=== PATIENT | female | born 1975 | race Caucasian/White ===

== ENCOUNTER → 2017-09-23 09:50 | Outpatient (CLI) | payer BC, SELFPAY ==
--- NOTE | 2017-09-23 15:02 | NEURO ---
NCS and/or EMG Patient Report Ordering Doctor: Vincenzo Garcia DATE OF SERVICE: 09/23/17 Sada Carlson is a 42 year old female with chief complaint of numbness and tingling in both hands. Electrodiagnostic findings: Prolonged median motor latency bilaterally with normal amplitude and reduced conduction velocity. Normal ulnar motor response bilaterally. Absent right median sensory latency measured at the wrist. Prolonged left median sensory latency is noted. Normal ulnar and radial sensory responses. On needle EMG, all muscles tested in the upper limbs show no evidence of denervation with normal unit action potentials Electrodiagnostic impression: This is an abnormal study in the upper limbs. 1. Findings demonstrate bilateral median mononeuropathy. This is consistent with a moderate to advanced bilateral carpal tunnel syndrome. If there are any further questions, please do not hesitate to contact me
== END ==
PROVIDERS: Family Provider Family Medicine; PCP Family Medicine; Visit Provider Family Medicine
DX: G56.03 Carpal tunnel syndrome, bilateral upper limbs (principal)
CPT/HCPCS: 95886; 95912

== ENCOUNTER 2019-04-22 09:00 | Outpatient (RCR) | payer BC, SELFPAY ==
--- NOTE | 2019-04-11 09:35 | HP.PTEVAL ---
Patient's Visit Information SHANIQUA DORAN is a 43 year old F referred to Physical Therapy by Vincenzo Garcia MD with a diagnosis of Vertigo.. Date of Evaluation: 04/11/19 Physical Therapist: Alden Soto, MATTHEWT, OCS, CSCS - Visit Plan Frequency: 1-2x /Week Duration: 2-4 Weeks Plan: 1-2x/week x 2-4 as needed for positional treatments and balance as needed. - Subjective Findings: Doc says I have vertigo. Tilting head , turning in bed, tilting, and the world spins and typically is under a minute. Has to stop and brace self. Feels normal in between these episodes. Balance is OK in between. This started a while ago patient says for years. Worse lately starting 1.5 weeks ago. Got dizzy flipping on couch to answer phone. Sleep is OK. Employed at [employer] and has not missed work. Activities at home are pretty normal but delayed if dizzyness occurs. - Objective Walks normal today with good balance except when asked to look up. Trasnfers normal. Steps reciprocal and normal. - R hallpike karolyn. + L halpike for slight up torsional nystagmus, some dizzyness and lots of blinking. treated with L [place] and then - Hallpike karolyn - Balance Scores Functional Gait Assessment Score: 29 % Disability: 3.3400 CATSIB Score (Max score 120 seconds): 120 - Goals Goal 1:: abolish vertigo 100% Goal Time Frame: 2-4 Weeks Goal 2:: Pt score perfect on DHI to minimze lifestyle impact. Goal Time Frame: 2-4 Weeks - Rehabilitation Potential Physical Therapy Diagnosis: BPPV L post canal Rehabilitation Potential: Fair - Anticipated Interventions Patient/Client Instruction: Educate patient on: Condition, Plan of Care For the Purpose of:: To increase tolerance to activity/condition/position, To improve balance Therapeutic Exercise to Include: Balance training Comment: positional For the Purpose of:: To increase tolerance to activity/condition/position, To improve balance Thank you for the opportunity to evaluate your patient. For Medicare and Medicare HMO plans, please review the plan of care and approve it. It will need to be FAXED BACK to us at [phone] for Medicare purposes. For Medicare only, by signing this I certify the plan of care. Please let me know if there are questions or concerns regarding this plan of care. Physician Signature: Date:
--- NOTE | 2019-04-22 09:16 | HP.PTDCSUM ---
It has been my pleasure to treat SHANIQUA DORAN referred by Vincenzo Garcia MD, with the diagnosis of Vertigo. for a total of 3 visit(s). Discharge Date: 04/22/19 Please see the following information for a summary of their discharge status. Subjective: Doing really well. Has some moments here adn there. One quick moment yesterday when she was tired. Mostly getting up too quick gives slight sensation for a moment. activities are normal. % Improvement: 90 Objective/Function: - B HD, - roll test. Walking normal and feeling much better. Goal 1:: abolish vertigo 100% Goal Progress: Progressing Goal 2:: Pt score perfect on DHI to minimze lifestyle impact. Goal Progress: Progressing Plan: d/c Discharge Comments: Pt to contact doctor if dizzyness worsens again. If there are questions or concerns regarding this patient's physical therapy, please feel free to call me at [phone]. Thank you for the referral of this patient. Sincerely, Alden Soto, DPT, OCS, CSCS
== END 2019-04-22 19:00 | disposition home or self-care (01) ==
LOC: PT 09:00
PROVIDERS: PCP Family Medicine; Referring Provider Family Medicine; Visit Provider Family Medicine
DX: R42 Dizziness and giddiness (principal)
CPT/HCPCS: 97161; 97530

== ENCOUNTER 2020-06-27 02:55 | Emergency (ER) | payer BC, SELFPAY ==
--- NOTE | 2020-06-27 03:25 | CT_ITS ---
STUDY: CT BRAIN WITHOUT CONTRAST REASON FOR EXAM: Female, 44 years old. Headache. RADIATION DOSAGE (If Supplied By Facility): CTDIvol = ( 44.99 ) mGy, DLP = ( 796.11 ) mGycm TECHNIQUE: Transaxial CT imaging of the brain was performed without administration of intravenous contrast material. Individualized dose optimization techniques were used for this CT. COMPARISON: No relevant priors. FINDINGS: Normal soft tissue structures. Normal calvarium. Normal size ventricles and extra-axial spaces for the patient''s age. Normal white matter tracts of the cerebral hemispheres. Normal basal ganglia and thalami. Normal brainstem. Normal cerebellum. Prominent empty sella. There is no intracranial hemorrhage. There are no findings of an acute ischemic infarction. 0.8 cm mucous retention cyst right sphenoid sinus. Mastoid air cells are well aerated. CT/Brain/Head without Contrast IMPRESSION: No acute intracranial abnormality as above. Electronically Signed: Gabriel Bolanos MD at 4:13 EDT , Service support ,
[2020-06-27 03:58] LABS: Absolute Lymphocyte Count 1.95 X10^3/uL (0.83-4.51); Absolute Neutrophil Count 2.4 X10^3/uL (2.0-7.7); Basophil# 0.05 X10^3/uL; Eosinophil# 0.16 X10^3/uL; Eosinophils% 3.2 % (0-5); Hematocrit 39.8 % (37-47); Hemoglobin 13.1 g/dL (12.0-15.0); Lymphocyte # 1.95 X10^3/ul (0.83-4.51); Lymphocyte % 39.2 % (19-41); Mean Corp Hgb Conc 32.9 g/dL (32-36); Mean Corpuscular Hgb 28.5 pg (27.0-32.0); Mean Corpuscular Volume 86.7 fL (81-99); Mean Platelet Vol. 10.3 fl (6.2-12.0); Monocyte# 0.38 X10^3/uL; Monocyte% 7.6 % (0-10); NRBC Flagged by Analyzer 0 % (0-5); Neutrophil % 48.4 % (47-70); Platelet Count 251 K/mm3 (150-450); RBC Distribution Width CV 12.3 % (11.6-14.6); RBC Distribution Width SD 39.1 fl (35.1-43.9); Red Blood Count 4.59 M/mm3 (4.2-5.4)
[2020-06-27 04:07] LABS: Anion Gap 5 (5-15); BUN 12 mg/dL (7-18); BUN/Creat Ratio 18.2 RATIO (10-20); Calcium,Total 8.7 mg/dL (8.5-10.1); Chloride 108 mmol/L (98-107); Creatinine, Serum 0.66 mg/dL (0.55-1.02); EST Glomerular Filtration Rate 103 mL/min (>60); Est Glom Filt Rate - Afr Amer 125 mL/min (>60); Glucose 116 mg/dL (74-106); Sodium Level 140 mmol/L (136-145)
--- NOTE | 2020-06-27 04:34 | EX.ED.VIS.HA ---
HPI History of Present Illness Informant: patient and family Onset/Context/Timing Onset: Yesterday (1300) Context: Gradual Timing: Continuous Quality -Headache: Positive for Throbbing Location: Left side of face and had Current Severity: Severe Maximum Severity: Severe Worsened by: Light and sound Relieved by: Nothing Associated Symptoms/Injury Associated Symptoms: Positive for Nausea and Photophobia; Negative for Fever, Vomiting, Sore Throat, Sinus Pressure, Numbness, Tingling, Preceding Aura, Visual Changes, Blurred Vision and Visual Loss Injury - BARRAZA: Negative for Direct Trauma, Fall and Assault Narrative Narrative: Patient is a middle-aged woman who presents with headache that started yesterday at 1300. Headache waxes and wanes in intensity. Made worse with sound and light. She denies double vision or blurred vision. Denies decreased hearing or ringing or ears. Denies neck pain or neck stiffness. She denies rhinorrhea, congestion or postnasal drainage pressure sore throat. She denies cardiac or respiratory symptoms. She does report nausea without vomiting diarrhea. She denies dysuria, frequency, urgency or hematuria. She denies trouble with balance or walking. Prior similar symptoms: No Recent Illness/Hospitalization: No PFSH PFSH Medical History (Updated 06/27/20 @ 04:[address] Salbador Hernandez MD) Depression Hypertension Hypothyroidism Social History (Updated 06/27/20 @ 04:[address] Salbador Hernandez MD) household members: family Smoking Status: Never smoker alcohol intake: never substance use type: does not use ROS ROS ED Constitutional Constitutional ED: Denies chills, fever(s), subjective or sweats Eyes Eyes: Denies blurry vision, change in vision or diplopia ENT ENT ED: Denies ear pain, rhinorrhea or sore throat Cardiovascular Cardiovascular: Denies chest pain, palpitations or racing heartbeat Respiratory/Chest Respiratory/Chest: Denies cough, dyspnea or dyspnea on exertion Gastrointestinal Gastrointestinal: Reports nausea; Denies abdominal pain, constipation, diarrhea, melena or vomiting Genitourinary Genitourinary ED: Denies dysuria, hematuria or urinary frequency Musculoskeletal Musculoskeletal: Denies arthralgias, back pain, myalgias or neck pain Integumentary Denies rash Neurologic Neurologic: Reports headache(s); Denies paresthesias or weakness Psychiatric Psychiatric: Reports depression; Denies suicidal thoughts Hematologic/Lymphatic Hematologic/Lymphatic: Denies easy bruising EXAM Physical Exam Const Positive well nourished, well developed and obese General Appearance ED: well developed; Negative for cyanotic or diaphoretic Nutritional Appearance: obese HEENT Reports normocephalic, TM's clear and moist mucous membranes HEENT Narrative: There is no asymmetry. There is no tenderness over the mastoid air spaces. atraumatic; Negative for temporal artery tenderness or vesicular rash Face and Sinus: Negative for sinus tenderness Tympanic Membrane ED: Yes TM's clear Eyes PERRL and EOMs intact bilaterally Eyes Narrative: There is no APD. Cup-to-disc ratio is normal. There is no papilledema. There is no nystagmus. General Eye ED: Negative for pale conjunctiva or scleral icterus Neck no lymphadenopathy, supple, no meningeal signs and no JVD Resp normal respiratory effort and clear to auscultation bilaterally Cardio regular rate, regular rhythm, S1 normal heart sound, S2 normal heart sound and no murmurs GI non-tender and non-distended Auscultation: normoactive bowel sounds Palpation: soft Back/Spine no CVA tenderness Thoracic Spine / Upper Back: Negative for thoracic spinal tenderness Lumbar Spine / Lower Back: Negative for lumbar spinal tenderness Extremity normal to inspection, full ROM and normal capillary refill Neuro oriented x3 and CN's II-XII intact bilaterally Sensorium / Orientation: awake and alert Coordination / Balance: [id number] test normal and [id number] test normal Speech: speech normal Motor Exam: strength 5/5 throughout Psych mental status grossly normal Skin Lesions: no lesions Rashes: no rashes MDM MDM MDM Narrative Medical decision making narrative: Differential diagnoses include subarachnoid hemorrhage, traumatic injury i.e. epidural, subdural or contusion. Also need to entertain possibility of sinus infection. Blood work was obtained to assess for white count, anemia and electrolyte abnormality. Patient was medicated with morphine and Zofran because of concern for bleed. When she was reassessed prior to discharge she states her pain was down to 1 and she did not appear in discomfort. Lab Data Labs: Laboratory Results - last 24 hr 06/27/20 06/27/20 03:13 03:13 WBC 5.0 RBC 4.59 Hgb 13.1 Hct 39.8 MCV 86.7 MCH 28.5 MCHC 32.9 RDW Std Deviation 39.1 RDW Coeff of Himanshu 12.3 Plt Count 251 MPV 10.3 Immature Gran % (Auto) 0.600 Neut % (Auto) 48.4 Lymph % (Auto) 39.2 [place] % (Auto) 7.6 Eos % (Auto) 3.2 Baso % (Auto) 1.0 Absolute Neuts (auto) 2.4 Absolute Lymphs (auto) 1.95 Nucleated RBC % 0 Sodium 140 Potassium 4.0 Chloride 108 H Carbon Dioxide 27.0 Anion Gap 5 BUN 12 Creatinine 0.66 Est GFR (MDRD) Af Amer 125 Est GFR (MDRD) Non-Af 103 BUN/Creatinine Ratio 18.2 Glucose 116 H Calcium 8.7 Radiography Diagnostic Testing: CT of the head was interpreted radiologist as negative for any acute findings. Discharge Plan Triage ED Provider: Salbador Hernadnez Dx/Rx/DC Orders Clinical Impression: Acute intractable headache Instructions: Understanding Headache Pain Primary Care Provider: Vincenzo Garcia Referrals: Vincenzo Garcia MD [Primary Care Provider] - As Needed Disposition Disposition: Home, self care
== END 2020-06-27 04:52 | disposition home or self-care (01) ==
PROVIDERS: Emergency Provider Emergency Medicine; PCP Family Medicine
DX: R51.9 Headache, unspecified (principal); I10 Essential (primary) hypertension; E66.9 Obesity, unspecified
CPT/HCPCS: 36415; 70450; 80048; 85025; 96374; 96375; 99284; J2405

== ENCOUNTER 2020-10-05 12:55 | Outpatient (RCR) | payer BC, SELFPAY | END 2020-11-09 23:59 | LOC: IMMUN 12:55 | PROVIDERS: PCP Family Medicine; Referring Provider Family Medicine; Visit Provider Family Medicine | DX: Z23 Encounter for immunization (principal) ==

== ENCOUNTER 2024-04-02 08:54 | Emergency (ER) | payer BC, SELFPAY ==
[2024-04-02 08:56] VITALS: BP 166/109; PULSE 100; RESP 18; TEMP 37.1; O2SAT 99
[2024-04-02 09:01] VITALS: BMI 44.3
--- NOTE | 2024-04-02 09:05 | ED.RN ---
PT CAME OVER FROM THE [facility] AND STATES SHE WAS COUGHING AND TURNED BLUE AND THE DR TOLD THE PT SHE IS TO COME TO THE ED. SHE DROVE HERE WITH HER MOM. PT O2 SAT IS 98% RA, HR 95, AND BP 163/98. PT HAS HTN AND DID NOT TAKE HER BP MEDICATION THIS MORNING.
--- NOTE | 2024-04-02 09:12 | EDS_ITS ---
HPI HPI - URI History of Present Illness Chief Complaint: Cough Informant: patient Narrative Narrative: Healthy 48-year-old female presents with a cough that started last night. She has coughing fits that makes it feel like she cannot breathe or take of breath, which is why she presented to urgent care, and the patient states that they advised that she come to the ER without doing any testing. She does not have a history of asthma. She denies any fevers, headaches, or dyspnea when she is not coughing. She has become hoarse already from this. She denies sore throat, earache, facial pressure, GI symptoms. She works at a [employer] and states there have been multiple employees out from illnesses. ROS ROS ED Constitutional Constitutional ED: Denies chills or fever(s) ENT ENT ED: Reports nasal congestion and rhinorrhea; Denies ear pain or sore throat Cardiovascular Cardiovascular: Denies chest pain or palpitations Respiratory/Chest Respiratory/Chest: Reports as per HPI, cough and dyspnea Gastrointestinal Gastrointestinal: Denies abdominal pain, diarrhea, nausea or vomiting Genitourinary Genitourinary ED: Denies dysuria or hematuria Musculoskeletal Musculoskeletal: Denies myalgias or neck pain Integumentary Denies abscess or rash Neurologic Neurologic: Denies headache(s), paresthesias or weakness Endocrine Endocrinology: Denies polydipsia or polyuria [facility] Medical History (Updated 04/02/24 @ 10:[address] Derian Perkins MD) Depression Hypothyroidism Hypertension Home Medications ?Medication ?Instructions ?Recorded ?Last Taken ?Type albuterol sulfate 90 mcg/actuation 1 - 2 puff inhalati on Q4H PRN PRN 04/02/24 Unknown Rx aerosol inhaler (Ventolin HFA) Wheezing ##1 Allergy/AdvReac Type Severity Reaction Status Date / Time amoxicillin AdvReac Mild Rash Verified 04/02/24 09:07 Social History household members: family Smoking Status: Never smoker alcohol intake: never substance use type: does not use EXAM Physical Exam Const Vital Signs: 04/02/24 08:56 04/02/24 09:05 04/02/24 09:23 Temperature 98.8 F Temperature Source Temporal Pulse Rate 100 89 Respiratory Rate 18 20 H Respiratory Effort Normal Respiratory Depth Normal Respiratory Pattern Normal Normal Blood Pressure 166/109 H Blood Pressure Mean 128 Pulse Ox 99 Oxygen Delivery Method Room Air Positive well nourished, well developed and obese General Appearance ED: well developed and NAD Nutritional Appearance: obese HEENT Reports moist mucous membranes HEENT Narrative: Mild hoarseness of voice no stridor normocephalic and atraumatic Throat: Negative for posterior oropharynx abnormal Eyes PERRL and EOMs intact bilaterally Neck no lymphadenopathy, supple and no meningeal signs Resp normal respiratory effort and clear to auscultation bilaterally Resp Narrative: Frequent bronchospasm when attempts to take a deep breath otherwise lungs clear. Cardio no murmurs Rate: regular rate Rhythm: regular rhythm GI non-tender Auscultation: normoactive bowel sounds Palpation: soft Back/Spine normal ROM Extremity normal to inspection and full ROM Neuro oriented x3, CN's II-XII intact bilaterally and no sensory deficits noted Sensorium / Orientation: alert Motor Exam: strength 5/5 throughout Psych mental status grossly normal Skin Lesions: no lesions Rashes: no rashes MDM MDM MDM Narrative Medical decision making narrative: Vital signs noted and unremarkable. She has bronchospasm with bronchitis, swab is positive for influenza A. Chest x-ray 2 views negative for pneumonia on my interpretation. She is doing a lot better after albuterol treatment. Given work note, prescription for albuterol inhaler, and instructions for supportive care and reasons to return she comfortable with that plan. Discharge Plan Triage Chief Complaint: Cough ED Provider: Derian Perkins Dx/Rx/DC Orders Clinical Impression: Influenzal bronchitis Instructions: ED Influenza (Adult) Prescriptions: New albuterol sulfate [Ventolin HFA] 90 mcg/actuation HFA aerosol inhaler 1 - 2 puff inhalation Q4H PRN PRN (Reason: Wheezing) Qty: 1 0RF Stand Alone Forms: ED Work / School Excuse Primary Care Provider: Vincenzo Garcia Referrals: Vincenzo Garcia MD [Primary Care Provider] - 1 Week if not improving Print Language: Bolivian Disposition Disposition: Home, Self Care
--- NOTE | 2024-04-02 09:15 | RAD_ITS ---
PROCEDURE: CHEST PA AND LATERAL REASON FOR EXAM: Cough, bronchospasm TECHNIQUE: Frontal and lateral views of the chest. COMPARISON: None. FINDINGS: The heart size is normal. The mediastinal contour is unremarkable. The lungs are clear. The bones are unremarkable. RAD/Chest PA and Lateral IMPRESSION: No radiographic evidence of acute cardiopulmonary disease Reading Location: [facility]
[2024-04-02] MEDS: Albuterol 2.5 MG/3 ML VIAL.NEB. INHALATION (09:22)
[2024-04-02 09:23] VITALS: PULSE 89; RESP 20
[2024-04-02 10:50] VITALS: BP 146/117; PULSE 93; RESP 19; TEMP 36.8; O2SAT 98
--- NOTE | 2024-04-02 10:53 | ED.RN ---
PT AWARE SHE NEEDS TO TAKE HER BP MEDS THAT SHE WAS SUPPOSE TO TAKE THIS MORNING BUT DID NOT BEFORE COMING TO THE ED.
[2024-04-02 11:07] VITALS: BP 126/86; PULSE 96; RESP 17; O2SAT 98
== END 2024-04-02 11:08 | disposition home or self-care (01) ==
PROVIDERS: Emergency Provider Emergency Medicine; PCP Family Medicine; Visit Provider Emergency Medicine
DX: J11.1 Influenza due to unidentified influenza virus with other respiratory manifestations (principal); J20.9 Acute bronchitis, unspecified; E66.9 Obesity, unspecified; Z88.0 Allergy status to penicillin
CPT/HCPCS: 71046; 87631; 94640; 99282

== ENCOUNTER 2024-07-18 04:57 | Emergency (ER) | payer BC, SELFPAY ==
[2024-07-18 04:58] VITALS: BP 178/108; PULSE 92; RESP 18; TEMP 36.7; O2SAT 97; BMI 43.5
--- NOTE | 2024-07-18 05:09 | EKG12_ITS ---
Test Reason : HEADACHE Blood Pressure : */* mmHG Vent. Rate : 78 BPM Atrial Rate : 78 BPM P-R Int : 130 ms QRS Dur : 76 ms QT Int : 396 ms P-R-T Axes : 30 36 37 degrees QTcB Int : 451 ms Normal sinus rhythm Normal ECG Confirmed by Jong Pinedo ([id number]), editor in chief TUAN CUMMINGS ([id number]) on 07/19/2024 6:15:41 AM Referred By: Confirmed By: Jong Pinedo
--- NOTE | 2024-07-18 05:09 | EX.ED.DYSGE1 ---
HPI History of Present Illness Chief Complaint: Headache Narrative Narrative: Patient is a 48-year-old female with past medical history migraine headaches, hypertension, hypothyroidism, depression who presents to the emergency department with a chief complaint of migraine headache. Patient states that when she woke up she noted that she had a migraine headache with pain in the left side of her neck rating to her left arm. She states that she tried to take ibuprofen prior to calling EMS to have her brought here for further evaluation management. States that currently here in the emergency department she feels like the ibuprofen is helping her. Patient denies any specific injuries to her neck. Patient is unsure if she slept wrong. Patient denies any sick contacts denies any fevers PFSH [facility] Medical History Depression Hypothyroidism Hypertension Home Medications ?Medication ?Instructions ?Recorded ?Last Taken ?Type bupropion HCl 300 mg 24 hr tablet, 300 mg PO DAILY 07/18/24 Unknown History extended release citalopram 40 mg tablet 40 mg PO DAILY 07/18/24 Unknown History ergocalciferol (vitamin D2) 1,250 1,250 mcg PO QWEEK 07/18/24 Unknown History mcg (50,000 unit) capsule levothyroxine 75 mcg tablet 75 mcg PO DAILY 07/18/24 Unknown History metoprolol succinate 50 mg 50 mg PO DAILY 07/18/24 Unknown History tablet,extended release 24 hr Allergy/AdvReac Type Severity Reaction Status Date / Time amoxicillin AdvReac Mild Rash Verified 07/18/24 04:58 Social History household members: family Smoking Status: Never smoker alcohol intake: never substance use type: does not use ROS ROS ED ROS Narrative Constitutional: Complains of headache as noted above denies fever, chills, lightheadedness, dizziness Eyes: Denies change in vision double vision blurry vision Cardiovascular: Denies chest pain Respiratory: Denies coughing wheezing shortness of breath Abdomen: Complains of nausea denies vomiting or diarrhea denies abdominal pain Neurological: Denies numbness, wheeze, tingling Musculoskeletal: Denies back pain Skin: Denies rashes or lesions EXAM Physical Exam Narrative Exam Narrative: General: Patient lying in bed rest comfortably did appear to be uncomfortable secondary to her headache Head: Atraumatic, normocephalic Eyes: PERRL bilaterally, EOMI bilaterally, no conjunctival injection noted Neck: Soft, supple, trachea midline Cardiovascular: Regular rate and rhythm Respiratory: Clear to auscultation bilaterally Abdomen: No tenderness palpation Extremities: +5/5 strength in the bilateral upper and lower extremities, radial pulses +2/4 in the bilateral extremities, no pedal edema on exam Neurological: Patient following commands knew that this she was at [facility] years 2024 NIH of 0 GCS 15 Skin: Warm, dry, intact no rashes or lesions noted Const Vital Signs: 07/18/24 04:58 Temperature 98.1 F Temperature Source Oral Pulse Rate 92 Respiratory Rate 18 Blood Pressure 178/108 H Blood Pressure Mean 131 Pulse Ox 97 Oxygen Delivery Method Room Air MDM MDM MDM Narrative Medical decision making narrative: Patient is a 48-year-old female who presented to the emergency department chief complaint of left-sided neck pain, migraine headache. On the differential diagnose includes but not limited to ACS, migraine headache, tension headache, cluster headache. Once workup is obtained reviewed she will be reevaluated. Patient be given IV fluids, Reglan, a gram of Tylenol. Patient was noted be hypertensive when she arrived she states that she has been taking her blood pressure medications as prescribed On reevaluation patient she is feeling much better she would like to go home at this point time. Patient was hypertensive here in the emergency department she states that she takes her blood pressure medication in the morning. She is advised that she needs to take these when she gets home and she should keep a close eye on her blood pressure over the next several days. She was advised to follow-up with her doctor in outpatient and return with worsening symptoms or any other concerns. All question concerns answered she is discharged home in stable condition. Patient was agreeable with this plan. Discharge Plan Triage Chief Complaint: Headache ED Provider: Iker Self Dx/Rx/DC Orders Clinical Impression: Migraine, Hypertension Prescriptions: No Action levothyroxine 75 mcg tablet 75 mcg PO DAILY citalopram 40 mg tablet 40 mg PO DAILY metoprolol succinate 50 mg tablet extended release 24 hr 50 mg PO DAILY ergocalciferol (vitamin D2) 1,250 mcg (50,000 unit) capsule 1,250 mcg PO QWEEK Patient Comments: FRIDAYS bupropion HCl 300 mg tablet extended release 24 hr 300 mg PO DAILY Primary Care Provider: Vincenzo Garcia Referrals: Vincenzo Garcia MD [Primary Care Provider] - Activity Restrictions/Additional Instructions: Follow-up with your doctor in the outpatient setting. Return with worsening symptoms or any other concerns. Ensure you are adequately hydrating. Take your blood pressure medication when you get home as it was high here in the emergency department. Keep a close eye on your blood pressure over the next several days by randomly taking your blood pressure 2-3 times a day randomly write this down on a piece of paper the time you took it and what the blood pressure reading was. Take it to your primary care doctor for further review. Rotate Tylenol and ibuprofen [id number] for your headache control. When you do this you can take something every 3 hours max dose of Tylenol in 24 hours 4000 mg max dose of ibuprofen in 24 hours 3200 mg Print Language: Luxembourger Disposition Disposition: Home, Self Care
[2024-07-18] MEDS: 0.9% Normal Saline (1000mL) 1,000 ML 999 ML IV (05:15)
[2024-07-18] MEDS: Acetaminophen 500 MG Tablet 1000 MG PO (05:15)
[2024-07-18] MEDS: Metoclopramide 10 MG/2 ML Vial IV (05:15)
--- OUTSIDE RECORDS SUMMARY | 2024-07-18 05:27 | XMS RPT_ITS | CCD ---
Author Organization [facility] ion Partnership [facility] Care Team Providers Care 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 Name Role Phone VINCENZO GARCIA Unavailable Unavailable Thuy HAYES, Vincenzo Candelario Primary Care Provider Haagen INTERNAL MEDICINE VETERINARY TECHNICIAN.Jacqueline GOFF Unavailable Suppan INTERNAL MEDICINE VETERINARY TECHNICIAN.STONE CRUSHER OPERATOR, Griselda A Unavailable Suppan INTERNAL MEDICINE VETERINARY TECHNICIAN.SHELL Griselda A Unavailable Vincenzo Garcai Primary Care Unavailable Derian Perkins Attending Unavailable THUY, VINCENZO Candelario Primary Care Unavailable JACQUELINE SERRATO Referring Unavailable MERLENE JENKINS Attending Unavailable THUY, VINCENZO Candelario Primary Care Unavailable FABIANO, JACQUELINE Referring Unavailable THUY, VINCENZO Candelario Primary Care Unavailable THUY, VINCENZO Candelario Primary Care Unavailable JACQUELINE SERRATO Attending Unavailable THUY, VINCENZO Candelario Primary Care Unavailable JACQUELINE SERRATO Attending Unavailable THUY, VINCENZO Candelario Attending Unavailable THUY, VINCENZO Candelario Primary Care Unavailable THUY, VINCENZO Candelario Referring Unavailable THUY, VINCENZO Candelario Primary Care Unavailable THUY, VINCENZO Candelario Primary Care Unavailable JACQUELINE SERRATO Attending Unavailable TUHY, VINCENZO Candelario Primary Care Unavailable THUY, VINCENZO Candelraio Referring Unavailable THUY, VINCENZO Candelario Primary Care Unavailable HAAGENJACQUELINE Referring Unavailable THUY, VINCENZO Candelario Primary Care Unavailable JACQUELINE SERRATO Referring Unavailable Allergies Allergy Classification Reported Allergen(s) Allergy Type Date of Onset Reaction(s) Facility Albuterol (1 source) Albuterol Drug Allergy 6 Shortness of Breath [facility] Chlorhexidine (1 source) Chlorhexidine Drug Allergy 8 Rash [facility] Penicillins (antibiotic) (1 source) Amoxicillin Drug Allergy 6 Hives [facility] (20 sources) albuterol; Translations: [ALBUTEROL SULFATE] Drug Allergy 6 Shortness of Breath [facility] Other [facility] (20 sources) amoxicillin; Translations: [AMOXICILLIN] Drug Allergy 6 Hives [facility] Rep[facility] (20 sources) Chlorhexidine; Translations: [CHLORHEXIDINE] Drug Allergy 8 Rash [facility] Work Phone: Medications Current Medications Medication Drug Class(es) Dates Sig (Normalized) Sig (Original) benzonatate 100 mg oral capsule (3 sources) Non-narcotic Antitussive Start: 04-04-2024 take 1 capsule by mouth three times daily as needed benzonatate (TESSALON PERLE) 100 mg capsule Indications: Bronchitis , Influenza A Take 1 capsule by mouth three times a day as needed. 30 capsule 04/04/2024 Active Start: 03-16-2023 End: 03-23-2023 take 1 capsule by mouth every eight hours as needed for cough and cough benzonatate (TESSALON PERLES) 100 mg capsule Indications: Acute cough Take 1 capsule by mouth three times a day as needed for up to 7 days. 21 capsule 0 03/16/2023 03/23/2023 Active Comment on above: Take [address] [facility] three times a day as needed for up to 7 days. 24 hr buPROPion hydrochloride 300 mg extended release oral tablet (20 sources) Aminoketone Start: End: take 1 tablet by mouth once daily buPROPion XL (WELLBUTRIN XL) 300 mg 24 hr tablet Indications: Anxiety with depression Take 1 tablet by mouth once daily. 90 tablet 1 05/18/2023 Active Start: 03-02-2023 End: 08-29-2023 take 1 tablet by mouth once daily buPROPion XL (WELLBUTRIN XL) 150 mg 24 hr tablet Indications: Anxiety with depression Take 1 tablet by mouth once daily. 90 tablet 1 03/02/2023 05/18/2023 Discontinued Start: 01-24-2021 End: 07-02-2022 take 1 tablet by mouth once daily buPROPion XL (WELLBUTRIN XL) 150 mg 24 hr tablet Indications: Anxiety with depression Take 1 tablet by mouth once daily. 90 tablet 3 01/24/2021 07/02/2022 Discontinued Comment on above: Take 1 tablet by jona th once daily. cholecalciferol 1.25 mg oral capsule (20 sources) Vitamin D Start: End: take 1 capsule by mouth every week cholecalciferol, Vitamin D3, (VITAMIN D3) 1,250 mcg (50,000 unit) cap capsule Indications: vitamin D deficiency Take 1 capsule by mouth one time a week. 12 capsule 1 04/01/2024 Active Start: 02-03-2023 End: 10-10-2023 take 1 capsule by mouth every week cholecalciferol, Vitamin D3, (VITAMIN D3) 1,250 mcg (50,000 unit) cap capsule Indications: vitamin D deficiency Take 1 capsule by mouth one time a week. 12 capsule 1 05/11/2023 10/10/2023 Discontinued Comment on above: Take 1 capsule by mo ut one time a week. citalopram 40 mg oral tablet (20 sources) Serotonin Reuptake Inhibitor Start: 03-02-2023 End: 02-04-2024 take 1 tablet by mouth once daily citalopram (CELEXA) 40 mg tablet Indications: Anxiety Take 1 tablet by mouth once daily. 90 tablet 1 02/05/2024 Active Start: 05-28-2020 take 1 tablet by jona th once daily citalopram (CELEXA) 40 mg tablet Indications: Anxiety Take 1 tablet by mouth once daily. 90 tablet 1 05/28/2020 Active Comment on above: Take 1 tablet by jona th once daily. COMPOUNDED PRESCRIPTION (20 sources) Start: 04-23-2018 COMPOUNDED PRESCRIPTION Indications: ROMAN (obstructive sleep apnea) AutoPAP 5-15 cmH2O with heated humidification A medium Respironics Jolly View full face mask without chin strap 1 Each 04/23/2018 Active Start: 04-23-2018 COMPOUNDED PRE SCRIPTION Indications: ROMAN (obstructive sleep apnea) AutoPAP 5-15 cmH2O with heated humidification A medium Respironics Jolly View full face mask without chin strap 1 Each 0 04/23/2018 Active Comment on above: AutoPAP 5-15 cmH2O w ith heated humidification A medium Respironics Jolly View full face mask without chin strap cyclobenzaprine hydrochloride 10 mg oral tablet (20 sources) Muscle Relaxant Start: 2022 take 1 tablet by mouth twice daily as needed for muscle spasms cyclobenzaprine (FLEXERIL) 10 mg tablet Indications: Myalgia , Polyarthralgia Take 1 tablet by mouth two times a day as needed for muscle spasm. 60 tablet 01/30/2023 Active Comment on above: Take 1 tablet by jona th two times a day as needed for muscle spasm. levothyroxine sodium 0.075 mg oral tablet (20 sources) l-Thyroxine Start: 2023 take 1 tablet by mouth once daily before breakfast levothyroxine (SYNTHROID) 75 mcg tablet Indications: Hypothyroidism, unspecified type Take 1 tablet by mouth daily before breakfast. 90 tablet 1 03/02/2023 Active Start: 06-04-2020 take 1 tablet by jona th once daily before breakfast levothyroxine (SYNTHROID) 75 mcg tablet Indications: Hypothyroidism, unspecified type Take 1 tablet by mouth daily before breakfast. 90 tablet 1 06/04/2020 Active Comment on above: Take 1 tablet by jona th daily before breakfast. meloxicam 15 mg oral tablet (20 sources) Nonsteroidal Anti-inflammatory Drug Start: 3 End: 4 take 1 tablet by mouth once daily as needed meloxicam (MOBIC) 15 mg tablet Take 1 tablet by mouth once daily as needed. With food. 90 tablet 1 03/02/2023 Active Comment on above: Take 1 tablet by jona th once daily. With food. Take 1 tablet by jona th once daily as needed. With food. 24 hr metoprolol succinate 50 mg extended release oral tablet (20 sources) beta-Adrenergic Shakila Start: 4 End: 5 take 1 tablet by mouth once daily metoprolol succinate ER (TOPROL XL) 50 mg 24 hr tablet Indications: Headache, unspecified headache type , Essential hypertension Take 1 tablet by mouth once daily. 90 tablet 3 11/02/2023 11/01/2024 Active Start: 03-02-2023 End: 11-02-2023 take 1 tablet by mouth once daily metoprolol succinate ER (TOPROL XL) 25 mg 24 hr tablet Indications: Essential hypertension Take 1 tablet by mouth once daily. 90 tablet 3 03/02/2023 11/02/2023 Discontinued Start: 01-06-2022 End: 07-05-2022 take 1 tablet by mouth once daily metoprolol succinate ER (TOPROL XL) 25 mg 24 hr tablet Indications: Essential hypertension Take 1 tablet by mouth once daily. 90 tablet 3 01/06/2022 Active Start: 05-30-2020 take 1 tablet by jona th once daily metoprolol succinate ER (TOPROL XL) 25 mg 24 hr tablet Indications: Essential hypertension Take 1 tablet by mouth once daily. 90 tablet 3 05/30/2020 Active Comment on above: Take 1 tablet by jona th once daily. predniSONE 20 mg oral tablet (2 sources) Start: 04-04-2024 End: 04-09-2024 take 2 tablets by mouth once daily predniSONE (DELTASONE) 20 mg tablet Indications: Bronchitis , Influenza A Take 2 tablets by mouth once daily for 5 days. 10 tablet 04/04/2024 04/09/2024 Active Start: 03-16-2023 End: 03-25-2023 predniSONE (DELTASONE) 10 mg tablet Indications: Acute cough Take 4 tabs daily for 3 days, then 2 tabs daily for 3 days, then 1 tab daily for 3 days with food. 21 tablet 0 03/16/2023 03/25/2023 Active Comment on above: Take 4 tabs daily fo r 3 days, then 2 tabs daily for 3 days, then 1 tab daily for 3 days with food. rizatriptan 10 mg disintegrating oral tablet (11 sources) Serotonin-1b and Serotonin-1d Receptor Agonist Start: take 1 tablet by mouth every two hours as needed rizatriptan (MAXALT-DETECTIVE) 10 mg disintegrating tablet Indications: Headache, unspecified headache type Take 1 tablet (10 mg) by mouth as needed. May repeat dose after 2 hours if needed. Maximum daily dose is 30 mg per day. 9 tablet 1 11/23/2023 Active Completed/Discontinued Medications Medication Drug Class(es) Dates Sig (Normalized) Sig (Original) SUMAtriptan 50 mg oral tablet (3 sources) Serotonin-1b and Serotonin-1d Receptor Agonist Start: 11-02-2023 End: 11-23-2023 take 1 tablet by mouth once daily as needed for headache SUMAtriptan (IMITREX) 50 mg tablet Indications: Headache, unspecified headache type Take 1 tablet (50 mg) by mouth once daily as needed for migraine headache (see administration instructions). 9 tablet 11/02/2023 11/23/2023 Discontinued Problems Active Problems Problem Classification Problem Date Documented Da te Episodic/Chronic Anal and rectal conditions (1 source) Anorectal pain; Translations: [Other specified diseases of anus and rectum] Episodic Anxiety disorders (20 sources) Anxiety; Translations: [Anxiety disorder, unspecified] Onset: 06-04-2017 06-04-2017 Chronic Blindness and vision defects (1 source) Visual disturbance; Translations: [Unspecified visual disturbance] Episodic Essential hypertension (20 sources) Essential hypertension; Translations: [Essential (primary) hypertension] Onset: 12-05-2019 12-05-2019 Chronic Headache; including migraine (1 source) Headache; including migraine; Translations: [Headache, unspecified headache type] Onset: 11-02-2023 Hemorrhoids (1 source) Internal hemorrhoids; Translations: [Other hemorrhoids] Episodic Nutritional deficiencies (5 sources) Vitamin D deficiency; Translations: [Vitamin D deficiency, unspecified] Onset: 12-21-2023 05-11-2023 Chronic Other connective tissue disease (3 sources) Muscle pain; Translations: [Myalgia, unspecified site] 05-11-2023 Episodic Other inflammatory condition of skin (1 source) Pruritus ani; Translations: [Pruritus ani] Episodic Other lower respiratory disease (1 source) Cough; Translations: [Acute cough] 03-16-2023 Episodic Other lower respiratory disease (1 source) Dyspnea; Translations: [Shortness of breath] 04-02-2024 Episodic Other nervous system disorders (20 sources) Bilateral carpal tunnel syndrome; Translations: [Carpal tunnel syndrome, bilateral upper limbs] Onset: 10-27-2017 11-26-2017 Chronic Other non-traumatic joint disorders (3 sources) Multiple joint pain; Translations: [Pain in unspecified joint] 05-11-2023 Episodic Other screening for suspected conditions (not mental disorders or infectious disease) (8 sources) Patient encounter status; Translations: [Encounter for screening for malignant neoplasm of colon] Episodic Other skin disorders (1 source) Epidermoid cyst; Translations: [Epidermal cyst] 08-14-2023 Episodic Other upper respiratory disease (2 sources) Bleeding from nose; Translations: [Epistaxis] 06-20-2023 Episodic Residual codes; unclassified (20 sources) Obstructive sleep apnea syndrome; Translations: [Obstructive sleep apnea (adult) (pediatric)] Onset: 10-14-2017 10-14-2017 Chronic Residual codes; unclassified (1 source) Treatment not available; Translations: [Procedure and treatment not carried out for other reasons] Episodic Thyroid disorders (20 sources) Hypothyroidism; Translations: [Hypothyroidism, unspecified] Onset: 06-04-2017 06-04-2017 Chronic Unclassified (1 source) Obstructive sleep apnea (adult) (pediatric); Translations: [Obstructive sleep apnea (adult) (pediatric)] Onset: 10-05-2017 Chronic Unclassified (1 source) Cough, unspecified; Translations: [Cough, unspecified] Onset: 04-15-2024 Viral infection (1 source) Verruca vulgaris; Translations: [Viral wart, unspecified] Episodic Past or Other Problems Problem Classification Problem Date Documented Da te Episodic/Chronic Chronic obstructive pulmonary disease and bronchiectasis (2 sources) Bronchitis; Translations: [Bronchitis, not specified as acute or chronic] Onset: 04-04-2024 04-04-2024 Episodic Headache; including migraine (19 sources) Acute headache; Translations: [Acute headache] Onset: 03-08-2022 Resolved: 03-08-2022 03-08-2022 Episodic Influenza (2 sources) Influenza due to Influenza A virus; Translations: [Influenza due to other identified influenza virus with other respiratory manifestations] Onset: 04-04-2024 04-04-2024 Episodic Other upper respiratory infections (3 sources) Acute upper respiratory infection; Translations: [Acute upper respiratory infection, unspecified] Onset: 04-04-2024 03-16-2023 Episodic Spondylosis; intervertebral disc disorders; other back problems (18 sources) Neck pain; Translations: [Cervicalgia] Onset: 12-28-2023 01-30-2023 Episodic Unclassified (1 source) Patient encounter status 06-14-2024 Results Test Name Value Interpretation Reference Range Facility OVon 04-04-2024 CNOV Office Visit (FAMPWS ) SHANIQUA CARLSON ([id number]) 1975 F Date Time Provider Department 04/04/24 2:20 PM JACQUELINE SERRATO During your visit today, we recorded the following information about you: Pulse Respiration Blood pressure 105/minute 16/minute 136/92 Jacqueline Serrato APRN.STONE CRUSHER OPERATOR 04/04/2024 7:43 PM Signed 48 year old female with c/o URI sx over the last 3 days with Flu A Tested positive for flu on Thursday Was seen at urgent care, during visit she started to cough and lose color She was sent to the ER Received dex bocanegra in the ER Was given an inhaler at the ER and has been using that with some relief Has trouble taking deep breaths CXR at ER was negative Sore throat: Yes. Runny/stuffy nose: Yes. Postnasal drip: Sometimes. Throat clearing: No. Sinus pain/ pressure: Yes. Teeth pain: Yes. Headache Sometimes. Body aches Yes. Ear pain: Yes. Cough: Yes. Production: Yes. Fever: 100.2 on 04/02 at urgent care. Hx asthma No. Hx pneumonia No. Smoker: No. OTC meds tried: mucinex. ACTIVE PROBLEM LIST Hypothyroid Anxiety Roman (Obstructive Sleep Apnea) Bilateral Carpal Tunnel Syndrome Essential Hypertension Neck Pain Current Outpatient Medications Medication Sig Dispense Refill cholecalciferol, Vitamin D3, (VITAMIN D3) 1,250 mcg (50,000 unit) cap capsule Take 1 capsule by mouth one time a week. 12 capsule 1 citalopram (CELEXA) 40 mg tablet Take 1 tablet by mouth once daily. 90 tablet 1 rizatriptan (MAXALT-DETECTIVE) 10 mg disintegrating tablet Take 1 tablet (10 mg) by mouth as needed. May repeat dose after 2 hours if needed. Maximum daily dose is 30 mg per day. 9 tablet 1 metoprolol succinate ER (TOPROL XL) 50 mg 24 hr tablet Take 1 tablet by mouth once daily. 90 tablet 3 buPROPion XL (WELLBUTRIN XL) 300 mg 24 hr tablet Take 1 tablet by mouth once daily. 90 tablet 1 meloxicam (MOBIC) 15 mg tablet Take 1 tablet by mouth once daily as needed. With food. 90 tablet 1 levothyroxine (SYNTHROID) 75 mcg tablet Take 1 tablet by mouth daily before breakfast. 90 tablet 1 cyclobenzaprine (FLEXERIL) 10 mg tablet Take 1 tablet by mouth two times a day as needed for muscle spasm. 60 tablet 0 COMPOUNDED PRESCRIPTION AutoPAP 5-15 cmH2O with heated humidification A medium Respironics Jolly View full face mask without chin strap 1 Each 0 No current facility-administered medications for this visit. OBJECTIVE: BP 136/92 Pulse 105 Resp 16 LMP 06/03/2019 SpO2 96% General Appearance: Well appearing, alert, in no acute distress, well-hydrated, well nourished.. Skin: Skin color, texture, turgor normal, no suspicious rashes or lesions. Head: Normocephalic, no masses, lesions, tenderness or abnormalities. Eyes: Anicteric sclera. Pupils are equally round and reactive to light. Extraocular movements are intact. . Ears: External ears normal, canals clear. Nose/Sinuses: Nares normal, septum midline, mucosa normal, no drainage or sinus tenderness, Positive findings: clear rhinorrhea, post nasal drainage. Oropharynx: Lips, mucosa, and tongue normal, teeth and gums normal, oropharynx normal. Neck: Supple, no adenopathy; thyroid symmetric, normal size, no bruits. Lungs: Lungs clear to auscultation. No wheezing, rhonchi, rales. Bronchospasm cough elicited with deep breaths. Heart: RRR without murmur, gallop, or rubs. No ectopy. Neurologic: Gait normal. Reflexes normal and symmetric. Sensation grossly intact. ASSESSMENT/PLAN: 1. Bronchitis - ICD9: 490, ICD10: J40 (primary diagnosis) - Start taking steroid - Start taking tessalon perles for cough - Discussed with patient to follow up for worsening signs or symptoms - PREDNISONE 20 MG TABLET - BENZONATATE 100 MG CAPSULE 2. URI, acute - ICD9: 465.9, ICD10: J06.9 - Discussed viral etiology and rationale for treatment. - Symptomatic treatment with prn analgesia - Supportive care with fluids and rest - The patient may also use OTC decongestants prn, OTC cough and cold meds as needed, warm salt water gargles, throat lozenges and/or OTC throat spray as needed, and nasal saline gtts and suction prn. 3. Influenza A - ICD9: 487.1, ICD10: J10.1 - Continue supportive care with fluids and rest - Continue OTC measures such as tylenol, mucinex - PREDNISONE 20 MG TABLET - BENZONATATE 100 MG CAPSULE Plan: Nasal saline, decongestant, cool mist, rest , fluids, good nutrition Observation 5-7 days for improvment If worse, fever > 101F : call or return See orders and/or patient instructions. Patient ( or Guardian) expressed understanding of instructions on review. Discussed treatment plan and patient voices understanding. Patient's questions answered appropriately. Medications and potential side effects were discussed and patient voices understanding. Return to the office as scheduled or as needed for worsening/no improvement. (more content not included)... Normal [facility] CNOVon 04-02-2024 CNOV Office Visit (UCWSTR ) SHANIQUA CARLSON ([id number]) 1975 F Date Time Provider Department 04/02/24 8:45 AM SAPPHIRE DANGELO [facility] During your visit today, we recorded the following information about you: Temperature Pulse Respiration Blood pressure 100.2 degrees 85/minute 22/minute 140/100 Weight 119.4 kg Sapphire Dangelo APRN.STONE CRUSHER OPERATOR 04/02/2024 8:51 AM Signed Female with complaints of upper respiratory issues. Upon walking in the room and exam patient started coughing and gasping for air. Patient was tripoding to get air. It took her a few seconds to get herself together. Patient was starting to turn a blue-purple color. Patient was able to pull herself together but at this time due to patient's cough and difficulty getting air patient is being referred to the emergency room for more thorough evaluation. Patient was agreeable and they will go now. Allergies As of Date: 04/02/2024 Noted Allergy Reaction AMOXICILLIN 12/15/2005 4 - Hives CHLORHEXIDINE 01/11/2018 2 - Rash Comments: Chlorapep VENTOLIN (ALBUTEROL SULFATE) 12/15/2005 12 - Shortness of Breath Date Reviewed: 04/02/2024 Reviewed by: Carey Curtis MA - Fully Assessed Reason for Visit: Cough [28] Cmt: Congestion, sore throat, chest pain, sob x 1 day Primary Visit Diagnosis:SOB (shortness of breath) [R06.02] Prescriptions as of 04/02/2024 - cholecalciferol, Vitamin D3, (VITAMIN D3) 1,250 mcg (50,000 unit) cap capsule Take 1 capsule by mouth one time a week. - citalopram (CELEXA) 40 mg tablet Take 1 tablet by mouth once daily. - rizatriptan (MAXALT-DETECTIVE) 10 mg disintegrating tablet Take 1 tablet (10 mg) by mouth as needed. May repeat dose after 2 hours if needed. Maximum daily dose is 30 mg per day. - metoprolol succinate ER (TOPROL XL) 50 mg 24 hr tablet Take 1 tablet by mouth once daily. - buPROPion XL (WELLBUTRIN XL) 300 mg 24 hr tablet Take 1 tablet by mouth once daily. - meloxicam (MOBIC) 15 mg tablet Take 1 tablet by mouth once daily as needed. With food. - levothyroxine (SYNTHROID) 75 mcg tablet Take 1 tablet by mouth daily before breakfast. - cyclobenzaprine (FLEXERIL) 10 mg tablet Take 1 tablet by mouth two times a day as needed for muscle spasm. - COMPOUNDED PRESCRIPTION AutoPAP 5-15 cmH2O with heated humidification A medium Respironics Jolly View full face mask without chin strap Problem List As Of Date 04/02/2024 Noted Resolved Hypothyroid [E03.9] Anxiety [F41.9] 06/04/2017 ROMAN (obstructive sleep apnea) [G47.33] 10/14/2017 Bilateral carpal tunnel syndrome [G56.03] 10/27/2017 Essential hypertension [I10] 12/05/2019 Acute headache [R51.9] 03/08/2022 03/08/2022 Neck pain [M54.2] 12/28/2023 Encounter Status:Closed by SAPPHIRE DANGELO on 04/02/24 [facility] Chest PA and Lateralon 04-02 Chest PA and Lateral [facility] Imaging Services [address] [place] [address] Chest PA and Lateral MR#: [id number] Acct: [id number] Name: SHANIQUA CARLSON Rep #: [id number] : 1975 F 48 From: Devonte Caro MD PCP: Dr. Vincenzo Garcia MD Status: REG ER Study: Chest PA and Lateral Date of Exam: 04/02/24 Exam# [id number] Ordering Dr: Derian Perkins MD PROCEDURE: CHEST PA AND LATERAL REASON FOR EXAM: Cough, bronchospasm TECHNIQUE: Frontal and lateral views of the chest. COMPARISON: None. FINDINGS: The heart size is normal. The mediastinal contour is unremarkable. The lungs are clear. The bones are unremarkable. RAD/Chest PA and Lateral IMPRESSION: No radiographic evidence of acute cardiopulmonary disease Reading Location: [facility] CC: Dr. Derian Perkins MD; Dr. Vincenzo Garcia MD Suppression Crew Leader: Signed Normal [facility] Emergency Department Summary on 04-02-2024 Emergency Department Summary [facility] Medical Records Department [address] [place] [address] Emergency Department Summary 04/02/24 MR#: [id number] Acct: [id number] Name: SHANIQUA CARLSON ELLA Rep #: [id number] : 1975 48 From: Derian Perkins MD PCP: Dr. Vincenzo Garcia MD Status:REG ER Location: ED HPI HPI - URI History of Present Illness Chief Complaint: Cough Informant: patient Narrative Narrative: Healthy 48-year-old female presents with a cough that started last night. She has coughing fits that makes it feel like she cannot breathe or take of breath, which is why she presented to urgent care, and the patient states that they advised that she come to the ER without doing any testing. She does not have a history of asthma. She denies any fevers, headaches, or dyspnea when she is not coughing. She has become hoarse already from this. She denies sore throat, earache, facial pressure, GI symptoms. 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 ROS ROS ED Constitutional Constitutional ED: Denies chills or fever(s) ENT ENT ED: Reports nasal congestion and rhinorrhea; Denies ear pain or sore throat Cardiovascular Cardiovascular: Denies chest pain or palpitations Respiratory/Chest Respiratory/Chest: Reports as per HPI, cough and dyspnea Gastrointestinal Gastrointestinal: Denies abdominal pain, diarrhea, nausea or vomiting Genitourinary Genitourinary ED: Denies dysuria or hematuria Musculoskeletal Musculoskeletal: Denies myalgias or neck pain Integumentary Denies abscess or rash Neurologic Neurologic: Denies headache(s), paresthesias or weakness Endocrine Endocrinology: Denies polydipsia or polyuria [facility] Medical History (Updated 04/02/24 @ 10:[address] Derian Perkins MD) Depression Hypothyroidism Hypertension Home Medications ???Medication ???Instructions ???Recorded ???Last Taken ???Type albuterol sulfate 90 mcg/actuation 1 - 2 puff inhalation Q4H PRN AK N 04/02/24 Unknown Rx aerosol inhaler (Ventolin HFA) Wheezing ##1 Allergy/AdvReac Type Severity Reaction Status Date / Time amoxicillin AdvReac Mild Rash Verified 04/02/24 09:07 Social History household members: family Smoking Status: Never smoker alcohol intake: never substance use type: does not use EXAM Physical Exam Const Vital Signs: 04/02/24 08:56 04/02/24 09:05 04/02/24 09:23 Temperature 98.8 F Temperature Source Temporal Pulse Rate 100 89 Respiratory Rate 18 20 H Respiratory Effort Normal Respiratory Depth Normal Respiratory Pattern Normal Normal Blood Pressure 166/109 H Blood Pressure Mean 128 Pulse Ox 99 Oxygen Delivery Method Room Air Positive well nourished, well developed and obese General Appearance ED: well developed and NAD Nutritional Appearance: obese HEENT Reports moist mucous membranes HEENT Narrative: Mild hoarseness of voice no stridor normocephalic and atraumatic Throat: Negative for posterior oropharynx abnormal Eyes PERRL and EOMs intact bilaterally Neck no lymphadenopathy, supple and no meningeal signs Resp normal respiratory effort and clear to auscultation bilaterally Resp Narrative: Frequent bronchospasm when attempts to take a deep breath otherwise lungs clear. Cardio no murmurs Rate: regular rate Rhythm: regular rhythm GI non-tender Auscultation: normoactive bowel sounds Palpation: soft Back/Spine normal ROM Extremity normal to inspection and full ROM Neuro oriented x3, CN's II-XII intact bilaterally and no sensory deficits noted Sensorium / Orientation: alert Motor Exam: strength 5/5 throughout Psych mental status grossly normal Skin Lesions: no lesions Rashes: no rashes MDM MDM MDM Narrative Medical decision making narrative: Vital signs noted and unremarkable. She has bronchospasm with bronchitis, swab is positive for influenza A. Chest x-ray 2 views negative for pneumonia on my interpretation. She is doing a lot better after albuterol treatment. Given work note, prescription for albuterol inhaler, and instructions for supportive care and reasons to return she comfortable with that plan. Discharge Plan Triage Chief Complaint: Cough ED Provider: Derian Perkins Dx/Rx/DC Orders Clinical Impression: Influenzal bronchitis Instructions: ED Influenza (Adult) Prescriptions: New albuterol sulfate [Ventolin HFA] 90 mcg/actuation HFA aerosol inhaler 1 - 2 puff inhalation Q4H PRN PRN (Reason: Wheezing) Qty: 1 0RF Stand Alone Forms: ED Work / School Excuse Primary Care Provider: Vincenzo Garcai Referrals: Vincenzo Garcia MD [Primary Care Provider] - 1 Week if not improving Print Language: Portuguese Disposition Dispo (more content not included)... Normal [facility] M100.678on 04-02-2024 SARS-CoV-2 (COVID-19) Ab IA Ql Normal Reference Range = Negative FLUABV+SARS-CoV-2+RSV Pnl Resp LAWRENCE+probe GeneXpert Instrument, PCR method RESULTS CALLED TO MIKE 04/02/24 1008 Bhavana Foster. REPORT READ BACK BY SAME. Copy of report sent to Infection Control Printer [id number] 04/02/24 1008 JOSE. SARS-CoV-2 (COVID 19) Negative INFLUENZA A A Positive A INFLUENZA B Negative RSV PCR Negative INFLUENZAE A Normal [facility] Comment on above: Performed By: #### M 100.678 #### [facility] Laboratory [facility] [place], [address] CNTHERAPYon 02-08-2024 CNTHERAPY OT/PT/Speech Visit (PTWS) SHANIQUA CARLSON ([id number]) 1975 F Date Time Provider Department 02/08/24 8:00 AM BRITANY FORRESTER PTWS Date Time Provider Department [place] 02/08/2024 8:00 AM [id number], MARIAH PTWS Chel Guevara Reason for Visit: Physical Therapy [503] Primary Visit Diagnosis:Neck pain [M54.2] Allergies As of Date: 02/08/2024 Noted Allergy Reaction AMOXICILLIN 12/15/2005 4 - Hives CHLORHEXIDINE 01/11/2018 2 - Rash Comments: Chlorapep VENTOLIN (ALBUTEROL SULFATE) 12/15/2005 12 - Shortness of Breath Date Reviewed: 11/23/2023 Reviewed by: Alejandro Jerez LPN - Fully Assessed Prescriptions as of 02/08/2024 - citalopram (CELEXA) 40 mg tablet Take 1 tablet by mouth once daily. - rizatriptan (MAXALT-DETECTIVE) 10 mg disintegrating tablet Take 1 tablet (10 mg) by mouth as needed. May repeat dose after 2 hours if needed. Maximum daily dose is 30 mg per day. - metoprolol succinate ER (TOPROL XL) 50 mg 24 hr tablet Take 1 tablet by mouth once daily. - cholecalciferol, Vitamin D3, (VITAMIN D3) 1,250 mcg (50,000 unit) cap capsule Take 1 capsule by mouth one time a week. - buPROPion XL (WELLBUTRIN XL) 300 mg 24 hr tablet Take 1 tablet by mouth once daily. - meloxicam (MOBIC) 15 mg tablet Take 1 tablet by mouth once daily as needed. With food. - levothyroxine (SYNTHROID) 75 mcg tablet Take 1 tablet by mouth daily before breakfast. - cyclobenzaprine (FLEXERIL) 10 mg tablet Take 1 tablet by mouth two times a day as needed for muscle spasm. - COMPOUNDED PRESCRIPTION AutoPAP 5-15 cmH2O with heated humidification A medium [facility] full face mask without chin strap Normal [facility] CNTHERAPYon 02-01-2024 CNTHERAPY OT/PT/Speech Visit (PTWS) SHANIQUA CARLSON ([id number]) 1975 F Date Time Provider Department 02/01/24 8:00 AM BRITANY FORRESTER Date Time Provider Department Center 02/01/2024 8:00 AM [id number], MARIAH PTBRANDT Guevara Reason for Visit: Physical Therapy [503] Primary Visit Diagnosis:Neck pain [M54.2] Allergies As of Date: 02/01/2024 Noted Allergy Reaction AMOXICILLIN 12/15/2005 4 - Hives CHLORHEXIDINE 01/11/2018 2 - Rash Comments: Chlorapep VENTOLIN (ALBUTEROL SULFATE) 12/15/2005 12 - Shortness of Breath Date Reviewed: 11/23/2023 Reviewed by: Alejandro Jerez LPN - Fully Assessed Prescriptions as of 02/01/2024 - rizatriptan (MAXALT-DETECTIVE) 10 mg disintegrating tablet Take 1 tablet (10 mg) by mouth as needed. May repeat dose after 2 hours if needed. Maximum daily dose is 30 mg per day. - metoprolol succinate ER (TOPROL XL) 50 mg 24 hr tablet Take 1 tablet by mouth once daily. - cholecalciferol, Vitamin D3, (VITAMIN D3) 1,250 mcg (50,000 unit) cap capsule Take 1 capsule by mouth one time a week. - buPROPion XL (WELLBUTRIN XL) 300 mg 24 hr tablet Take 1 tablet by mouth once daily. - citalopram (CELEXA) 40 mg tablet Take 1 tablet by mouth once daily. - meloxicam (MOBIC) 15 mg tablet Take 1 tablet by mouth once daily as needed. With food. - levothyroxine (SYNTHROID) 75 mcg tablet Take 1 tablet by mouth daily before breakfast. - cyclobenzaprine (FLEXERIL) 10 mg tablet Take 1 tablet by mouth two times a day as needed for muscle spasm. - COMPOUNDED PRESCRIPTION AutoPAP 5-15 cmH2O with heated humidification A [facility] full face mask without chin strap Normal [facility] CNTHERAPYon 01-18-2024 CNTHERAPY OT/PT/Speech Visit (PTWS) SHANIQUA CARLSON ([id number]) 1975 F Date Time Provider Department 01/18/24 4:30 PM BRITANY FORRESTER PTBRANDT Date Time Provider Department [place] 01/18/2024 4:30 PM [id number], MARIAH PTWS Chel Guevara Reason for Visit: Physical Therapy [503] Primary Visit Diagnosis:Neck pain [M54.2] Allergies As of Date: 01/18/2024 Noted Allergy Reaction AMOXICILLIN 12/15/2005 4 - Hives CHLORHEXIDINE 01/11/2018 2 - Rash Comments: Chlorapep VENTOLIN (ALBUTEROL SULFATE) 12/15/2005 12 - Shortness of Breath Date Reviewed: 11/23/2023 Reviewed by: Alejandro Jerez LPN - Fully Assessed Prescriptions as of 01/18/2024 - rizatriptan (MAXALT-DETECTIVE) 10 mg disintegrating tablet Take 1 tablet (10 mg) by mouth as needed. May repeat dose after 2 hours if needed. Maximum daily dose is 30 mg per day. - metoprolol succinate ER (TOPROL XL) 50 mg 24 hr tablet Take 1 tablet by mouth once daily. - cholecalciferol, Vitamin D3, (VITAMIN D3) 1,250 mcg (50,000 unit) cap capsule Take 1 capsule by mouth one time a week. - buPROPion XL (WELLBUTRIN XL) 300 mg 24 hr tablet Take 1 tablet by mouth once daily. - citalopram (CELEXA) 40 mg tablet Take 1 tablet by mouth once daily. - meloxicam (MOBIC) 15 mg tablet Take 1 tablet by mouth once daily as needed. With food. - levothyroxine (SYNTHROID) 75 mcg tablet Take 1 tablet by mouth daily before breakfast. - cyclobenzaprine (FLEXERIL) 10 mg tablet Take 1 tablet by mouth two times a day as needed for muscle spasm. - COMPOUNDED PRESCRIPTION AutoPAP 5-15 cmH2O with heated humidification A [facility] Respironics Jolly View full face mask without chin strap Milling Machine Operator: Therapy (PT/OT/Speech/Resp) ID: [id number] 01/18/2024 4:54 PM Author: BRITANY FORRESTER Signed by BRITANY FORRESTER VEHICLE LEASING AND RENTAL MANAGER on 01/18/2024 at 4:54 PM Document text: Program_ID:[id number] Access Code: [email or web address] URL: [email or web address]/ Date: 01-18-2024 Prepared By: Merlene Jenkins Program Notes Exercises - Seated Shoulder Shrug Circles AROM Backward - 1-2 x daily - 7 x weekly - 1-2 sets - 10 reps - Seated Gentle Upper Trapezius Stretch - 2 x daily - 7 x weekly - sets - 3-5 reps - Gentle Levator Scapulae Stretch - 2 x daily - 7 x weekly - sets - 3-5 reps - Seated Scapular Retraction - 2 x daily - 7 x weekly - 2 sets - 10 reps - Seated Passive Cervical Retraction - 2 x daily - 7 x weekly - 2 sets - 10 reps -- Normal [facility] THERAPY NTon 01-18-2024 THERAPY NT HNO ID: [id number] Author: BRITANY FORRESTER PTA Service: ? Author Type: Automobile Rental Clerk Type: Therapy (PT/OT/Speech/Resp) Filed: 01/18/2024 16:54 Note Text: Program_ID:[id number] Access Code: [email or web address] URL: [email or web address] Date: 01-18-2024 Prepared By: Merlene Jenkins Program Notes Exercises - Seated Shoulder Shrug Circles AROM Backward - 1-2 x daily - 7 x weekly - 1-2 sets - 10 reps - Seated Gentle Upper Trapezius Stretch - 2 x daily - 7 x weekly - sets - 3-5 reps - Gentle Levator Scapulae Stretch - 2 x daily - 7 x weekly - sets - 3-5 reps - Seated Scapular Retraction - 2 x daily - 7 x weekly - 2 sets - 10 reps - Seated Passive Cervical Retraction - 2 x daily - 7 x weekly - 2 sets - 10 reps Normal [facility] CNTHERAPYon 12-28-2023 CNTHERAPY OT/PT/Speech Visit (PTWS) SHANIQUA CARLSON ([id number]) 1975 F Date Time Provider Department 12/28/23 5:15 PM MERLENE JENKINS PTWS Date Time Provider Department Center 12/28/2023 5:15 PM [id number] JENKINS PTWS [facility] Reason for Visit: PT Eval [747] Primary Visit Diagnosis:Neck pain [M54.2] Allergies As of Date: 12/28/2023 Noted Allergy Reaction AMOXICILLIN 12/15/2005 4 - Hives CHLORHEXIDINE 01/11/2018 2 - Rash Comments: Chlorapep VENTOLIN (ALBUTEROL SULFATE) 12/15/2005 12 - Shortness of Breath Date Reviewed: 11/23/2023 Reviewed by: Alejandro Jerez LPN - Fully Assessed Prescriptions as of 12/28/2023 - rizatriptan (MAXALT-DETECTIVE) 10 mg disintegrating tablet Take 1 tablet (10 mg) by mouth as needed. May repeat dose after 2 hours if needed. Maximum daily dose is 30 mg per day. - metoprolol succinate ER (TOPROL XL) 50 mg 24 hr tablet Take 1 tablet by mouth once daily. - cholecalciferol, Vitamin D3, (VITAMIN D3) 1,250 mcg (50,000 unit) cap capsule Take 1 capsule by mouth one time a week. - buPROPion XL (WELLBUTRIN XL) 300 mg 24 hr tablet Take 1 tablet by mouth once daily. - citalopram (CELEXA) 40 mg tablet Take 1 tablet by mouth once daily. - meloxicam (MOBIC) 15 mg tablet Take 1 tablet by mouth once daily as needed. With food. - levothyroxine (SYNTHROID) 75 mcg tablet Take 1 tablet by mouth daily before breakfast. - cyclobenzaprine (FLEXERIL) 10 mg tablet Take 1 tablet by mouth two times a day as needed for muscle spasm. 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: Therapy (PT/OT/Speech/Resp) ID: [id number] 12/28/2023 5:59 PM Author: MERLENE JENKINS Signed by MERLENE JENKINS PT on 12/28/2023 at 5:59 PM Document text: Program_ID:[id number] Access Code: [email or web address] URL: [email or web address]/ Date: 12-28-2023 Prepared By: Merlene Jenkins Program Notes Exercises - Seated Shoulder Shrug Circles AROM Backward - 1-2 x daily - 7 x weekly - 1-2 sets - 10 reps - Seated Gentle Upper Trapezius Stretch - 2 x daily - 7 x weekly - sets - 3-5 reps - Gentle Levator Scapulae Stretch - 2 x daily - 7 x weekly - sets - 3-5 reps -- Normal [facility] THERAPY NTon 12-28-2023 THERAPY NT HNO ID: [id number] Author: MERLENE JENKINS PT Service: ? Author Type: Physical Therapist Type: Therapy (PT/OT/Speech/Resp) Filed: 12/28/2023 17:59 Note Text: Program_ID:[id number] Access Code: [email or web address] URL: [email or web address] Date: 12-28-2023 Prepared By: Merlene Jenkins Program Notes Exercises - Seated Shoulder Shrug Circles AROM Backward - 1-2 x daily - 7 x weekly - 1-2 sets - 10 reps - Seated Gentle Upper Trapezius Stretch - 2 x daily - 7 x weekly - sets - 3-5 reps - Gentle Levator Scapulae Stretch - 2 x daily - 7 x weekly - sets - 3-5 reps Normal [facility] CNPNon 12-22-2023 CNPN Telephone (FAMPWS) SHANIQUA CARLSON ([id number]) 1975 F Date Time Provider Department 12/22[facility] visit today, we recorded the following information about you: Stefan Chu MD 12/22/2023 9:55 PM Signed Patient's 6 month f/u appt from yesterday needs rescheduled. Johan Hardy RN 12/23/2023 10:24 AM Signed Left detailed vm on identified vm for pt to return call to re-schedule appt with Dr. Garcia for 6 mth f/u. Provider was out sick yesterday. Allergies As of Date: 12/22/2023 Noted Allergy Reaction AMOXICILLIN 12/15/2005 4 - Hives CHLORHEXIDINE 01/11/2018 2 - Rash Comments: Chlorapep VENTOLIN (ALBUTEROL SULFATE) 12/15/2005 12 - Shortness of Breath Date Reviewed: 11/23/2023 Reviewed by: Alejandro Jerez LPN - Fully Assessed Reason for Visit: Results [95] Appointment [186] Prescriptions as of 12/23/2023 - rizatriptan (MAXALT-DETECTIVE) 10 mg disintegrating tablet Take 1 tablet (10 mg) by mouth as needed. May repeat dose after 2 hours if needed. Maximum daily dose is 30 mg per day. - metoprolol succinate ER (TOPROL XL) 50 mg 24 hr tablet Take 1 tablet by mouth once daily. - cholecalciferol, Vitamin D3, (VITAMIN D3) 1,250 mcg (50,000 unit) cap capsule Take 1 capsule by mouth one time a week. - buPROPion XL (WELLBUTRIN XL) 300 mg 24 hr tablet Take 1 tablet by mouth once daily. - citalopram (CELEXA) 40 mg tablet Take 1 tablet by mouth once daily. - meloxicam (MOBIC) 15 mg tablet Take 1 tablet by mouth once daily as needed. With food. - levothyroxine (SYNTHROID) 75 mcg tablet Take 1 tablet by mouth daily before breakfast. - cyclobenzaprine (FLEXERIL) 10 mg tablet Take 1 tablet by mouth two times a day as needed for muscle spasm. - COMPOUNDED PRESCRIPTION AutoPAP 5-15 cmH2O with heated humidification A medium Respironics Jolly View full face mask without chin strap Problem List As Of Date 12/22/2023 Noted Resolved Hypothyroid [E03.9] Anxiety [F41.9] 06/04/2017 ROMAN (obstructive sleep apnea) [G47.33] 10/14/2017 Bilateral carpal tunnel syndrome [G56.03] 10/27/2017 Essential hypertension [I10] 12/05/2019 Acute headache [R51.9] 03/08/2022 03/08/2022 Encounter Status:Closed by Johan HARDY on 12/23/23 Normal [facility] 25(OH)D3 Alphonse-marcelino 11-11- 2024 25-hydroxyvitamin D3 [Mass/Vol] 63.7 ng/mL Normal 31.0-80.0 [facility] Comment on above: Order Comment: Speci men Type: BLOOD SPECIMENOrdering Facility: [facility] Address: [address] [place] [address] Result Comment: Clas sification of 25 [place] Vitamin D status: Deficiency/Insufficiency: < or = 30 ng/ml. Sufficiency/Optimal Levels: 31-80 ng/mL Toxicity: > 100 ng/mL. Test performed by chemiluminescent immunoassay. Performed By: #### 1 989-3 ####[facility] LABCLIA [id number] [place] [address] [place] CBC W Auto Differential pane l (Bld)on 12-21-2023 Basophils (Bld) [#/Vol] 0.10 10*3/uL Normal <0.11 [facility] Comment on above: Order Comment: Speci men Type: BLOOD SPECIMENOrdering Facility: [facility] Address: [address] [place] [address] Performed By: #### 5 7021-8 ####[facility] LABCLIA [id number] [place] [address] [place] Basophils/100 WBC (Bld) 1.5 % Normal [facility] Comment on above: Order Comment: Speci men Type: BLOOD SPECIMENOrdering Facility: [facility] Address: [address] [place] [address] Performed By: #### 5 7021-8 ####[facility] LABCLIA [id number] [place] [address] [place] Differential cell count method Nom (Bld) Auto Normal [facility] Comment on above: Order Comment: Speci men Type: BLOOD SPECIMENOrdering Facility: [facility] Address: [address] [place] [address] Performed By: #### 5 7021-8 ####[facility] LABCLIA [id number] [place] [address] [place] Eosinophils (Bld) [#/Vol] 0.15 10*3/uL Normal <0.46 [facility] Comment on above: Order Comment: Speci men Type: BLOOD SPECIMENOrdering Facility: [facility] Address: [address] [place] [address] Performed By: #### 5 7021-8 ####[facility] LABCLIA [id number] [place] [address] [place] Eosinophils/100 WBC (Bld) 2.3 % Normal [facility] Comment on above: Order Comment: Speci men Type: BLOOD SPECIMENOrdering Facility: [facility] Address: [address] [place] [address] Performed By: #### 5 7021-8 ####[facility] LABCLIA [id number] [place] [address] [place] Erythrocyte distribution width (RBC) [Ratio] 12.5 % Normal 11.5-15.0 [facility] Comment on above: Order Comment: Speci men Type: BLOOD SPECIMENOrdering Facility: [facility] Address: [address] [place] [address] Performed By: #### 5 7021-8 ####[facility] LABCLIA [id number] [place] [address] [place] Hematocrit (Bld) [Volume fraction] 41.6 % Normal 36.0-46.0 [facility] Comment on above: Order Comment: Speci men Type: BLOOD SPECIMENOrdering Facility: [facility] Address: [address] [place] [address] Performed By: #### 5 7021-8 ####[facility] LABCLIA [id number] [place] [address] [place] Hemoglobin (Bld) [Mass/Vol] 13.5 g/dL Normal 11.5-15.5 [facility] Comment on above: Order Comment: Speci men Type: BLOOD SPECIMENOrdering Facility: [facility] Address: [address] [place] [address] Performed By: #### 5 7021-8 ####[facility] LABCLIA [id number] [place] [address] [place] Immature granulocytes (Bld) [#/Vol] 10*3/uL Normal <0.10 [facility] Comment on above: Order Comment: Speci men Type: BLOOD SPECIMENOrdering Facility: [facility] Address: [address] [place] [address] Performed By: #### 5 7021-8 ####[facility] LABCLIA [id number] [place] [address] [place] Immature granulocytes/100 WBC (Bld) 0.3 % Normal [facility] Comment on above: Order Comment: Speci men Type: BLOOD SPECIMENOrdering Facility: [facility] Address: [address] [place] [address] Performed By: #### 5 7021-8 ####[facility] LABCLIA [id number] [place] [address] [place] Lymphocytes (Bld) [#/Vol] 2.48 10*3/uL Normal 1.00-4.00 [facility] Comment on above: Order Comment: Speci men Type: BLOOD SPECIMENOrdering Facility: [facility] Address: [address] [place] [address] Performed By: #### 5 7021-8 ####[facility] LABCLIA [id number] [place] [address] [place] Lymphocytes/100 WBC (Bld) 38.1 % Normal [facility] Comment on above: Order Comment: Speci men Type: BLOOD SPECIMENOrdering Facility: [facility] Address: [address] [place] [address] Performed By: #### 5 7021-8 ####[facility] LABCLIA [id number] [place] [address] [place] MCH (RBC) [Entitic mass] 28.3 pg Normal 26.0-34.0 [facility] Comment on above: Order Comment: Speci men Type: BLOOD SPECIMENOrdering Facility: [facility] Address: [address] [place] [address] Performed By: #### 5 7021-8 ####[facility] LABCLIA [id number] [place] [address] [place] MCHC (RBC) [Mass/Vol] 32.5 g/dL Normal 30.5-36.0 [facility] Comment on above: Order Comment: Speci men Type: BLOOD SPECIMENOrdering Facility: [facility] Address: [address] [place] [address] Performed By: #### 5 7021-8 ####[facility] LABCLIA [id number] [place] [address] [place] MCV (RBC) [Entitic vol] 87.2 fL Normal 80.0-100.0 [facility] Comment on above: Order Comment: Speci men Type: BLOOD SPECIMENOrdering Facility: [facility] Address: [address] [place] [address] Performed By: #### 5 7021-8 ####[facility] LABIA [id number] [place] [address] [place] Monocytes (Bld) [#/Vol] 0.38 10*3/uL Normal <0.87 [facility] Comment on above: Order Comment: Speci men Type: BLOOD SPECIMENOrdering Facility: [facility] Address: [address] [place] [address] Performed By: #### 5 7021-8 ####[facility] LABCLIA [id number] [place] [address] [place] Monocytes/100 WBC (Bld) 5.8 % Normal [facility] Comment on above: Order Comment: Speci men Type: BLOOD SPECIMENOrdering Facility: [facility] Address: [address] [place] [address] Performed By: #### 5 7021-8 ####[facility] LABCLIA [id number] [place] [address] [place] Neutrophils (Bld) [#/Vol] 3.38 10*3/uL Normal 1.45-7.50 [facility] Comment on above: Order Comment: Speci men Type: BLOOD SPECIMENOrdering Facility: [facility] Address: [address] [place] [address] Performed By: #### 5 7021-8 ####[facility] LABCLIA [id number] [place] [address] [place] Neutrophils/100 WBC (Bld) 52.0 % Normal [facility] Comment on above: Order Comment: Speci men Type: BLOOD SPECIMENOrdering Facility: [facility] Address: [address] [place] [address] Performed By: #### 5 7021-8 ####[facility] LABCLIA [id number] [place] [address] [place] Nucleated RBC (Bld) [#/Vol] 10*3/uL Normal <0.01 [facility] Comment on above: Order Comment: Speci men Type: BLOOD SPECIMENOrdering Facility: [facility] Address: [address] [place] [address] Performed By: #### 5 7021-8 ####[facility] LABCLIA [id number] [place] [address] [place] Nucleated RBC/100 WBC (Bld) [Ratio] 0.0 /100 WBC Normal [facility] Comment on above: Order Comment: Speci men Type: BLOOD SPECIMENOrdering Facility: [facility] Address: [address] [place] [address] Performed By: #### 5 7021-8 ####[facility] LABCLIA [id number] [place], [place] [address] [place] Platelet mean volume (Bld) [Entitic vol] 11.2 fL Normal 9.0-12.7 [facility] Comment on above: Order Comment: Speci men Type: BLOOD SPECIMENOrdering Facility: [facility] Address: [address] [place] [address] Performed By: #### 5 7021-8 ####[facility] LABCLIA [id number] [place] [address] [place] Platelets (Bld) [#/Vol] 278 10*3/uL Normal 150-400 [facility] Comment on above: Order Comment: Speci men Type: BLOOD SPECIMENOrdering Facility: [facility] Address: [address] [place] [address] Performed By: #### 5 7021-8 ####[facility] LABCLIA [id number] [place] [address] [place] RBC (Bld) [#/Vol] 4.77 10*6/uL Normal 3.90-5.20 [facility] Comment on above: Order Comment: Speci men Type: BLOOD SPECIMENOrdering Facility: [facility] Address: [address] [place] [address] Performed By: #### 5 7021-8 ####[facility] LABCLIA [id number] [place] [address] [place] WBC (Bld) [#/Vol] 6.51 10*3/uL Normal 3.70-11.00 [facility] Comment on above: Order Comment: Speci men Type: BLOOD SPECIMENOrdering Facility: [facility] Address: [address] [place] [address] Performed By: #### 5 7021-8 ####[facility] LABCLIA [id number] [place] [address] [place] Comprehensive metabolic 2000 panelon 12-21-2023 Albumin [Mass/Vol] 4.5 g/dL Normal 3.9-4.9 [facility] Comment on above: Order Comment: Speci men Type: BLOOD SPECIMENOrdering Facility: [facility] Address: [address] [place] [address] Performed By: #### 2 4331-1, 3015-3, ####[facility] LABCLIA [id number] [facility] [place] [address] [place] ALP [Catalytic activity/Vol] 49 U/L Normal 34-123 [facility] Comment on above: Order Comment: Speci men Type: BLOOD SPECIMENOrdering Facility: [facility] Address: [address] [place] [address] Performed By: #### 2 4331-1, 3, ####[facility] LABCLIA [id number] [place] [address] [place] ALT [Catalytic activity/Vol] 27 U/L Normal 7-38 [facility] Comment on above: Order Comment: Speci men Type: BLOOD SPECIMENOrdering Facility: [facility] Address: [address] [place] [address] Performed By: #### 2 4331-1, 3, ####[facility] LABCLIA [id number] [place] [id number] [place] Anion gap [Moles/Vol] 13 mmol/L Normal 8-15 [facility] Comment on above: Order Comment: Speci men Type: BLOOD SPECIMENOrdering Facility: [facility] Address: [address] [place] [address] Performed By: #### 2 4331-1, 3, ####[facility] LABCLIA [id number] [facility] [address] [address] [place] AST [Catalytic activity/Vol] 20 U/L Normal 13-35 [facility] Comment on above: Order Comment: Speci men Type: BLOOD SPECIMENOrdering Facility: [facility] Address: [address] [place] [address] Performed By: #### 2 4331-1, 3, ####[facility] LABCLIA [id number] [address] [address] [place] Bilirubin [Mass/Vol] 0.2 mg/dL Normal 0.2-1.3 [facility] Comment on above: Order Comment: Speci men Type: BLOOD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 Father Rheumatoid Stroke Maternal Grandmother Stroke Maternal Grandfather Social History Tobacco Use Smoking status: Never Smokeless tobacco: Never Vaping Use Vaping Use: Never used Substance Use Topics Alcohol use: No Drug use: No EXAM: BP 150/92 (BP Site: Right Arm, BP Cuff Size: Large Adult) Pulse 80 LMP 06/03/2019 PHYSICAL EXAM: General Appearance: Well appearing, alert, in no acute distress, well-hydrated, well nourished.. Skin: Skin color, texture, turgor normal, no suspicious rashes or lesions. Head: Normocephalic, no masses, lesions, tenderness or abnormalities. Eyes: Anicteric sclera. Pupils are equally round and reactive to light. Extraocular movements are intact. . Ears: External ears normal, canals clear. Normal TMs bilaterally. Oropharynx: Lips, mucosa, and tongue normal, teeth and gums normal, oropharynx normal. Neck: Supple, no adenopathy; thyroid symmetric, normal size, no bruits. Small, firm, raised epidermal cyst on R side of neck. Lungs: Lungs clear to auscultation. No wheezing, rhonchi, rales.. Heart: RRR without murmur, gallop, or rubs. No ectopy. Extremities: No deformities, edema, skin discoloration, clubbing or cyanosis. Good capillary refill. . Neurologic: Gait normal. ASSESSMENT/PLAN: 1. Epidermal inclusion cyst - ICD9: 706.2, ICD10: L72.0 (primary diagnosis) - CONSULT TO DERMATOLOGY - We will fax the referral to [facility] 2. Epistaxis - ICD9: 784.7, ICD10: R04.0 - CONSULT TO ENT - We will fax the referral to [facility] Discussed treatment plan and patient voices understanding. Patient's questions answered appropriately. Medications and potential side effects were discussed and patient voices understanding. Return to the office as scheduled or as needed for worsening/no improvement. Jacqueline Serrato APRN.STONE CRUSHER OPERATOR The patient indicates understanding of these issues and agrees with the plan. Jacqueline Serrato APRN.CNP 08/14/2023 8:20 AM Signed Schedule w/ ent. (We can fx referral to [facility]) Schedule w/ derm (We can fax referral to [facility]). Allergies As of Date: 08/14/2023 Noted Allergy Reaction AMOXICILLIN 12/15/2005 4 (more content not included)... Normal [facility] XR Cervical spine AP and Lat eral and obliqueon 02-04-2023 IMPRESSION: MILD SPONDYLOSIS Suppression Crew Leader: MAHESH Transcribe Date/Time: Feb 04 2023 3:04P Dictated by : MARTÍN MCCABE MD This examination was interpreted and the report reviewed and electronically signed by: MARTÍN MCCABE MD on Feb 04 2023 3:05PM [facility] DIVISION OF RADIOLOGY * * *Final Report* * * DATE OF EXAM: Jan 30 2023 9:09AM [id number] [id number] - XR CERVICAL 4V AP/LAT/OBL / PROCEDURE REASON: Neck pain * * * * Physician Interpretation * * * * Examination: XR CERVICAL 4V AP/LAT/OBL History: Neck pain Technique: XR CERVICAL 4V AP/LAT/OBL Comparison: None RESULT: Mild spondylosis. No fracture or prevertebral swelling. Disc spaces are maintained. Neural foramina are widely patent. Normal alignment. DIVISION OF RADIOLOGY Provider, Mariella Alex Morataya - 02/04/2023 * * *Final Report* * * DATE OF EXAM: Jan 30 2023 9:09AM WOX [id number] - XR CERVICAL 4V AP/LAT/OBL / PROCEDURE REASON: Neck pain * * * * Physician Interpretation * * * * Examination: XR CERVICAL 4V AP/LAT/OBL History: Neck pain Technique: XR CERVICAL 4V AP/LAT/OBL Comparison: None RESULT: Mild spondylosis. No fracture or prevertebral swelling. Disc spaces are maintained. Neural foramina are widely patent. Normal alignment. IMPRESSION IMPRESSION: MILD SPONDYLOSIS Suppression Crew Leader: MAHESH Transcribe Date/Time: Feb 04 2023 3:04P Dictated by : MARTÍN MCCABE MD This examination was interpreted and the report reviewed and electronically signed by: MARTÍN MCCABE MD on Feb 04 2023 3:05PM EST [facility] XR Cervical spine AP and Lat eral and obliqueOrdered By: [facility] Provider on 02-04-2023 [facility] XR Cervical spine AP and Lat eral and obliqueon 01-30-2023 Radiology Study observation (narrative) [facility] DIAG W DARION LTon 023 [facility] WADE SCREENINGon 03-14-2022 [facility] Vital Signs Date Time Vital Sign Value Performing Clinician Faci lity 04-04-2024 14:09-0500 Diastolic blood pressure 92 mm[Hg] Jacqueline Serrato APRN.STONE CRUSHER OPERATOR Work Phone: [facility] 04-04-2024 14:09-0500 Heart rate 105 /min Jacqueline Serrato APRN.STONE CRUSHER OPERATOR Work Phone: [facility] 04-04-2024 14:09-0500 Respiratory rate 16 /min Jacqueline Serrato APRN.STONE CRUSHER OPERATOR Work Phone: [facility] 04-04-2024 14:09-0500 SaO2% (BldA) [Mass fraction] 96 % Jacqueline Serrato APRN.STONE CRUSHER OPERATOR Work Phone: [facility] 04-04-2024 14:09-0500 Systolic blood pressure 136 mm[Hg] Jacqueline Serrato APRN.STONE CRUSHER OPERATOR Work Phone: [facility] 04-02-2024 08:46-0500 Body mass index (BMI) [Ratio] 43.8 kg/m2 Sapphire Dangelo APRN.STONE CRUSHER OPERATOR Work Phone: [facility] 04-02-2024 08:46-0500 Body temperature 100.2 [degF] Sapphire Dangelo APRN.STONE CRUSHER OPERATOR Work Phone: [facility] 04-02-2024 08:46-0500 Body weight 119.4 kg Sapphire Dangelo APRN.STONE CRUSHER OPERATOR Work Phone: [facility] 04-02-2024 08:46-0500 Diastolic blood pressure 100 mm[Hg] Sapphire Dangelo INTERNAL MEDICINE VETERINARY TECHNICIAN.STONE CRUSHER OPERATOR Work Phone: [facility] 04-02-2024 08:46-0500 Heart rate 85 /min Sapphire Dangelo INTERNAL MEDICINE VETERINARY TECHNICIAN.STONE CRUSHER OPERATOR Work Phone: [facility] 04-02-2024 08:46-0500 Respiratory rate 22 /min Sapphire Dangelo INTERNAL MEDICINE VETERINARY TECHNICIAN.STONE CRUSHER OPERATOR Work Phone: [facility] 04-02-2024 08:46-0500 SaO2% (BldA) [Mass fraction] 97 % Sapphire Dangelo INTERNAL MEDICINE VETERINARY TECHNICIAN.STONE CRUSHER OPERATOR Work Phone: [facility] 04-02-2024 08:46-0500 Systolic blood pressure 140 mm[Hg] Sapphire Dangelo INTERNAL MEDICINE VETERINARY TECHNICIAN.STONE CRUSHER OPERATOR Work Phone: [facility] 12-28-2023 17:00-0500 Diastolic blood pressure 96 mm[Hg] Merlene Lemon PT [facility] 12-28-2023 17:00-0500 Systolic blood pressure 140 mm[Hg] Merlene Lemon PT [facility] 11-23-2023 17:38-0400 Diastolic blood pressure 78 mm[Hg] Jacqueline Haagen INTERNAL MEDICINE VETERINARY TECHNICIAN.STONE CRUSHER OPERATOR Work Phone: [facility] 11-23-2023 17:38-0400 Heart rate 81 /min Jacqueline Haagen INTERNAL MEDICINE VETERINARY TECHNICIAN.STONE CRUSHER OPERATOR Work Phone: [facility] 11-23-2023 17:38-0400 Respiratory rate 16 /min Jacqueline Haagen INTERNAL MEDICINE VETERINARY TECHNICIAN.STONE CRUSHER OPERATOR Work Phone: [facility] 11-23-2023 17:38-0400 SaO2% (BldA) [Mass fraction] 97 % Jacqueline Haagen INTERNAL MEDICINE VETERINARY TECHNICIAN.STONE CRUSHER OPERATOR Work Phone: [facility] 11-23-2023 17:38-0400 Systolic blood pressure 130 mm[Hg] Jacqueline Haagen INTERNAL MEDICINE VETERINARY TECHNICIAN.STONE CRUSHER OPERATOR Work Phone: [facility] 11-02-2023 19:18-0400 Body mass index (BMI) [Ratio] 43.77 kg/m2 Vincenzo Garcia MD Work Phone: [facility] 11-02-2023 19:18-0400 Body weight 119.3 kg Vincenzo Garcia MD Work Phone: [facility] 11-02-2023 19:18-0400 Diastolic blood pressure 92 mm[Hg] Vincenzo Garcia MD Work Phone: [facility] 11-02-2023 19:18-0400 Heart rate 90 /min Vincenzo Garcia MD Work Phone: [facility] 11-02-2023 19:18-0400 SaO2% (BldA) [Mass fraction] 98 % Vincenzo Garcia MD Work Phone: [facility] 11-02-2023 19:18-0400 Systolic blood pressure 134 mm[Hg] Vincenzo Garcia MD Work Phone: [facility] 08-14-2023 08:25-0400 Diastolic blood pressure 92 mm[Hg] Jacqueline Haagen INTERNAL MEDICINE VETERINARY TECHNICIAN.STONE CRUSHER OPERATOR Work Phone: [facility] 08-14-2023 08:25-0400 Systolic blood pressure 150 mm[Hg] Jacqueline Haagen INTERNAL MEDICINE VETERINARY TECHNICIAN.STONE CRUSHER OPERATOR Work Phone: [facility] 08-14-2023 08:24-0400 Heart rate 80 /min Jacqueline Haagen INTERNAL MEDICINE VETERINARY TECHNICIAN.STONE CRUSHER OPERATOR Work Phone: [facility] 06-20-2023 09:06-0400 Body mass index (BMI) [Ratio] 41.27 kg/m2 Vincenzo Garcia MD Work Phone: [facility] 06-20-2023 09:06-0400 Body weight 112.49 kg Vincenzo Garcia MD Work Phone: [facility] 06-20-2023 09:06-0400 Diastolic blood pressure 80 mm[Hg] Vincenzo Garcia MD Work Phone: [facility] 06-20-2023 09:06-0400 Heart rate 93 /min Vincenzo Garcia MD Work Phone: [facility] 06-20-2023 09:06-0400 Respiratory rate 16 /min Vincenzo Garcia MD Work Phone: [facility] 06-20-2023 09:06-0400 SaO2% (BldA) [Mass fraction] 99 % Vincenzo Garcia MD Work Phone: [facility] 06-20-2023 09:06-0400 Systolic blood pressure 122 mm[Hg] Vincenzo Garcia MD Work Phone: [facility] 05-18-2023 18:40-0400 Body weight 114.31 kg Vincenzo Garcia MD Work Phone: [facility] 05-18-2023 18:40-0400 Diastolic blood pressure 88 mm[Hg] Vincenzo Garcia MD Work Phone: [facility] 05-18-2023 18:40-0400 Heart rate 84 /min Vincenzo Garcia MD Work Phone: [facility] 05-18-2023 18:40-0400 SaO2% (BldA) [Mass fraction] 99 % Vincenzo Garcia MD Work Phone: [facility] 05-18-2023 18:40-0400 Systolic blood pressure 126 mm[Hg] Vincenzo Garcia MD Work Phone: [facility] 03-16-2023 08:06-0500 Body temperature 98.01 [degF] Sapphire Dangelo APRN.STONE CRUSHER OPERATOR Work Phone: [facility] 03-16-2023 08:06-0500 Body weight 114.76 kg Sapphire Dangelo APRN.STONE CRUSHER OPERATOR Work Phone: [facility] 03-16-2023 08:06-0500 Diastolic blood pressure 80 mm[Hg] Spaphire Dangelo APRN.STONE CRUSHER OPERATOR Work Phone: [facility] 03-16-2023 08:06-0500 Heart rate 98 /min Sapphire Dangelo APRN.STONE CRUSHER OPERATOR Work Phone: [facility] 03-16-2023 08:06-0500 Respiratory rate 16 /min Sapphire Dangelo APRN.STONE CRUSHER OPERATOR Work Phone: [facility] 03-16-2023 08:06-0500 SaO2% (BldA) [Mass fraction] 97 % Sapphire Dangelo APRN.STONE CRUSHER OPERATOR Work Phone: [facility] 03-16-2023 08:06-0500 Systolic blood pressure 122 mm[Hg] Sapphire Dangelo APRN.STONE CRUSHER OPERATOR Work Phone: [facility] 03-08-2022 08:22-0500 Diastolic blood pressure 86 mm[Hg] Vincenzo Garcia MD Work Phone: [facility] 03-08-2022 08:22-0500 Systolic blood pressure 138 mm[Hg] Vincenzo Garcia MD Work Phone: [facility] 03-08-2022 08:01-0500 Body height 165.1 cm Vincenzo Garcia MD Work Phone: [facility] 03-08-2022 08:01-0500 Body weight 112.95 kg Vincezno Garcia MD Work Phone: [facility] 03-08-2022 08:01-0500 Heart rate 82 /min Vincenzo Garcia MD Work Phone: [facility] 03-08-2022 08:01-0500 SaO2% (BldA) [Mass fraction] 97 % Vincenzo Garcia MD Work Phone: [facility] 08-02-2021 13:39-0400 Body height 165.1 cm Elizabet Swanson MD Work Phone: [facility] 08-02-2021 13:39-0400 Body temperature 97.3 [degF] Elizabet Swanson MD Work Phone: [facility] 08-02-2021 13:39-0400 Body weight 114.31 kg Elizabet Swanson MD Work Phone: [facility] 08-02-2021 13:39-0400 Diastolic blood pressure 90 mm[Hg] Elizabet Swanson MD Work Phone: [facility] 08-02-2021 13:39-0400 Heart rate 98 /min Elizabet Swanson MD Work Phone: [facility] 08-02-2021 13:39-0400 SaO2% (BldA) [Mass fraction] 96 % Elizabet Swanson MD Work Phone: [facility] 08-02-2021 13:39-0400 Systolic blood pressure 130 mm[Hg] Elizabet Swanson MD Work Phone: [facility] Encounters Encounter Date Encounter Type Care Provider Facility Start: 06-14-2024 End: 07-15-2024 ambulatory Vincenzo Garcia MD Work Phone: [facility] Start: 04-04-2024 End: 04-04-2024 Office outpatient visit 25 minutes Jacqueline Serrato APRN.STONE CRUSHER OPERATOR Work Phone: [facility] Comment on above: Bronchitis (Primary Dx); URI, acute; Influenza A Start: 04-04-2024 End: 04-04-2024 ambulatory [facility] Facility:[facility] Start: 04-02-2024 End: 04-02-2024 Emergency department patient visit [facility] Facility:[facility] Start: 04-02-2024 End: 04-02-2024 ambulatory [facility] Facility:[facility] Start: 04-02-2024 End: 04-02-2024 Patient encounter procedure Sapphire Dangelo APRN.STONE CRUSHER OPERATOR Work Phone: [facility] Comment on above: SOB (shortness of br eath) (Primary Dx) Start: 03-31-2024 End: 04-01-2024 Refill Vincenzo Garcia MD Work Phone: [facility] Comment on above: Refill Request Start: 02-08-2024 End: 02-08-2024 ambulatory Britany Forrester VEHICLE LEASING AND RENTAL MANAGER Work Phone: [facility] Comment on above: Neck pain (Primary D x) Start: 02-04-2024 End: 02-05-2024 Refill Jacqueline Serrato APRN.STONE CRUSHER OPERATOR Work Phone: [facility] Comment on above: Refill Request Start: 02-01-2024 End: 02-01-2024 ambulatory Britany Forrester VEHICLE LEASING AND RENTAL MANAGER Work Phone: [facility] Comment on above: Neck pain (Primary D x) Start: 01-18-2024 End: 01-18-2024 ambulatory Britany Forrester VEHICLE LEASING AND RENTAL MANAGER Work Phone: [facility] Comment on above: Neck pain (Primary D x) Start: 12-28-2023 End: 12-28-2023 ambulatory Merlene Jenkins PT [facility] Comment on above: Neck pain (Primary D x) Start: 12-22-2023 End: 12-23-2023 Telephone encounter Stefan Chu MD Work Phone: [facility] Comment on above: Results; Appointment Start: 12-21-2023 End: 12-21-2023 [facility] Start: 11-23-2023 End: 11-23-2023 Office outpatient visit 25 minutes Jacqueline Serrato APRN.STONE CRUSHER OPERATOR Work Phone: [facility] Comment on above: Headache, unspecifie d headache type (Primary Dx); Neck pain Start: 11-23-2023 End: 11-23-2023 [facility] Start: 11-02-2023 End: 11-02-2023 Subsequent hospital visit by physician [facility] Work Phone: Radiology Comment on above: Neck pain [M54.2] Start: 11-02-2023 End: 11-02-2023 Patient encounter procedure Vincenzo Garcia MD Work Phone: [facility] Comment on above: Headache, unspecifie d headache type (Primary Dx); Neck pain; Essential hypertension Start: 11-02-2023 End: 11-02-2023 ambulatory [facility] Facility:[facility] Start: 10-10-2023 End: 10-13-2023 Refill Jacqueline Serrato APRN.STONE CRUSHER OPERATOR Work Phone: [facility] Comment on above: Refill Request Start: 08-14-2023 End: 08-14-2023 ambulatory [facility] GARCIA Facility:[facility] Start: 08-14-2023 End: 08-14-2023 Office outpatient visit 15 minutes Jacuqeline Serrato APRN.STONE CRUSHER OPERATOR Work Phone: [facility] Comment on above: Epidermal inclusion cyst (Primary Dx); Epistaxis Start: 06-20-2023 End: 06-20-2023 Patient encounter procedure Vincenzo Garcia MD Work Phone: [facility] Comment on above: Anxiety (Primary Dx) ; Essential hypertension; ROMAN (obstructive sleep apnea); Hypothyroidism, unspecified type; Vitamin D deficiency; Epistaxis Start: 05-18-2023 End: 05-18-2023 Patient encounter procedure Vincenzo Garcia MD Work Phone: [facility] Comment on above: Anxiety with depress ion (Primary Dx); Essential hypertension; ROMAN (obstructive sleep apnea); Hypothyroidism, unspecified type Start: 05-11-2023 Documentation procedure Mammog demond Coordinator [facility] Start: 05-11-2023 Letter encounter Mammography Coordinator [facility] Department Start: 05-11-2023 Telephone encounter Jacqueline sales APRN.STONE CRUSHER OPERATOR Work Phone: [facility] [place] Comment on above: Results Start: 05-02-2023 ambulatory Jacqueline Serrato APRN.CNP Work Phone: [facility] [place] Comment on above: Nose bleeds Start: 04-22-2023 ambulatory Vincenzo Garcia MD Work Phone: Internal Medicine [facility] [place] Start: 03-16-2023 End: 03-16-2023 Patient encounter procedure Sapphire Dangelo APRN.STONE CRUSHER OPERATOR Work Phone: [facility] Comment on above: URI, acute (Primary Dx); Acute cough Start: 01-30-2023 End: 01-30-2023 Subsequent hospital visit by physician [facility] [place] Work Phone: Radiology Comment on above: Neck pain [M54.2] Start: 04-16-2022 End: 04-16-2022 Subsequent hospital visit by physician Diagnostic Mammo [facility] Mammogram Start: 03-19-2022 End: 03-19-2022 Patient encounter procedure Jessenia Perrin INTERNAL MEDICINE VETERINARY TECHNICIAN.STONE CRUSHER OPERATOR Work Phone: [facility] Comment on above: Visual disturbance o f one eye (Primary Dx); Treatment not available Start: 03-14-2022 Documentation procedure Mammog demond Coordinator [facility] Start: 03-14-2022 Letter encounter Mammography Coordinator [facility] Department Start: 03-14-2022 Telephone encounter Jacqueline sales INTERNAL MEDICINE VETERINARY TECHNICIAN.STONE CRUSHER OPERATOR Work Phone: [facility] [place] Comment on above: Results Mammogram Result Jd l Back Start: 03-14-2022 End: 03-14-2022 Subsequent hospital visit by physician Screen Mammo [facility] Mammogram Comment on above: Screening breast exa mination [Z12.39] Start: 03-08-2022 End: 03-08-2022 Patient encounter procedure Vincenzo Garcia MD Work Phone: [facility] [place] Comment on above: Essential hypertensi on (Primary Dx); Hypothyroidism, unspecified type; Anxiety; ROMAN (obstructive sleep apnea); Viral warts, unspecified type; Screening for colon cancer; Screening breast examination Start: 01-03-2022 Refill Vincenzo Garcia MD Work Phone: [facility] [place] Comment on above: Refill Request Start: 08-02-2021 End: 08-02-2021 Patient encounter procedure Elizabet Swanson MD Work Phone: General Surgery Comment on above: Anal pruritus (Prima ry Dx); Anal or rectal pain; Screening for colon cancer; Internal hemorrhoids Start: 10-05-2017 End: 10-15-2017 Patient encounter VINCENZO GARCIA [facility] Procedures Date Procedure Procedure Detail Performing Clinician Start: 12-21-2023 Lipid 1996 panel - S bobo or Plasma Stefan Chu MD Work Phone: Start: 11-02-2023 Radex spine cervical 4 or 5 views Vincenzo Garcia MD Work Phone: Start: 01-30-2023 Radex spine cervical 4 or 5 views Jacqueline Serrato APRN.STONE CRUSHER OPERATOR Work Phone: Start: 04-16-2022 Digital breast tomosynthesis unilateral Vincenzo Garcia MD Work Phone: Start: 03-14-2022 End: 03-14-2022 Mammography Vincenzo Garcia MD Work Phone: Start: 03-04-2022 Lipid 1996 panel - S bobo or Plasma Diagnostic [facility] Start: 07-22-2021 Adult depression scr eening assessment Elizabet Swanson MD Work Phone: Start: 02-22-2021 Mammography Elizabet Swanson MD Work Phone: Plan of Treatment Date Care Activity Detail Author Start: 12-20-2028 Lipid panel Lipid Screening [facility] Start: 03-04-2027 Lipid 1996 panel - S bobo or Plasma Lipid Screening [facility] Start: 03-04-2027 Lipid panel Lipid Screening [facility] Start: 03-04-2027 LIPID SCREEN LIPID SCREEN [facility] Start: 12-20-2026 Diabetes Screening Diabetes Screenin g [facility] Start: 01-30-2026 [facility] Start: 01-12-2026 LIPID SCREEN LIPID SCREEN [facility] Start: 04-04-2025 Annual PCP Team Truant Officer bjorn Disease Visit Annual PCP Team Chronic Disease Visit [facility] Start: 03-13-2025 Cologuard (FIT-DNA) Cologuard (FIT-D NA) [facility] Start: 03-13-2025 Colorectal Cancer Screening Colorectal Cancer Screening [facility] Start: 03-13-2025 Screening for malign ant neoplasm of colon [facility] Start: 03-04-2025 DIABETES SCREEN DIABETES SCREEN [facility] Start: 03-04-2025 Diabetes Screening Diabetes Screenin g [facility] Start: 11-22-2024 Annual PCP Team Truant Officer bjorn Disease Visit Annual PCP Team Chronic Disease Visit [facility] Start: 11-01-2024 Annual PCP Team Truant Officer bjorn Disease Visit Annual PCP Team Chronic Disease Visit [facility] Start: 10-10-2024 Influenza vaccination Influenz a Vaccine (Season Ended) [facility] Start: 08-13-2024 Annual PCP Team Truant Officer bjorn Disease Visit Annual PCP Team Chronic Disease Visit [facility] Start: 06-19-2024 Annual PCP Team Truant Officer bjorn Disease Visit Annual PCP Team Chronic Disease Visit [facility] Start: 06-07-2024 HPV TESTING HPV TESTING [facility] Start: 06-07-2024 PAP TESTING PAP TESTING [facility] Start: 06-07-2024 Screening for malign ant neoplasm of cervix [facility] Start: 05-07-2024 Screening for malign ant neoplasm of breast Mammogram Screening [facility] Start: 03-02-2024 Annual PCP Team Truant Officer bjorn Disease Visit Annual PCP Team Chronic Disease Visit [facility] Start: 02-08-2024 End: 02-08-2024 ambulatory 02/08/2024 8:00 AM EST OT/PT/Speech Visit [facility] [address] [place] [address] Britany Forrester, VEHICLE LEASING AND RENTAL MANAGER [address] [place] [address] Neck pain [facility] Comment on above: Neck pain Start: 02-01-2024 End: 02-01-2024 ambulatory 02/01/2024 8:00 AM EST OT/PT/Speech Visit [facility] [address] [place] [address] Britany Forrester, VEHICLE LEASING AND RENTAL MANAGER [address] [place] [address] Neck pain [facility] Comment on above: Neck pain Start: 01-13-2024 DIABETES SCREEN DIABETES SCREEN [facility] Start: 12-28-2023 End: 12-28-2023 ambulatory 12/28/2023 5:15 PM EST OT/PT/Speech Visit [facility] [address] [place] [address] ChristianonMerlene, PT Neck pain [M54.2] [facility] Comment on above: Neck pain [M54.2] Start: 12-21-2023 End: 12-21-2023 Patient encounter procedure 12/21/2023 5:40 PM EST Office Visit [facility] [place] [address] [facility] [place] [address] Vincenzo Garcia MD [address] [place] [address] 6 month f/u [facility] Comment on above: 6 month f/u Start: 12-21-2023 End: 03-21-2024 25-hydroxyvitamin D3 [Mass/volume] in Serum or Plasma VITAMIN D 25 HYDROXY Lab Routine Vitamin D deficiency Expected: 12/21/2023, Expires: 03/21/2024 [facility] Comment on above: Expected: 12/21/2023 , Expires: 03/21/2024 Start: 12-21-2023 End: 03-21-2024 CBC W Auto Differential panel - Blood COMPLETE BLOOD COUNT AND DIFFERENTIAL Lab Routine Essential hypertension Expected: 12/21/2023, Expires: 03/21/2024 [facility] Work Phone: Comment on above: Expected: 12/21/2023 , Expires: 03/21/2024 Start: 12-21-2023 End: 03-21-2024 Comprehensive metabolic 2000 panel - Serum or Plasma COMPREHENSIVE METABOLIC PANEL Lab Routine Essential hypertension Expected: 12/21/2023, Expires: 03/21/2024 [facility] Comment on above: Expected: 12/21/2023 , Expires: 03/21/2024 Start: 12-21-2023 End: 03-21-2024 Lipid 1996 panel - Serum or Plasma LIPID PANEL BASIC Lab Routine Essential hypertension Expected: 12/21/2023, Expires: 03/21/2024 [facility] Comment on above: Expected: 12/21/2023 , Expires: 03/21/2024 Start: 12-21-2023 End: 03-21-2024 Thyrotropin [Units/volume] in Serum or Plasma THYROID STIMULATING HORMONE Lab Routine Hypothyroidism, unspecified type Expected: 12/21/2023, Expires: 03/21/2024 [facility] Comment on above: Expected: 12/21/2023 , Expires: 03/21/2024 Start: 11-23-2023 End: 11-23-2023 Patient encounter procedure 11/23/2023 5:40 PM EDT Office Visit [facility] [place] [address] [place] [address] Jacqueline Serrato APRN.STONE CRUSHER OPERATOR [address] [place] [address] 2 week follow up increase metoprolol add imitrex [facility] [place] Comment on above: 2 week follow up inc rease metoprolol add imitrex Start: 10-11-2023 Covid-19 Vaccine () Covid-19 Vaccine () [facility] Start: 10-11-2023 Covid-19 Vaccine () Covid-19 Vaccine () [facility] Start: 10-11-2023 Influenza vaccination [facility] Start: 03-16-2023 End: 03-30-2023 COVID & INFLUENZA A/B & RSV NAAT, ROUTINE COVID & INFLUENZA A/B & RSV NAAT, ROUTINE Microbiology Routine URI, acute Expected: 03/16/2023, Expires: 03/30/2023 [facility] Work Phone: Comment on above: Expected: 03/16/2023 , Expires: 03/30/2023 Start: 03-14-2023 Mammography [facility] Start: 03-14-2023 Screening for malign ant neoplasm of breast Mammogram Screening [facility] Start: 03-08-2023 ANNUAL PCP TEAM BUSINESS PROCESS MODELER BJORN DISEASE VISIT ANNUAL PCP TEAM CHRONIC DISEASE VISIT [facility] Start: 03-08-2023 COVID-19 VACCINE (3 - Booster for Pfizer series) COVID-19 VACCINE (3 - Booster for Pfizer series) [facility] Comment on above: Postponed from 12/21 (Declined at this time) Start: 02-09-2023 Depression Assessment Depression Ass essment [facility] Start: 10-10-2022 Covid-19 Vaccine () Covid-19 Vaccine () [facility] Start: 10-10-2022 Influenza vaccination Influenza Vacc ine (#1) [facility] Start: 08-08-2022 Influenza vaccination INFLUENZA (#1) [facility] Comment on above: Postponed from 10/10 (Declined at this time) Start: 07-26-2022 ANNUAL PCP TEAM BUSINESS PROCESS MODELER BJORN DISEASE VISIT ANNUAL PCP TEAM CHRONIC DISEASE VISIT [facility] Start: 07-22-2022 Adult depression screening assessment DEPRESSION SCREENING [facility] Start: 02-22-2022 Mammography MAMMOGRAM [facility] Start: 10-10-2021 Influenza vaccination [facility] Start: 03-28-2021 COVID-19 VACCINE (3 - Booster for Pfizer series) COVID-19 VACCINE (3 - Booster for Pfizer series) [facility] Start: 02-09-2021 DEPRESSION ASSESSMENT DEPRESSION ASS ESSMENT [facility] Start: 12-21-2020 COVID-19 VACCINE (3 - Booster for Pfizer series) COVID-19 VACCINE (3 - Booster for Pfizer series) [facility] Start: 07-22-2019 COLOGUARD (FIT-DNA) COLOGUARD (FIT-D NA) [facility] Start: 07-22-2019 Colonoscopy COLONOSCOPY [facility] Start: 07-22-2019 COLORECTAL CANCER SCREENING COLORECTAL CANCER SCREENING [facility] Start: 07-22-[address] COLONOGRAPHY [facility] Start: 07-22-2019 FECAL OCCULT BLOOD FECAL OCCULT BLOO D [facility] Start: 07-22-2019 Screening for malign ant neoplasm of colon [facility] Start: 07-22-[address] [facility] Start: 1993 Hepatitis B Vaccine (1 of 3 - 19+ 3-dose series) Hepatitis B Vaccine (1 of 3 - 19+ 3-dose series) [facility] Start: 1993 Urine microalbumin profile [facility] Start: 1992 BP CONTROLLED (<130/80) BP CONTROLLE D (<130/80) [facility] Start: 1992 Depression Screening Depression Scre ening [facility] Start: 1992 HEPATITIS C SCREENING HEPATITIS C SC REENING [facility] Start: 1992 HIV SCREENING HIV SCREENING [facility] Start: 1974 HEPATITIS B (1 of 3 - 3-dose series) HEPATITIS B (1 of 3 - 3-dose series) [facility] Start: 1974 Hepatitis B Vaccine (1 of 3 - 3-dose series) Hepatitis B Vaccine (1 of 3 - 3-dose series) [facility] COLOGUARD COLOGUARD Lab Ro utine Screening for colon cancer Ordered: 03/08/2022 [facility] Work Phone: Comment on above: Ordered: 03/08/2022 End: 07-14-2025 DBT Breast - bilateral screening WADE SCREENING W [facility] Radiology Routine Encounter for screening mammogram for breast cancer 1 Occurrences starting 06/14/2024 until 07/14/2025 [facility] Work Phone: Comment on above: 1 Occurrences starti ng 06/14/2024 until 07/14/2025 End: 04-13-2023 Diagnostic mammography computer-aided detcj uni WADE DIAGNOSTIC LT Radiology Routine Inconclusive mammography 1 Occurrences starting 03/14/2022 until 04/13/2023 [facility] Work Phone: Comment on above: 1 Occurrences starti ng 03/14/2022 until 04/13/2023 End: 04-07-2023 WADE SCREENING WADE SCREENING Radiology Routine Screening breast examination 1 Occurrences starting 03/08/2022 until 04/07/2023 [facility] Work Phone: Comment on above: 1 Occurrences starti ng 03/08/2022 until 04/07/2023 End: 05-21-2024 MG Breast Screening WADE SCREENING Radiology Routine Encounter for screening mammogram for breast cancer 1 Occurrences starting 04/22/2023 until 05/21/2024 [facility] Work Phone: Comment on above: 1 Occurrences starti ng 04/22/2023 until 05/21/2024 End: 04-13-2023 Us breast uni real time with image limited US BREAST LTD LT Radiology Routine Inconclusive mammography 1 Occurrences starting 03/14/2022 until 04/13/2023 [facility] Work Phone: Comment on above: 1 Occurrences starti ng 03/14/2022 until 04/13/2023 End: 12-01-2024 XR Cervical spine AP and Lateral and oblique XR CERV OTHER 4V AP/LAT/OBL Radiology Routine Neck pain 1 Occurrences starting 11/02/2023 until 12/01/2024 [facility] Work Phone: Comment on above: 1 Occurrences starti ng 11/02/2023 until 12/01/2024 XR Cervical spine AP and Lateral and oblique XR CERV OTHER 4V AP/LAT/OBL Radiology Routine Neck pain 11/02/2023 7:[address] [facility] Immunizations Immunization Date Immunization Notes Care Provider Fa cility 10-26-2020 COVID-19 vaccine, ag e 12+ yr (PFIZER-BIONTECH - PURPLE TOP) Elizabet Swanson MD Work Phone: [facility] 10-05-2020 COVID-19 vaccine, ag e 12+ yr (PFIZER-BIONTECH - PURPLE TOP) Elizabet Swanson MD Work Phone: [facility] 01-01-2019 Influenza, injectabl e, Madin Campbell Canine Kidney, quadrivalent with preservative Vincenzo Garcia MD Work Phone: [facility] 01-01-2019 influenza virus vaccine, unspecified formulation Diagnostic Wstr [facility] 07-09-2001 hepatitis B vaccine, pediatric or pediatric/adolescent dosage Vincenzo Garcia MD Work Phone: [facility] 07-09-2001 hepatitis B vaccine, unspecified formulation Vincenzo Garcia MD Work Phone: [facility] 02-08-2001 hepatitis B vaccine, pediatric or pediatric/adolescent dosage Vincenzo Garcia MD Work Phone: [facility] 01-04-2001 hepatitis B vaccine, pediatric or pediatric/adolescent dosage Vincenzo Garcia MD Work Phone: [facility] Payers Date Payer Category Payer Self-pay 2017 [facility] BLUE CARD PPO OOS [id number] 2017 Unknown [employer] BLUE CARD PPO OOS [id number] 2017-Present [phone] [address] [place] [address] PPO [id number] 2017 Unknown [employer] BLUE CARD PPO OOS [id number] 2017-Present [phone] [address] [place] [address] PPO [id number] 2017 Unknown [id number] Unknown [id number] Social History Date Type Detail Facility Start: 06-04-2017 End: 03-08-2022 Tobacco smoking status NHIS Never smoked tobacco [facility] Start: 08-02-2021 End: 04-04-2024 Alcohol intake Current non-drinker of alcohol (finding) [facility] Start: 11-29-2019 End: 03-01-2022 History SDOH Alcohol Frequency 1 [facility] Start: 11-29-2019 End: 03-01-2022 History SDOH Social Connections Phone 2 [facility] Start: 11-29-2019 End: 03-01-2022 History SDOH Social Connections Living 5 [facility] Start: 11-29-2019 End: 03-01-2022 History SDOH Physical Activity DPW 0 [facility] Start: 11-29-2019 History SDOH Stress 4 [facility] Start: 11-29-2019 End: 03-01-2022 History SDOH Financial 3 [facility] Start: 11-29-2019 Education 17 [facility] Start: 1975 Sex Assigned At Female [facility] Start: 07-23-2021 End: 08-02-2021 Exposure to SARS-CoV-2 (event) Not sure [facility] Start: 06-04-2017 End: 03-08-2022 Tobacco use and exposure Smokeless tobacco non-user [facility] Work Phone: Start: 03-01-2022 End: 01-30-2023 History of Social function [facility] Start: 03-01-2022 End: 01-30-2023 Social connection and isolation panel [facility] Do you belong to any clubs or organizations such as mu-ism groups, unions, fraternal or athletic groups, or school groups? No [facility] Are you now , , , , never or living with a partner? [facility] How often to you hav e a drink containing alcohol? Never [facility] How many standard dr inks containing alcohol do you have on a typical day? Patient does not drink [facility] How hard is it for y ou to pay for the very basics like food, housing, medical care, and heating Somewhat hard [facility] Do you feel stress - tense, restless, nervous, or anxious, or unable to sleep at night because your mind is troubled all the time - these days [OSQ] Only a little [facility] (I/We) worried wheth er (my/our) food would run out before (I/we) got money to buy more. Never true [facility] Start: 05-31-2020 Gender identity Identifies as female gender (finding) [facility] Start: 05-31-2020 Sexual orientation Heterosexual (finding) [facility] Clinical Notes 08-02-2021 to 06-14-2024 Patient Jacqueline Trevino APRN.[facility] - 04/04/2024 2:22 PM Sapphire Conde APRN.[facility] - 04/02/2024 8:50 AM ESTTelephone Encounter - Sandie Hutson LPN - 04/01/2024 9:06 AM EST Note Date & Type Note Facility 06-14-2024 Note Patient Outreach (FA MPWS) DILEEPTimSHANIQUA A ([id number]) 1975 F Date Time Provider Department 06/14/24 VINCENZO GARCIA During your visit today, we recorded the following information about you: Allergies As of Date: 06/14/2024 Noted Allergy Reaction AMOXICILLIN 12/15/2005 4 - Hives CHLORHEXIDINE 01/11/2018 2 - Rash Comments: Chlorapep VENTOLIN (ALBUTEROL SULFATE) 12/15/2005 12 - Shortness of Breath Date Reviewed: 04/04/2024 Reviewed by: Alejandro Jerez LPN - Fully Assessed Visit Diagnosis:Encounter for screening mammogram for breast cancer [Z12.31] Order(s):WADE ORLANDO [[id number]] Order #: [id number] FUTURE Prescriptions as of 07/15/2024 - benzonatate (TESSALON PERLE) 100 mg capsule Take 1 capsule by mouth three times a day as needed. - cholecalciferol, Vitamin D3, (VITAMIN D3) 1,250 mcg (50,000 unit) cap capsule Take 1 capsule by mouth one time a week. - citalopram (CELEXA) 40 mg tablet Take 1 tablet by mouth once daily. - rizatriptan (MAXALT-DETECTIVE) 10 mg disintegrating tablet Take 1 tablet (10 mg) by mouth as needed. May repeat dose after 2 hours if needed. Maximum daily dose is 30 mg per day. - metoprolol succinate ER (TOPROL XL) 50 mg 24 hr tablet Take 1 tablet by mouth once daily. - buPROPion XL (WELLBUTRIN XL) 300 mg 24 hr tablet Take 1 tablet by mouth once daily. - meloxicam (MOBIC) 15 mg tablet Take 1 tablet by mouth once daily as needed. With food. - levothyroxine (SYNTHROID) 75 mcg tablet Take 1 tablet by mouth daily before breakfast. - cyclobenzaprine (FLEXERIL) 10 mg tablet Take 1 tablet by mouth two times a day as needed for muscle spasm. - COMPOUNDED PRESCRIPTION AutoPAP 5-15 cmH2O with heated humidification A medium Respironics Jolly View full face mask without chin strap Problem List As Of Date 06/14/2024 Noted Resolved Hypothyroid [E03.9] Anxiety [F41.9] 06/04/2017 ROMAN (obstructive sleep apnea) [G47.33] 10/14/2017 Bilateral carpal tunnel syndrome [G56.03] 10/27/2017 Essential hypertension [I10] 12/05/2019 Acute headache [R51.9] 03/08/2022 03/08/2022 Neck pain [M54.2] 12/28/2023 Encounter Status:Closed by EPIC, PRODUSER on 07/15/24 [facility] 04-04-2024 Instructions Jacqueline Serrato APRN.STONE CRUSHER OPERATOR - 04/04/2024 2:48 PM EST Start taking prednisone Start taking tessalon perles Continue to use mucinex, inhaler, drink lots of fluids Follow up if symptoms worsen or do not improve documented in this encounter [facility] 04-04-2024 Note HNO ID: [id number] Author: JACQUELINE SERRATO APRN.STONE CRUSHER OPERATOR Service: ? Author Type: Nurse Practitioner Type: Progress Notes Filed: 04/04/2024 19:43 Note Text: 48 year old female with c/o URI sx over the last 3 days with Flu A Tested positive for flu on Thursday Was seen at urgent care, during visit she started to cough and lose color She was sent to the ER Received dex bocanegra in the ER Was given an inhaler at the ER and has been using that with some relief Has trouble taking deep breaths CXR at ER was negative Sore throat: Yes. Runny/stuffy nose: Yes. Postnasal drip: Sometimes. Throat clearing: No. Sinus pain/ pressure: Yes. Teeth pain: Yes. Headache Sometimes. Body aches Yes. Ear pain: Yes. Cough: Yes. Production: Yes. Fever: 100.2 on 04/02 at urgent care. Hx asthma No. Hx pneumonia No. Smoker: No. OTC meds tried: mucinex. ACTIVE PROBLEM LIST Hypothyroid Anxiety Roman (Obstructive Sleep Apnea) Bilateral Carpal Tunnel Syndrome Essential Hypertension Neck Pain Current Outpatient Medications Medication Sig Dispense Refill cholecalciferol, Vitamin D3, (VITAMIN D3) 1,250 mcg (50,000 unit) cap capsule Take 1 capsule by mouth one time a week. 12 capsule 1 citalopram (CELEXA) 40 mg tablet Take 1 tablet by mouth once daily. 90 tablet 1 rizatriptan (MAXALT-DETECTIVE) 10 mg disintegrating tablet Take 1 tablet (10 mg) by mouth as needed. May repeat dose after 2 hours if needed. Maximum daily dose is 30 mg per day. 9 tablet 1 metoprolol succinate ER (TOPROL XL) 50 mg 24 hr tablet Take 1 tablet by mouth once daily. 90 tablet 3 buPROPion XL (WELLBUTRIN XL) 300 mg 24 hr tablet Take 1 tablet by mouth once daily. 90 tablet 1 meloxicam (MOBIC) 15 mg tablet Take 1 tablet by mouth once daily as needed. With food. 90 tablet 1 levothyroxine (SYNTHROID) 75 mcg tablet Take 1 tablet by mouth daily before breakfast. 90 tablet 1 cyclobenzaprine (FLEXERIL) 10 mg tablet Take 1 tablet by mouth two times a day as needed for muscle spasm. 60 tablet 0 COMPOUNDED PRESCRIPTION AutoPAP 5-15 cmH2O with heated humidification A medium [facility] full face mask without chin strap 1 Each 0 No current facility-administered medications for this visit. OBJECTIVE: BP 136/92 Pulse 105 Resp 16 LMP 06/03/2019 SpO2 96% General Appearance: Well appearing, alert, in no acute distress, well-hydrated, well nourished.. Skin: Skin color, texture, turgor normal, no suspicious rashes or lesions. Head: Normocephalic, no masses, lesions, tenderness or abnormalities. Eyes: Anicteric sclera. Pupils are equally round and reactive to light. Extraocular movements are intact. . Ears: External ears normal, canals clear. Nose/Sinuses: Nares normal, septum midline, mucosa normal, no drainage or sinus tenderness, Positive findings: clear rhinorrhea, post nasal drainage. Oropharynx: Lips, mucosa, and tongue normal, teeth and gums normal, oropharynx normal. Neck: Supple, no adenopathy; thyroid symmetric, normal size, no bruits. Lungs: Lungs clear to auscultation. No wheezing, rhonchi, rales. Bronchospasm cough elicited with deep breaths. Heart: RRR without murmur, gallop, or rubs. No ectopy. Neurologic: Gait normal. Reflexes normal and symmetric. Sensation grossly intact. ASSESSMENT/PLAN: 1. Bronchitis - ICD9: 490, ICD10: J40 (primary diagnosis) - Start taking steroid - Start taking tessalon perles for cough - Discussed with patient to follow up for worsening signs or symptoms - PREDNISONE 20 MG TABLET - BENZONATATE 100 MG CAPSULE 2. URI, acute - ICD9: 465.9, ICD10: J06.9 - Discussed viral etiology and rationale for treatment. - Symptomatic treatment with prn analgesia - Supportive care with fluids and rest - The patient may also use OTC decongestants prn, OTC cough and cold meds as needed, warm salt water gargles, throat lozenges and/or OTC throat spray as needed, and nasal saline gtts and suction prn. 3. Influenza A - ICD9: 487.1, ICD10: J10.1 - Continue supportive care with fluids and rest - Continue OTC measures such as tylenol, mucinex - PREDNISONE 20 MG TABLET - BENZONATATE 100 MG CAPSULE Plan: Nasal saline, decongestant, cool mist, rest , fluids, good nutrition Observation 5-7 days for improvment If worse, fever > 101F : call or return See orders and/or patient instructions. Patient ( or Guardian) expressed understanding of instructions on review. Discussed treatment plan and patient voices understanding. Patient's questions answered appropriately. Medications and potential side effects were discussed and patient voices understanding. Return to the office as scheduled or as needed for worsening/no improvement. Jacqueline Serrato APRN.[facility] 04-04-2024 History of Presen t illness Narrative 48 year old female with c/o URI sx over the last 3 days with Flu A Tested positive for flu on Thursday Was seen at urgent care, during visit she started to cough and lose color She was sent to the ER Received dex bocanegra in the ER Was given an inhaler at the ER and has been using that with some relief Has trouble taking deep breaths CXR at ER was negative Sore throat: Yes. Runny/stuffy nose: Yes. Postnasal drip: Sometimes. Throat clearing: No. Sinus pain/ pressure: Yes. Teeth pain: Yes. Headache Sometimes. Body aches Yes. Ear pain: Yes. Cough: Yes. Production: Yes. Fever: 100.2 on 04/02 at urgent care. Hx asthma No. Hx pneumonia No. Smoker: No. OTC meds tried: mucinex. ACTIVE PROBLEM LIST Hypothyroid Anxiety Roman (Obstructive Sleep Apnea) Bilateral Carpal Tunnel Syndrome Essential Hypertension Neck Pain Current Outpatient Medications Medication Sig Dispense Refill cholecalciferol, Vitamin D3, (VITAMIN D3) 1,250 mcg (50,000 unit) cap capsule Take 1 capsule by mouth one time a week. 12 capsule 1 citalopram (CELEXA) 40 mg tablet Take 1 tablet by mouth once daily. 90 tablet 1 rizatriptan (MAXALT-DETECTIVE) 10 mg disintegrating tablet Take 1 tablet (10 mg) by mouth as needed. May repeat dose after 2 hours if needed. Maximum daily dose is 30 mg per day. 9 tablet 1 metoprolol succinate ER (TOPROL XL) 50 mg 24 hr tablet Take 1 tablet by mouth once daily. 90 tablet 3 buPROPion XL (WELLBUTRIN XL) 300 mg 24 hr tablet Take 1 tablet by mouth once daily. 90 tablet 1 meloxicam (MOBIC) 15 mg tablet Take 1 tablet by mouth once daily as needed. With food. 90 tablet 1 levothyroxine (SYNTHROID) 75 mcg tablet Take 1 tablet by mouth daily before breakfast. 90 tablet 1 cyclobenzaprine (FLEXERIL) 10 mg tablet Take 1 tablet by mouth two times a day as needed for muscle spasm. 60 tablet 0 COMPOUNDED PRESCRIPTION AutoPAP 5-15 cmH2O with heated humidification A medium [employer] Jolly View full face mask without chin strap 1 Each 0 No current facility-administered medications for this visit. OBJECTIVE: BP 136/92 Pulse 105 Resp 16 LMP 06/03/2019 SpO2 96% General Appearance: Well appearing, alert, in no acute distress, well-hydrated, well nourished.. Skin: Skin color, texture, turgor normal, no suspicious rashes or lesions. Head: Normocephalic, no masses, lesions, tenderness or abnormalities. Eyes: Anicteric sclera. Pupils are equally round and reactive to light. Extraocular movements are intact. . Ears: External ears normal, canals clear. Nose/Sinuses: Nares normal, septum midline, mucosa normal, no drainage or sinus tenderness, Positive findings: clear rhinorrhea, post nasal drainage. Oropharynx: Lips, mucosa, and tongue normal, teeth and gums normal, oropharynx normal. Neck: Supple, no adenopathy; thyroid symmetric, normal size, no bruits. Lungs: Lungs clear to auscultation. No wheezing, rhonchi, rales. Bronchospasm cough elicited with deep breaths. Heart: RRR without murmur, gallop, or rubs. No ectopy. Neurologic: Gait normal. Reflexes normal and symmetric. Sensation grossly intact. ASSESSMENT/PLAN: 1. Bronchitis - ICD9: 490, ICD10: J40 (primary diagnosis) - Start taking steroid - Start taking tessalon perles for cough - Discussed with patient to follow up for worsening signs or symptoms - PREDNISONE 20 MG TABLET - BENZONATATE 100 MG CAPSULE 2. URI, acute - ICD9: 465.9, ICD10: J06.9 - Discussed viral etiology and rationale for treatment. - Symptomatic treatment with prn analgesia - Supportive care with fluids and rest - The patient may also use OTC decongestants prn, OTC cough and cold meds as needed, warm salt water gargles, throat lozenges and/or OTC throat spray as needed, and nasal saline gtts and suction prn. 3. Influenza A - ICD9: 487.1, ICD10: J10.1 - Continue supportive care with fluids and rest - Continue OTC measures such as tylenol, mucinex - PREDNISONE 20 MG TABLET - BENZONATATE 100 MG CAPSULE Plan: Nasal saline, decongestant, cool mist, rest , fluids, good nutrition Observation 5-7 days for improvment If worse, fever > 101F : call or return See orders and/or patient instructions. Patient ( or Guardian) expressed understanding of instructions on review. Discussed treatment plan and patient voices understanding. Patient's questions answered appropriately. Medications and potential side effects were discussed and patient voices understanding. Return to the office as scheduled or as needed for worsening/no improvement. Jacqueline Serrato APRN.[employer] documented in this encounter [facility] 04-02-2024 Note HNO ID: [id number] Author: SAPPHIRE DANGELO APRN.SHELL Service: ? Author Type: Nurse Practitioner Type: Progress Notes Filed: 04/02/2024 08:51 Note Text: Female with complaints of upper respiratory issues. Upon walking in the room and exam patient started coughing and gasping for air. Patient was tripoding to get air. It took her a few seconds to get herself together. Patient was starting to turn a blue-purple color. Patient was able to pull herself together but at this time due to patient's cough and difficulty getting air patient is being referred to the emergency room for more thorough evaluation. Patient was agreeable and they will go now. [facility] 04-02-2024 History of Presen t illness Narrative Female with complaints of upper respiratory issues. Upon walking in the room and exam patient started coughing and gasping for air. Patient was tripoding to get air. It took her a few seconds to get herself together. Patient was starting to turn a blue-purple color. Patient was able to pull herself together but at this time due to patient's cough and difficulty getting air patient is being referred to the emergency room for more thorough evaluation. Patient was agreeable and they will go now. documented in this encounter [facility] 04-01-2024 Telephone encounter Note Prescription Refill Information The patient has been identified by name and date of : Yes Caregiver verified no other encounters exist for this prescription request: Yes Caregiver confirmed with patient/requestor that no other refills are due, in the near future, with this provider at this time: Yes The last office visit in the department: 11/23/23 Does the patient have a future office visit with this provider/department: No Requested Prescriptions Pending Prescriptions Disp Refills cholecalciferol, Vitamin D3, (VITAMIN D3) 1,250 mcg (50,000 unit) cap capsule 12 capsule 1 Sig: Take 1 capsule by mouth one time a week. Sandie Hutson LPN April 01, 2024 9:06 AM [facility] 04-01-2024 Miscellaneous Notes Prescription Refill Information The patient has been identified by name and date of : Yes Caregiver verified no other encounters exist for this prescription request: Yes Caregiver confirmed with patient/requestor that no other refills are due, in the near future, with this provider at this time: Yes The last office visit in the department: 11/23/23 Does the patient have a future office visit with this provider/department: No Requested Prescriptions Pending Prescriptions Disp Refills cholecalciferol, Vitamin D3, (VITAMIN D3) 1,250 mcg (50,000 unit) cap capsule 12 capsule 1 Sig: Take 1 capsule by mouth one time a week. Sandie Hutson LPN April 01, 2024 9:06 AM documented in this encounter [facility] 02-08-2024 Note HNO ID: [id number] Author: MERLENE JENKINS PT Service: ? Author Type: Physical Therapist Type: Progress Notes Filed: 02/08/2024 09:35 Note Text: Episode Visit Count: 4 Therapist That Will Accept/Oversee The Plan Of Care: Merlene Jenkins Start of Care Date: 12/28/23 Onset Date: (All my life.) Patient Identified by Name and Date of : Yes REHABILITATION AND SPORTS THERAPY PHYSICAL THERAPY TREATMENT NOTE ASSESSMENT: Shaniqua Carlson tolerated the session with decreased symptoms. She demonstrated improvements in endurance with sustained cervical retraction. The patient will continue to benefit from ongoing skilled physical therapy to progress toward set goals. PLAN FOR NEXT VISIT: D/C SUBJECTIVE: Pt reports that after last session her neck really knoted up. Took some Ibuprofen and felt better. Neck is feeling better today. Pt would like this to be her last visit, states I'm just doing this for insureance. Pain: Pain Pain Level: 1 Pain Location: Neck - Left, Neck - Right, Shoulder - Left, Shoulder - Right Post Treatment Pain Post Treatment Pain Level: 0 Post Treatment Pain Location: Neck OBJECTIVE MEASURES WITH LEVEL OF FUNCTION: Good form with cervical retraction with lower cervical extension TREATMENT: Therapeutic Exercise: 1: cervical flexion stretch 3x30 seconds 2: Scapular retraction 3x10 3: Cervical retraction 3x10 4: Cervical retraction with lower cervical extension 2x10 5: Cervical retraction with AROM horizontal abduction 3x10 Skilled Intervention: Patient was educated in proper exercise technique and purpose for exercises. Skilled judgment was used in selection of appropriate interventions. Correct performance of therapeutic exercises was facilitated with verbal and visual cuing. Billing Therapeutic Exercise Treatment Minutes: 39 Skilled Treatment Time Minutes (timed and untimed codes): 39 Total Session Time (minutes): 39 Session Start Time : 756 Session Stop Time : 835 TIESHA Anthony PT [facility] 02-08-2024 History of Presen t illness Narrative Episode Visit Count: 4 Therapist That Will Accept/Oversee The Plan Of Care: Merlene Jenkins Start of Care Date: 12/28/23 Onset Date: (All my life.) Patient Identified by Name and Date of : Yes REHABILITATION AND SPORTS THERAPY PHYSICAL THERAPY TREATMENT NOTE ASSESSMENT: Shaniqua Carlson tolerated the session with decreased symptoms. She demonstrated improvements in endurance with sustained cervical retraction. The patient will continue to benefit from ongoing skilled physical therapy to progress toward set goals. PLAN FOR NEXT VISIT: D/C SUBJECTIVE: Pt reports that after last session her neck really knoted up. Took some Ibuprofen and felt better. Neck is feeling better today. Pt would like this to be her last visit, states I'm just doing this for insureance. Pain: Pain Pain Level: 1 Pain Location: Neck - Left, Neck - Right, Shoulder - Left, Shoulder - Right Post Treatment Pain Post Treatment Pain Level: 0 Post Treatment Pain Location: Neck OBJECTIVE MEASURES WITH LEVEL OF FUNCTION: Good form with cervical retraction with lower cervical extension TREATMENT: Therapeutic Exercise: 1: cervical flexion stretch 3x30 seconds 2: Scapular retraction 3x10 3: Cervical retraction 3x10 4: Cervical retraction with lower cervical extension 2x10 5: Cervical retraction with AROM horizontal abduction 3x10 Skilled Intervention: Patient was educated in proper exercise technique and purpose for exercises. Skilled judgment was used in selection of appropriate interventions. Correct performance of therapeutic exercises was facilitated with verbal and visual cuing. Billing Therapeutic Exercise Treatment Minutes: 39 Skilled Treatment Time Minutes (timed and untimed codes): 39 Total Session Time (minutes): 39 Session Start Time : 756 Session Stop Time : 835 TIESHA Anthony PT documented in this encounter [facility] 02-05-2024 Telephone encounter Note Prescription Refill Information The patient has been identified by name and date of : Yes Caregiver verified no other encounters exist for this prescription request: Yes Caregiver confirmed with patient/requestor that no other refills are due, in the near future, with this provider at this time: Yes The last office visit in the department: 06/20/2023 Does the patient have a future office visit with this provider/department: No Requested Prescriptions Pending Prescriptions Disp Refills citalopram (CELEXA) 40 mg tablet 90 tablet 1 Sig: Take 1 tablet by mouth once daily. Griselda Ivory LPN February 05, 2024 8:57 AM [facility] 02-05-2024 Miscellaneous Notes Prescription Refill Information The patient has been identified by name and date of : Yes Caregiver verified no other encounters exist for this prescription request: Yes Caregiver confirmed with patient/requestor that no other refills are due, in the near future, with this provider at this time: Yes The last office visit in the department: 06/20/2023 Does the patient have a future office visit with this provider/department: No Requested Prescriptions Pending Prescriptions Disp Refills citalopram (CELEXA) 40 mg tablet 90 tablet 1 Sig: Take 1 tablet by mouth once daily. Griselda Ivory LPN February 05, 2024 8:57 AM documented in this encounter [facility] 02-01-2024 Note HNO ID: [id number] Author: MANDO MUIR PT Service: ? Author Type: Physical Therapist Type: Progress Notes Filed: 02/01/2024 09:38 Note Text: Episode Visit Count: 3 Therapist That Will Accept/Oversee The Plan Of Care: Merlene Jenkins Start of Care Date: 12/28/23 Onset Date: (All my life.) Patient Identified by Name and Date of : Yes REHABILITATION AND SPORTS THERAPY PHYSICAL THERAPY TREATMENT NOTE ASSESSMENT: Shaniqua Carlson tolerated the session with fatigue, decreased symptoms, and expected muscle soreness. She demonstrated difficulty with stretching R side of neck due to pinching in L side. The patient will continue to benefit from ongoing skilled physical therapy to progress toward set goals. PLAN FOR NEXT VISIT: Resume cervical retraction SUBJECTIVE: Pt reports that she has been off of her treatment and on 01/27 she fell down her steps and landed on her L side. L side of the neck is irrtiated. Pain: Pain Pain Level: 3 Pain Location: Neck - Left, Neck - Right, Shoulder - Left, Shoulder - Right OBJECTIVE MEASURES WITH LEVEL OF FUNCTION: TTP L UT TREATMENT: Therapeutic Exercise: 1: upper trap stretches 3 x 30 sec L only today 2: levator scapula stretch 3 x 30 sec L only today 3: cervical flexion stretch 3x30 seconds 4: Scapular retraction 2x10 Skilled Intervention: Patient was educated in proper exercise technique and purpose for exercises. Skilled judgment was used in selection of appropriate interventions. Correct performance of therapeutic exercises was facilitated with verbal and visual cuing. Manual Therapy: 1: suboccipital releases with favorable response per pt x 5 min 2: manual intermittent cervical traction x 8 min 3: STm over L UT and cervical paraspinals Skilled Intervention: Manual skills to improve joint mobility, ROM, and decrease pain. Utilized anatomy knowledge of the therapist, and assessment of patient's response to intervention. Billing Therapeutic Exercise Treatment Minutes: 21 Manual TherapyTreatment Minutes: 23 Skilled Treatment Time Minutes (timed and untimed codes): 44 Total Session Time (minutes): 44 Session Start Time : 0757 Session Stop Time : 0841 TIESHA Anthony, PT, DPT. [facility] 02-01-2024 History of Presen t illness Narrative Episode Visit Count: 3 Therapist That Will Accept/Oversee The Plan Of Care: Merlene Jenkins Start of Care Date: 12/28/23 Onset Date: (All my life.) Patient Identified by Name and Date of : Yes REHABILITATION AND SPORTS THERAPY PHYSICAL THERAPY TREATMENT NOTE ASSESSMENT: Shaniqua Carlson tolerated the session with fatigue, decreased symptoms, and expected muscle soreness. She demonstrated difficulty with stretching R side of neck due to pinching in L side. The patient will continue to benefit from ongoing skilled physical therapy to progress toward set goals. PLAN FOR NEXT VISIT: Resume cervical retraction SUBJECTIVE: Pt reports that she has been off of her treatment and on 01/27 she fell down her steps and landed on her L side. L side of the neck is irrtiated. Pain: Pain Pain Level: 3 Pain Location: Neck - Left, Neck - Right, Shoulder - Left, Shoulder - Right OBJECTIVE MEASURES WITH LEVEL OF FUNCTION: TTP L UT TREATMENT: Therapeutic Exercise: 1: upper trap stretches 3 x 30 sec L only today 2: levator scapula stretch 3 x 30 sec L only today 3: cervical flexion stretch 3x30 seconds 4: Scapular retraction 2x10 Skilled Intervention: Patient was educated in proper exercise technique and purpose for exercises. Skilled judgment was used in selection of appropriate interventions. Correct performance of therapeutic exercises was facilitated with verbal and visual cuing. Manual Therapy: 1: suboccipital releases with favorable response per pt x 5 min 2: manual intermittent cervical traction x 8 min 3: STm over L UT and cervical paraspinals Skilled Intervention: Manual skills to improve joint mobility, ROM, and decrease pain. Utilized anatomy knowledge of the therapist, and assessment of patient's response to intervention. Billing Therapeutic Exercise Treatment Minutes: 21 Manual TherapyTreatment Minutes: 23 Skilled Treatment Time Minutes (timed and untimed codes): 44 Total Session Time (minutes): 44 Session Start Time : 756 Session Stop Time : 840 TIESHA Anthony PT, DPT. documented in this encounter [facility] 01-18-2024 History of Presen t illness Narrative Program_ID:[id number] Access Code: [email or web address] URL: [email or web address] Date: 01-18-2024 Prepared By: Merlene Jenkins Program Notes Exercises - Seated Shoulder Shrug Circles AROM Backward - 1-2 x daily - 7 x weekly - 1-2 sets - 10 reps - Seated Gentle Upper Trapezius Stretch - 2 x daily - 7 x weekly - sets - 3-5 reps - Gentle Levator Scapulae Stretch - 2 x daily - 7 x weekly - sets - 3-5 reps - Seated Scapular Retraction - 2 x daily - 7 x weekly - 2 sets - 10 reps - Seated Passive Cervical Retraction - 2 x daily - 7 x weekly - 2 sets - 10 reps Episode Visit Count: 2 Therapist That Will Accept/Oversee The Plan Of Care: Merlene Jenkins Start of Care Date: 12/28/23 Onset Date: (All my life.) Patient Identified by Name and Date of : Yes REHABILITATION AND SPORTS THERAPY PHYSICAL THERAPY TREATMENT NOTE ASSESSMENT: Shaniqua Carlson tolerated the session with decreased symptoms. She demonstrated difficulty with technique with UT stretch. The patient will continue to benefit from ongoing skilled physical therapy to progress toward set goals. PLAN FOR NEXT VISIT: Asses response to cervical retraction SUBJECTIVE: Pt reports that she started a different job duty at work and raises her arms up throughout the day. States the neck is stiff today due to new job. Pt does not feel that exercises are not being helpful. Pain: Pain Pain Level: 2 Pain Location: Neck - Left, Neck - Right, Shoulder - Left, Shoulder - Right Post Treatment Pain Post Treatment Pain Level: Better Post Treatment Pain Location: Neck OBJECTIVE MEASURES WITH LEVEL OF FUNCTION: Increased tightness L occiput compared to R TREATMENT: Therapeutic Exercise: 1: upper trap stretches 3 x 30 sec each 2: levator scapula stretch 3 x 30 sec each 3: cervical flexion stretch 3x30 seconds 4: *Scapular retraction 2x10 5: *Cervical retraction 2x10 Skilled Intervention: Patient was educated in proper exercise technique and purpose for exercises. Reviewed and educated patient on additions/changes for home exercise program as above (*). Skilled judgment was used in selection of appropriate interventions. Provided written instruction for home exercise program to facilitate proper performance and compliance. Correct performance of therapeutic exercises was facilitated with verbal and visual cuing. Manual Therapy: 1: suboccipital releases with favorable response per pt x 5 min 2: manual intermittent cervical traction x 8 min Skilled Intervention: Manual skills to improve joint mobility, ROM, and decrease pain. Utilized anatomy knowledge of the therapist, and assessment of patient's response to intervention. Billing Therapeutic Exercise Treatment Minutes: 37 Manual TherapyTreatment Minutes: 13 Skilled Treatment Time Minutes (timed and untimed codes): 50 Total Session Time (minutes): 50 Session Start Time : 1619 Session Stop Time : 1709 Britany Kashuba, TIESHA Jenkins PT documented in this encounter [facility] 01-18-2024 Note HNO ID: [id number] Author: MERLENE JENKINS PT Service: ? Author Type: Physical Therapist Type: Progress Notes Filed: 01/18/2024 20:55 Note Text: Episode Visit Count: 2 Therapist That Will Accept/Oversee The Plan Of Care: Merlene Jenkins Start of Care Date: 12/28/23 Onset Date: (All my life.) Patient Identified by Name and Date of : Yes REHABILITATION AND SPORTS THERAPY PHYSICAL THERAPY TREATMENT NOTE ASSESSMENT: Shaniqua Carlson tolerated the session with decreased symptoms. She demonstrated difficulty with technique with UT stretch. The patient will continue to benefit from ongoing skilled physical therapy to progress toward set goals. PLAN FOR NEXT VISIT: Asses response to cervical retraction SUBJECTIVE: Pt reports that she started a different job duty at work and raises her arms up throughout the day. States the neck is stiff today due to new job. Pt does not feel that exercises are not being helpful. Pain: Pain Pain Level: 2 Pain Location: Neck - Left, Neck - Right, Shoulder - Left, Shoulder - Right Post Treatment Pain Post Treatment Pain Level: Better Post Treatment Pain Location: Neck OBJECTIVE MEASURES WITH LEVEL OF FUNCTION: Increased tightness L occiput compared to R TREATMENT: Therapeutic Exercise: 1: upper trap stretches 3 x 30 sec each 2: levator scapula stretch 3 x 30 sec each 3: cervical flexion stretch 3x30 seconds 4: *Scapular retraction 2x10 5: *Cervical retraction 2x10 Skilled Intervention: Patient was educated in proper exercise technique and purpose for exercises. Reviewed and educated patient on additions/changes for home exercise program as above (*). Skilled judgment was used in selection of appropriate interventions. Provided written instruction for home exercise program to facilitate proper performance and compliance. Correct performance of therapeutic exercises was facilitated with verbal and visual cuing. Manual Therapy: 1: suboccipital releases with favorable response per pt x 5 min 2: manual intermittent cervical traction x 8 min Skilled Intervention: Manual skills to improve joint mobility, ROM, and decrease pain. Utilized anatomy knowledge of the therapist, and assessment of patient's response to intervention. Billing Therapeutic Exercise Treatment Minutes: 37 Manual TherapyTreatment Minutes: 13 Skilled Treatment Time Minutes (timed and untimed codes): 50 Total Session Time (minutes): 50 Session Start Time : 1620 Session Stop Time : 1710 Britany Forrester, TIESHA Jenkins PT [facility] 12-28-2023 Note HNO ID: [id number] Author: MERLENE JENKINS PT Service: ? Author Type: Physical Therapist Type: Progress Notes Filed: 12/28/2023 19:40 Note Text: Episode Visit Count: 1 Therapist That Will Accept/Oversee The Plan Of Care: Merlene Jenkins Start of Care Date: 12/28/23 Onset Date: (All my life.) Patient Identified by Name and Date of : Yes REHABILITATION AND SPORTS THERAPY PHYSICAL THERAPY EVALUATION PLAN OF CARE: Assessment: Shaniqua Carlson presents with diagnosis of neck pain that interferes with working (has to go to sleep to relieve them) . The patient presents with impairments in flexibility, overall function, posture, range of motion, symptom management, and tissue tenderness. PROMIS? (Patient-Reported Outcomes Measurement Information System) scores were reviewed and identified as within normal limits. Prognosis for therapy is Good due to: current objective clinical presentation, good overall health status, within-session changes, good support system/ coping skills, Prognosis may be limited due to Fair due to: chronic nature of impairments, occupational demands chronic nature of impairments, occupational demands . The patient will benefit from skilled therapy services to meet the goals established for this plan of care as noted below. Goals for Episode of Care: established 12/28/23 Perform working, sleep, and all daily activities with decreased report of symptoms/pain in 4-8 weeks. Improve postural awareness. Independent in a Home Exercise Program. Patient will decrease pain rating by 2 points to meet minimal clinical important difference for numeric pain rating scale. Restore pain free cervical ROM to symmetrical rotation and 55-60 deg lateral flex to allow for improved mobility and pain free mobility and function. Sleep throughout the night without pain/symptoms. Knowledgeable RE: prophylaxis. Pt will demonstrate reduction of soft tissue restrictions via reduction of tenderness to palpation and softening of musculature (reduction of spasms/tightness). Patient Goals: Reduce the headaches. Time Frame for Goals and Treatment : 02/10/24 Planned Interventions, Frequency, and Duration: Current Frequency: 1x every other week Duration: 8 weeks Total Number of Visits Planned: 4 Planned Treatment Interventions: Therapeutic exercise (69264), Neuromuscular re-education (22055), Manual therapy (68963), Self-long term management (40525), Patient/Family/Caregiver Education PLAN FOR NEXT VISIT: Assess response to and performance of HEP. Continue with cervical stretches, scapular/postural strengthening as tolerated, and manual techniques for soft tissue restrictions. May trial dry needling if appropriate and/or symptoms don't respond to exercise. Patient demonstrates good understanding of plan of care and treatment. The above goals and plan of care were discussed and agreed upon by patient/family. SUBJECTIVE: Pt reports neck pain/headaches since childhood. She notes falling at age 8 and was told this was cause of spinal misalignment. Symptom onset,'Used to be once a year, now they are once, sometimes twice a month. Locates back of neck into back of head, L>R temples- 'makes whole side of face hurt. (Noises are loud, lights are bright.) Turns into migraines. Symptoms lasting up to all day. Only way to get rid of them is to go to sleep. Sometimes even that doesn't work. Has tried migraine medication without improvement. Insidious onset (not related to any known cause, random). Can feel them coming on during the day, or sometimes wakes up with it. Patient Goals: Reduce the headaches. 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 Intake Information: Prescription present Previous Treatment: Chiropractor , Ice , Heat , NSAIDs (Tylenol/Ibuprofen (if takes at the right time during onset of sx)) Spine History Symptoms Location at Onset: Neck (suboccipital (centrally, or L> or R)) Pain is Better Sometimes: (sleeping) Sleep Affected by Pain: Pain awakens (can awaken with headaches/pain) Pain: Pain Pain Level: 0 (During rates at 10+, 0 currently, though neck/shoulder muscles are tired/tight from work.) Pain Location: Neck, Head - Right, Head - Left Frequency: Intermittent Post Treatment Pain Post Treatment Pain Level: 0 PROMIS Scales 12/26/2023 Higher is Better Phys Func - Score 46 (within normal limits) Phys Func - Percentile 34 Self-Eff Symptom - Score 51 (Average) Self-Eff Symptom - Percentile 54 T-scores: mean of general population = 50. 5 points is clinically meaningfully difference Percentiles provide an indication of how the patient's score ranks in relation to the general population. Higher percentile rankings indicate better function/quality of life. 50th percentile is the average of the general popul (more content not included)... [facility] 12-28-2023 History of Presen t illness Narrative Episode Visit Count: 1 Therapist That Will Accept/Oversee The Plan Of Care: Merlene Jenkins Start of Care Date: 12/28/23 Onset Date: (All my life.) Patient Identified by Name and Date of : Yes REHABILITATION AND SPORTS THERAPY PHYSICAL THERAPY EVALUATION PLAN OF CARE: Assessment: Shaniqua Carlson presents with diagnosis of neck pain that interferes with working (has to go to sleep to relieve them) . The patient presents with impairments in flexibility, overall function, posture, range of motion, symptom management, and tissue tenderness. PROMIS (Patient-Reported Outcomes Measurement Information System) scores were reviewed and identified as within normal limits. Prognosis for therapy is Good due to: current objective clinical presentation, good overall health status, within-session changes, good support system/ coping skills, Prognosis may be limited due to Fair due to: chronic nature of impairments, occupational demands chronic nature of impairments, occupational demands . The patient will benefit from skilled therapy services to meet the goals established for this plan of care as noted below. Goals for Episode of Care: established 12/28/23 Perform working, sleep, and all daily activities with decreased report of symptoms/pain in 4-8 weeks. Improve postural awareness. Independent in a Home Exercise Program. Patient will decrease pain rating by 2 points to meet minimal clinical important difference for numeric pain rating scale. Restore pain free cervical ROM to symmetrical rotation and 55-60 deg lateral flex to allow for improved mobility and pain free mobility and function. Sleep throughout the night without pain/symptoms. Knowledgeable RE: prophylaxis. Pt will demonstrate reduction of soft tissue restrictions via reduction of tenderness to palpation and softening of musculature (reduction of spasms/tightness). Patient Goals: Reduce the headaches. Time Frame for Goals and Treatment : 02/10/24 Planned Interventions, Frequency, and Duration: Current Frequency: 1x every other week Duration: 8 weeks Total Number of Visits Planned: 4 Planned Treatment Interventions: Therapeutic exercise (15219), Neuromuscular re-education (84572), Manual therapy (05088), Self-long term management (92387), Patient/Family/Caregiver Education PLAN FOR NEXT VISIT: Assess response to and performance of HEP. Continue with cervical stretches, scapular/postural strengthening as tolerated, and manual techniques for soft tissue restrictions. May trial dry needling if appropriate and/or symptoms don't respond to exercise. Patient demonstrates good understanding of plan of care and treatment. The above goals and plan of care were discussed and agreed upon by patient/family. SUBJECTIVE: Pt reports neck pain/headaches since childhood. She notes falling at age 8 and was told this was cause of spinal misalignment. Symptom onset,'Used to be once a year, now they are once, sometimes twice a month. Locates back of neck into back of head, L>R temples- 'makes whole side of face hurt. (Noises are loud, lights are bright.) Turns into migraines. Symptoms lasting up to all day. Only way to get rid of them is to go to sleep. Sometimes even that doesn't work. Has tried migraine medication without improvement. Insidious onset (not related to any known cause, random). Can feel them coming on during the day, or sometimes wakes up with it. Patient Goals: Reduce the headaches. 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 Previous Treatment: Chiropractor , Ice , Heat , NSAIDs (Tylenol/Ibuprofen (if takes at the right time during onset of sx)) Spine History Symptoms Location at Onset: Neck (suboccipital (centrally, or L> or R)) Pain is Better Sometimes: (sleeping) Sleep Affected by Pain: Pain awakens (can awaken with headaches/pain) Pain: Pain Pain Level: 0 (During rates at 10+, 0 currently, though neck/shoulder muscles are tired/tight from work.) Pain Location: Neck, Head - Right, Head - Left Frequency: Intermittent Post Treatment Pain Post Treatment Pain Level: 0 PROMIS Scales 12/26/2023 Higher is Better Phys Func - Score 46 (within normal limits) Phys Func - Percentile 34 Self-Eff Symptom - Score 51 (Average) Self-Eff Symptom - Percentile 54 T-scores: mean of general population = 50. 5 points is clinically meaningfully difference Percentiles provide an indication of how the patient's score ranks in relation to the general population. Higher percentile rankings indicate better function/quality of life. 50th percentile is the average of the general population and indicates half of respondents had a worse score. OBJECTIVE MEASURES WITH LEVEL OF FUNCTION: Spine Observations R Cervical Spine Palpation Tenderness: Upper trapezius, Paraspinals, Suboccipitals L Cervical Spine Palpation Tenderness: Upper trapezius, Paraspinals, Suboccipitals Cervical Spine ROM Cervical ROM : Measurement AROM Cervical Flexion AROM (degrees) : 50 Degrees (felt pulling down lower back) Cervical Extension AROM (degrees) : 40 Degrees (tight at end range) Cervical Side-Bend Right AROM (degrees): 45 Degrees (pull, tight lateral neck muscles) Cervical Side-Bend Left AROM (degrees) : 45 Degrees (pull, tight lateral neck muscles) Cervical Rotation Right AROM (degrees) : 62 Degrees (pulling L paraspinals/upper trap) Cervical Rotation Left AROM (degrees) : 75 Degrees Repeated Test Movements - Cervical Cervical PRO - Symptoms During: produces (R post cervical) Cervical RET - Symptoms During: produces (R post cervical) Special Tests - Cervical Cervical Special Tests: Cervical Distraction Cervical Distraction: (No specific change in symptoms as pt started with 0/10, but pt noted,really felt good.) Vitals BP: 140/96 Education: Education Learning Preferences: Demonstration, Explanation Barriers: None Learning/educational needs: Home exercise program, Plan of Care, Posture Education Provided: Yes, see treatment interventions for education provided Education Provided To: Patient Education Mode/Type: Demonstration, Explanation/Discussion, Literature/Printed Materials, Performance Response to Education/Teach Back: States/Identifies, Return Demonstration TREATMENT: PT Treatment Interventions: Therapeutic Exercise, Manual Therapy Evaluation Therapeutic Exercise: 1: *tennis ball at subocciput in supine as tolerated 2: *tennis ball wall massage 3: *posterior shoulder circles x 10 4: *upper trap stretches 3 x 30 sec each 5: *levator scapula stretch 3 x 30 sec each Skilled Intervention: Patient was educated in proper exercise technique and purpose for exercises. Skilled judgment was used in selection of appropriate interventions. Provided written instruction for home exercise program to facilitate proper performance and compliance. Correct performance of therapeutic exercises was facilitated with verbal and visual cuing. Patient education as noted. Manual Therapy: 1: suboccipital releases with favorable response per pt x 5 min 2: manual intermittent cervical traction x 8 min Skilled Intervention: Manual skills to improve joint mobility, ROM, and decrease pain. Utilized anatomy knowledge of the therapist, and assessment of patient's response to intervention. Manual techniques were performed with clinical decision-making regarding amount of stretch, intensity of pressure and assessment of responses. Billing * Evaluation Low Complexity: 1 Unit Therapeutic Exercise Treatment Minutes: 15 Manual TherapyTreatment Minutes: 13 Total Session Time (minutes): 43 Session Start Time : 8 Session Stop Time : 180 Merlene Jenkins PT Program_ID:[id number] Access Code: [email or web address] URL: [email or web address] Date: 12-28-2023 Prepared By: Merlene Jenkins Program Notes Exercises - Seated Shoulder Shrug Circles AROM Backward - 1-2 x daily - 7 x weekly - 1-2 sets - 10 reps - Seated Gentle Upper Trapezius Stretch - 2 x daily - 7 x weekly - sets - 3-5 reps - Gentle Levator Scapulae Stretch - 2 x daily - 7 x weekly - sets - 3-5 reps documented in this encounter [facility] 12-23-2023 Telephone encounter Note Left detailed vm on identified vm for pt to return call to re-schedule appt with Dr. Garcia for 6 mth f/u. Provider was out sick yesterday. [facility] 12-23-2023 Miscellaneous Notes Left detailed vm on identified vm for pt to return call to re-schedule appt with Dr. Garcia for 6 mth f/u. Provider was out sick yesterday. Patient's 6 month f/u appt from yesterday needs rescheduled. documented in this encounter [facility] 12-22-2023 Telephone encounter Note Patient's 6 month f/u appt from yesterday needs rescheduled. [facility] Work Phone: 11-23-2023 Instructions Jacqueline Serrato APRN.[employer] - 11/23/2023 6:07 PM EDT Stop the imitrex. Continue the metoprolol. Try the maxalt if any breakthrough headaches. Recheck in 1 month. documented in this encounter [facility] 11-23-2023 Note HNO ID: [id number] Author: JACQUELINE SERRATO APRN.SHELL Service: ? Author Type: Nurse Practitioner Type: Progress Notes Filed: 11/23/2023 21:12 Note Text: This is a 48 year old female who presents today with: Patient presents with: Recheck: 2 week follow up- increased metoprolol; added Imitrex HISTORY OF PRESENT ILLNESS: Shaniqua Carlson is a 48 year old female. Patient presents with: Recheck: 2 week follow up- increased metoprolol; added Imitrex Pt presents today for 2 week follow-up of migraines. Increased beta-shakila and ordered imitrex prn 2 weeks ago. Has gotten migraines for a long time, but has been getting more frequent in nature. Always starts at the base of the skull, sometimes right, sometimes left, and sometimes center. She has had one migraine since med change and the imitrex didn't help. Since increasing the metoprolol, hasn't had another migraine yet. Refers that she typically would have had a migraine in that time. With her migraines, she does get photo and phono symptoms photo and phono sensitivity. She also gets nauseated with the headaches. She is also missed work because of the headaches. PAST MEDICAL HISTORY: PAST MEDICAL HISTORY Diagnosis Date Hypertension Hypothyroid ROMAN (obstructive sleep apnea) DME [employer] Panic disorder without agoraphobia Panic disorder PAST SURGICAL HISTORY Procedure Laterality Date PAST SURGICAL HISTORY OF Bilateral 2018 carpal tunnel THYROIDECTOMY SUBTOTAL/PARTIAL TONSILLECTOMY PRIMARY/SECONDARY Tonsillectomy ALLERGIES Amoxicillin, Chlorhexidine, and Ventolin [Albuterol Sulfate] MEDICATIONS Current Outpatient Medications Medication Sig SUMAtriptan (IMITREX) 50 mg tablet Take 1 tablet (50 mg) by mouth once daily as needed for migraine headache (see administration instructions). metoprolol succinate ER (TOPROL XL) 50 mg 24 hr tablet Take 1 tablet by mouth once daily. cholecalciferol, Vitamin D3, (VITAMIN D3) 1,250 mcg (50,000 unit) cap capsule Take 1 capsule by mouth one time a week. buPROPion XL (WELLBUTRIN XL) 300 mg 24 hr tablet Take 1 tablet by mouth once daily. citalopram (CELEXA) 40 mg tablet Take 1 tablet by mouth once daily. meloxicam (MOBIC) 15 mg tablet Take 1 tablet by mouth once daily as needed. With food. levothyroxine (SYNTHROID) 75 mcg tablet Take 1 tablet by mouth daily before breakfast. cyclobenzaprine (FLEXERIL) 10 mg tablet Take 1 tablet by mouth two times a day as needed for muscle spasm. COMPOUNDED PRESCRIPTION AutoPAP 5-15 cmH2O with heated humidification A medium Respironics Jolly View full face mask without chin strap No current facility-administered medications for this visit. FAMILY HISTORY Problem Relation Age of Onset Hypertension Mother Diabetes Mother Hypertension Father Arthritis Father Rheumatoid Stroke Maternal Grandmother Stroke Maternal Grandfather Social History Tobacco Use Smoking status: Never Smokeless tobacco: Never Vaping Use Vaping status: Never Used Substance Use Topics Alcohol use: No Drug use: No EXAM: BP 130/78 Pulse 81 Resp 16 LMP 06/03/2019 SpO2 97% PHYSICAL EXAM: General Appearance: Well appearing, alert, in no acute distress, well-hydrated, well nourished.. Skin: Skin color, texture, turgor normal, no suspicious rashes or lesions. Head: Normocephalic, no masses, lesions, tenderness or abnormalities. Eyes: Anicteric sclera. Extraocular movements are intact. . Lungs: Lungs clear to auscultation. No wheezing, rhonchi, rales.. Heart: RRR without murmur, gallop, or rubs. No ectopy. Neurologic: Gait normal. ASSESSMENT/PLAN: 1. Headache, unspecified headache type - ICD9: 784.0, ICD10: R51.9 (primary diagnosis) Continue the current dose of metoprolol. She has not had a headache since increasing this dose, so hopefully effective as preventative. Will try changing the abortive medication to Maxalt. If this does not work, considering failing 2 different triptans, consider Ubrelvy. - RIZATRIPTAN 10 MG DISINTEGRATING TABLET 2. Neck pain - ICD9: 723.1, ICD10: M54.2 - CONSULT TO PHYSICAL THERAPY Discussed treatment plan and patient voices understanding. Patient's questions answered appropriately. Medications and potential side effects were discussed and patient voices understanding. Return to the office as scheduled or as needed for worsening/no improvement. Jacqueline Serrato APRN.[facility] 11-23-2023 History of Presen t illness Narrative This is a 48 year old female who presents today with: Patient presents with: Recheck: 2 week follow up- increased metoprolol; added Imitrex HISTORY OF PRESENT ILLNESS: Shaniqua Carlson is a 48 year old female. Patient presents with: Recheck: 2 week follow up- increased metoprolol; added Imitrex Pt presents today for 2 week follow-up of migraines. Increased beta-shakila and ordered imitrex prn 2 weeks ago. Has gotten migraines for a long time, but has been getting more frequent in nature. Always starts at the base of the skull, sometimes right, sometimes left, and sometimes center. She has had one migraine since med change and the imitrex didn't help. Since increasing the metoprolol, hasn't had another migraine yet. Refers that she typically would have had a migraine in that time. With her migraines, she does get photo and phono symptoms photo and phono sensitivity. She also gets nauseated with the headaches. She is also missed work because of the headaches. PAST MEDICAL HISTORY: PAST MEDICAL HISTORY Diagnosis Date Hypertension Hypothyroid ROMAN (obstructive sleep apnea) DME [employer] Panic disorder without agoraphobia Panic disorder PAST SURGICAL HISTORY Procedure Laterality Date PAST SURGICAL HISTORY OF Bilateral 2018 carpal tunnel THYROIDECTOMY SUBTOTAL/PARTIAL TONSILLECTOMY PRIMARY/SECONDARY <AGE 12 Tonsillectomy ALLERGIES Amoxicillin, Chlorhexidine, and Ventolin [Albuterol Sulfate] MEDICATIONS Current Outpatient Medications Medication Sig SUMAtriptan (IMITREX) 50 mg tablet Take 1 tablet (50 mg) by mouth once daily as needed for migraine headache (see administration instructions). metoprolol succinate ER (TOPROL XL) 50 mg 24 hr tablet Take 1 tablet by mouth once daily. cholecalciferol, Vitamin D3, (VITAMIN D3) 1,250 mcg (50,000 unit) cap capsule Take 1 capsule by mouth one time a week. buPROPion XL (WELLBUTRIN XL) 300 mg 24 hr tablet Take 1 tablet by mouth once daily. citalopram (CELEXA) 40 mg tablet Take 1 tablet by mouth once daily. meloxicam (MOBIC) 15 mg tablet Take 1 tablet by mouth once daily as needed. With food. levothyroxine (SYNTHROID) 75 mcg tablet Take 1 tablet by mouth daily before breakfast. cyclobenzaprine (FLEXERIL) 10 mg tablet Take 1 tablet by mouth two times a day as needed for muscle spasm. COMPOUNDED PRESCRIPTION AutoPAP 5-15 cmH2O with heated humidification A medium Respironics Jolly View full face mask without chin strap No current facility-administered medications for this visit. FAMILY HISTORY Problem Relation Age of Onset Hypertension Mother Diabetes Mother Hypertension Father Arthritis Father Rheumatoid Stroke Maternal Grandmother Stroke Maternal Grandfather Social History Tobacco Use Smoking status: Never Smokeless tobacco: Never Vaping Use Vaping status: Never Used Substance Use Topics Alcohol use: No Drug use: No EXAM: BP 130/78 Pulse 81 Resp 16 LMP 06/03/2019 SpO2 97% PHYSICAL EXAM: General Appearance: Well appearing, alert, in no acute distress, well-hydrated, well nourished.. Skin: Skin color, texture, turgor normal, no suspicious rashes or lesions. Head: Normocephalic, no masses, lesions, tenderness or abnormalities. Eyes: Anicteric sclera. Extraocular movements are intact. . Lungs: Lungs clear to auscultation. No wheezing, rhonchi, rales.. Heart: RRR without murmur, gallop, or rubs. No ectopy. Neurologic: Gait normal. ASSESSMENT/PLAN: 1. Headache, unspecified headache type - ICD9: 784.0, ICD10: R51.9 (primary diagnosis) Continue the current dose of metoprolol. She has not had a headache since increasing this dose, so hopefully effective as preventative. Will try changing the abortive medication to Maxalt. If this does not work, considering failing 2 different triptans, consider Ubrelvy. - RIZATRIPTAN 10 MG DISINTEGRATING TABLET 2. Neck pain - ICD9: 723.1, ICD10: M54.2 - CONSULT TO PHYSICAL THERAPY Discussed treatment plan and patient voices understanding. Patient's questions answered appropriately. Medications and potential side effects were discussed and patient voices understanding. Return to the office as scheduled or as needed for worsening/no improvement. Jacqueline Srerato APRN.STONE CRUSHER OPERATOR documented in this encounter [facility] 11-02-2023 History of Presen t illness Narrative Radiology Service Progress Note PATIENT NAME: Shaniqua Carlson DATE OF SERVICE: November 02, 2023 TIME: 7:52 PM PATIENT IDENTITY VERIFICATION COMPLETED USING TWO (2) IDENTIFIERS: Name and Date of confirmed by patient verbally. FALL SCREENING: Has the patient had 2 falls in the last year or 1 fall with injury or currently using an Ambulatory Assistive Device (Walker, Cane, Wheelchair, Crutches, etc.)? No PATIENT GENDER DATA: Female. status: : No status: NO. PATIENT RELEVANT IMPLANT DATA REVIEWED: Not Applicable PATIENT PRESENTS WITH AN IMPLANTABLE OR ATTACHED EDITOR DICTIONARY: No RADIOLOGY DEPARTMENT: General X-ray: Exam(s) Completed: Spine X-Ray(s): Cervical AP / LAT / OBL PERIPHERAL IV DATA: Not applicable SIGNED BY: RT Sparkle(R) November 02, 2023 7:52 PM documented in this encounter [facility] 11-02-2023 Note HNO ID: [id number] Author: OSCAR LABOY RT(R) Service: Radiology Author Type: Technologist Type: Progress Notes Filed: 11/02/2023 20:00 Note Text: Radiology Service Progress Note PATIENT NAME: Shaniqua Carlson DATE OF SERVICE: November 02, 2023 TIME: 7:52 PM PATIENT IDENTITY VERIFICATION COMPLETED USING TWO (2) IDENTIFIERS: Name and Date of confirmed by patient verbally. FALL SCREENING: Has the patient had 2 falls in the last year or 1 fall with injury or currently using an Ambulatory Assistive Device (Walker, Cane, Wheelchair, Crutches, etc.)? No PATIENT GENDER DATA: Female. status: : No status: NO. PATIENT RELEVANT IMPLANT DATA REVIEWED: Not Applicable PATIENT PRESENTS WITH AN IMPLANTABLE OR ATTACHED EDITOR DICTIONARY: No RADIOLOGY DEPARTMENT: General X-ray: Exam(s) Completed: Spine X-Ray(s): Cervical AP / LAT / OBL PERIPHERAL IV DATA: Not applicable SIGNED BY: RT Sparkle(R) November 02, 2023 7:52 PM [facility] 11-02-2023 Note HNO ID: [id number] Author: VINCENZO GARCIA MD Service: ? Author Type: Physician Type: Progress Notes Filed: 11/02/2023 19:34 Note Text: Patient presents with: Headache HPI: Patient presents today for office visit for follow up. Migraines: Increasing in frequency. Sometimes able to function with them and sometimes not. Always start in the same place. Has a hx of chronic headaches dating back for years. Has always assumed her neck was part of the issue. Has been to Er several times over the years and had ct scans etc. Not the worst headache she has had. Gets photophobia. Issues with loud noises. Can get sick to her stomach with them. Can go away with sleep. No focal numbness or weakness No auras. Gradually worsening over the last few years. No head injury recently. No recent neck injury. Pain starts in the back of the neck. MEDICATIONS: Current Outpatient Medications Medication Sig cholecalciferol, Vitamin D3, (VITAMIN D3) 1,250 mcg (50,000 unit) cap capsule Take 1 capsule by mouth one time a week. buPROPion XL (WELLBUTRIN XL) 300 mg 24 hr tablet Take 1 tablet by mouth once daily. citalopram (CELEXA) 40 mg tablet Take 1 tablet by mouth once daily. meloxicam (MOBIC) 15 mg tablet Take 1 tablet by mouth once daily as needed. With food. metoprolol succinate ER (TOPROL XL) 25 mg 24 hr tablet Take 1 tablet by mouth once daily. levothyroxine (SYNTHROID) 75 mcg tablet Take 1 tablet by mouth daily before breakfast. cyclobenzaprine (FLEXERIL) 10 mg tablet Take 1 tablet by mouth two times a day as needed for muscle spasm. COMPOUNDED PRESCRIPTION AutoPAP 5-15 cmH2O with heated humidification A medium RespirLaszlo Systemss Jolly View full face mask without chin strap No current facility-administered medications for this visit. ALLERGIES: ALLERGIES Allergen Reactions Amoxicillin Hives Chlorhexidine Rash Chlorapep Ventolin [Albuterol* Shortness of Breath PAST MEDICAL HISTORY Diagnosis Date Hypertension Hypothyroid ROMAN (obstructive sleep apnea) DME [facility] Panic disorder without agoraphobia Panic disorder PAST SURGICAL HISTORY Procedure Laterality Date PAST SURGICAL HISTORY OF Bilateral 2018 carpal tunnel THYROIDECTOMY SUBTOTAL/PARTIAL TONSILLECTOMY PRIMARY/SECONDARY Tonsillectomy FAMILY HISTORY Problem Relation Age of Onset Hypertension Mother Diabetes Mother Hypertension Father Arthritis Father Rheumatoid Stroke Maternal Grandmother Stroke Maternal Grandfather Social History Tobacco Use Smoking status: Never Smokeless tobacco: Never Vaping Use Vaping status: Never Used Substance Use Topics Alcohol use: No Drug use: No Reviewed current medications, allergies, past medical history, surgical history, family history and social history today. REVIEW OF SYSTEMS All other reviewed and negative other than HPI. VITALS: BP 134/92 Pulse 90 Wt 119.3 kg (263 lb) LMP 06/03/2019 SpO2 98% BMI 43.77 kg/m? Last 4 Encounter Wt Readings: Date: Wt: 06/20/2023 112.5 kg (248 lb) 05/18/2023 114.3 kg (252 lb) 03/16/2023 114.8 kg (253 lb) 03/08/2022 112.9 kg (249 lb) PHYSICAL EXAMINATION: General appearance: Well appearing, alert, in no acute distress, well-hydrated, well nourished. Skin: Skin color, texture, turgor normal, no suspicious rashes or lesions Head: Normocephalic, no masses, lesions, tenderness or abnormalities Eyes: Anicteric sclera. Pupils are equally round and reactive to light. Difficult to perform fundi due to photophobia. No gross abnormalities. Neck: Supple, no adenopathy; thyroid symmetric, normal size, no bruits, tender over posterior neck. Lungs: Lungs clear to auscultation. No wheezing, rhonchi, rales Heart: RRR without murmur, gallop, or rubs. No ectopy Abdomen: Normal abdominal exam, Abdomen soft, non-tender. Bowel sounds normal. No masses, organomegaly Extremities: No deformities, edema, skin discoloration, clubbing or cyanosis. Good capillary refill. Musculoskeletal: No joint swelling, deformity, or tenderness Peripheral pulses: Normal Neuro: Gait normal. Reflexes normal and symmetric. Sensation grossly intact. Normal motor exam. ASSESSMENT/PLAN: 1. Headache, unspecified headache type - ICD9: 784.0, ICD10: R51.9 (primary diagnosis) - Discussed risks and benefits of new medication with the patient. Advised them to call if any side effects or questions. - increase metoprolol as a preventative. Use sumatriptan as a prn med. Hold on castings trimmer imaging unless worse. Red flags for re-assessment reviewed with patient in detail. - SUMATRIPTAN 50 MG TABLET - METOPROLOL SUCCINATE ER 50 MG TABLET,EXTENDED RELEASE 24 HR 2. Neck pain - ICD9: 723.1, ICD10: M54.2 - consider physical therapy. - XR CERV OTHER 4V AP/LAT/OBL 3. Essential hypertension - ICD9: 401.9, ICD10: I10 - Worsening control - follow with increased betablocker - METOPROLOL SUCCINATE ER 50 MG TABLET,EXTENDED RELE (more content not included)... [facility] 11-02-2023 History of Presen t illness Narrative Patient presents with: Headache HPI: Patient presents today for office visit for follow up. Migraines: Increasing in frequency. Sometimes able to function with them and sometimes not. Always start in the same place. Has a hx of chronic headaches dating back for years. Has always assumed her neck was part of the issue. Has been to Er several times over the years and had ct scans etc. Not the worst headache she has had. Gets photophobia. Issues with loud noises. Can get sick to her stomach with them. Can go away with sleep. No focal numbness or weakness No auras. Gradually worsening over the last few years. No head injury recently. No recent neck injury. Pain starts in the back of the neck. MEDICATIONS: Current Outpatient Medications Medication Sig cholecalciferol, Vitamin D3, (VITAMIN D3) 1,250 mcg (50,000 unit) cap capsule Take 1 capsule by mouth one time a week. buPROPion XL (WELLBUTRIN XL) 300 mg 24 hr tablet Take 1 tablet by mouth once daily. citalopram (CELEXA) 40 mg tablet Take 1 tablet by mouth once daily. meloxicam (MOBIC) 15 mg tablet Take 1 tablet by mouth once daily as needed. With food. metoprolol succinate ER (TOPROL XL) 25 mg 24 hr tablet Take 1 tablet by mouth once daily. levothyroxine (SYNTHROID) 75 mcg tablet Take 1 tablet by mouth daily before breakfast. cyclobenzaprine (FLEXERIL) 10 mg tablet Take 1 tablet by mouth two times a day as needed for muscle spasm. COMPOUNDED PRESCRIPTION AutoPAP 5-15 cmH2O with heated humidification A medium Respironics Jolly View full face mask without chin strap No current facility-administered medications for this visit. ALLERGIES: ALLERGIES Allergen Reactions Amoxicillin Hives Chlorhexidine Rash Chlorapep Ventolin [Albuterol* Shortness of Breath PAST MEDICAL HISTORY Diagnosis Date Hypertension Hypothyroid ROMAN (obstructive sleep apnea) DME [facility] Panic disorder without agoraphobia Panic disorder PAST SURGICAL HISTORY Procedure Laterality Date PAST SURGICAL HISTORY OF Bilateral 2018 carpal tunnel THYROIDECTOMY SUBTOTAL/PARTIAL TONSILLECTOMY PRIMARY/SECONDARY <AGE 12 Tonsillectomy FAMILY HISTORY Problem Relation Age of Onset Hypertension Mother Diabetes Mother Hypertension Father Arthritis Father Rheumatoid Stroke Maternal Grandmother Stroke Maternal Grandfather Social History Tobacco Use Smoking status: Never Smokeless tobacco: Never Vaping Use Vaping status: Never Used Substance Use Topics Alcohol use: No Drug use: No Reviewed current medications, allergies, past medical history, surgical history, family history and social history today. REVIEW OF SYSTEMS All other reviewed and negative other than HPI. VITALS: BP 134/92 Pulse 90 Wt 119.3 kg (263 lb) LMP 06/03/2019 SpO2 98% BMI 43.77 kg/m Last 4 Encounter Wt Readings: Date: Wt: 06/20/2023 112.5 kg (248 lb) 05/18/2023 114.3 kg (252 lb) 03/16/2023 114.8 kg (253 lb) 03/08/2022 112.9 kg (249 lb) PHYSICAL EXAMINATION: General appearance: Well appearing, alert, in no acute distress, well-hydrated, well nourished. Skin: Skin color, texture, turgor normal, no suspicious rashes or lesions Head: Normocephalic, no masses, lesions, tenderness or abnormalities Eyes: Anicteric sclera. Pupils are equally round and reactive to light. Difficult to perform fundi due to photophobia. No gross abnormalities. Neck: Supple, no adenopathy; thyroid symmetric, normal size, no bruits, tender over posterior neck. Lungs: Lungs clear to auscultation. No wheezing, rhonchi, rales Heart: RRR without murmur, gallop, or rubs. No ectopy Abdomen: Normal abdominal exam, Abdomen soft, non-tender. Bowel sounds normal. No masses, organomegaly Extremities: No deformities, edema, skin discoloration, clubbing or cyanosis. Good capillary refill. Musculoskeletal: No joint swelling, deformity, or tenderness Peripheral pulses: Normal Neuro: Gait normal. Reflexes normal and symmetric. Sensation grossly intact. Normal motor exam. ASSESSMENT/PLAN: 1. Headache, unspecified headache type - ICD9: 784.0, ICD10: R51.9 (primary diagnosis) - Discussed risks and benefits of new medication with the patient. Advised them to call if any side effects or questions. - increase metoprolol as a preventative. Use sumatriptan as a prn med. Hold on castings trimmer imaging unless worse. Red flags for re-assessment reviewed with patient in detail. - SUMATRIPTAN 50 MG TABLET - METOPROLOL SUCCINATE ER 50 MG TABLET,EXTENDED RELEASE 24 HR 2. Neck pain - ICD9: 723.1, ICD10: M54.2 - consider physical therapy. - XR CERV OTHER 4V AP/LAT/OBL 3. Essential hypertension - ICD9: 401.9, ICD10: I10 - Worsening control - follow with increased betablocker - METOPROLOL SUCCINATE ER 50 MG TABLET,EXTENDED RELEASE 24 HR Vincenzo Garcia MD documented in this encounter [facility] 10-13-2023 Miscellaneous Notes Prescription Refill Information The patient has been identified by name and date of : Yes Caregiver verified no other encounters exist for this prescription request: Yes Caregiver confirmed with patient/requestor that no other refills are due, in the near future, with this provider at this time: Yes The last office visit in the department: 08/14/23 Does the patient have a future office visit with this provider/department: Yes, 12/21/23 Requested Prescriptions Pending Prescriptions Disp Refills cholecalciferol, Vitamin D3, (VITAMIN D3) 1,250 mcg (50,000 unit) cap capsule 12 capsule 1 Sig: Take 1 capsule by mouth one time a week. Alejandro Jerez LPN October 13, 2023 9:46 AM documented in this encounter [facility] 10-13-2023 Telephone encounter Note Prescription Refill Information The patient has been identified by name and date of : Yes Caregiver verified no other encounters exist for this prescription request: Yes Caregiver confirmed with patient/requestor that no other refills are due, in the near future, with this provider at this time: Yes The last office visit in the department: 08/14/23 Does the patient have a future office visit with this provider/department: Yes, 12/21/23 Requested Prescriptions Pending Prescriptions Disp Refills cholecalciferol, Vitamin D3, (VITAMIN D3) 1,250 mcg (50,000 unit) cap capsule 12 capsule 1 Sig: Take 1 capsule by mouth one time a week. Alejandro Jerez LPN October 13, 2023 9:46 AM [facility] 08-14-2023 Instructions Jcaqueline Serrato APRN.CNP - 08/14/2023 8:20 AM EDT Schedule w/ ent. (We can fx referral to [facility]) Schedule w/ derm (We can fax referral to [facility]). documented in this encounter [facility] 08-14-2023 Note HNO ID: [id number] Author: JACQUELINE SERRATO APRN.CNP Service: ? Author Type: Nurse Practitioner Type: Progress Notes Filed: 08/14/2023 13:25 Note Text: This is a 48 year old female who presents today with: Bump on neck growing HISTORY OF PRESENT ILLNESS: Shaniqua Carlson is a 48 year old female. Bump on neck growing Pt presents with bump on neck Notices that it has grown over the past couple months No pain No redness Bump on neck is hard Pt has noticed that she has had more fevers lately but is not sure it is related 5 mm x 2 mm x 1 mm Patient has started getting nosebleeds recently Average about 10 minutes but has had nosebleed up to 30 minutes She has had them in the past and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 mammogram): Please call to schedule an appointment for your additional imaging (if you have not already done so). You must have an order/prescription from your physician when calling to schedule your appointment. If your order/prescription is not electronic, you must bring the hard copy with you on the day of your exam to avoid delays. Your imaging studies and reports are kept on file at [facility] as part of your permanent medical record, and are available for your continuing care. Thank you for allowing us to help in meeting your health care needs. Sincerely, Dr. Garduno Interpreting Radiologist [facility] (Additional imaging) documented in this encounter [facility] 03-14-2022 History of Presen t illness Narrative Radiology Service Progress Note PATIENT NAME: Shaniqua Carlson DATE OF SERVICE: March 14, 2022 TIME: 7:26 AM PATIENT IDENTITY VERIFICATION COMPLETED USING TWO (2) IDENTIFIERS: Name and Date of confirmed by patient verbally. FALL SCREENING: Has the patient had 2 falls in the last year or 1 fall with injury or currently using an Ambulatory Assistive Device (Walker, Cane, Wheelchair, Crutches, etc.)? No PATIENT GENDER DATA: Female. status: : No status: NO. PATIENT RELEVANT IMPLANT DATA REVIEWED: Not Applicable RADIOLOGY DEPARTMENT: Mammography PERIPHERAL IV DATA: Not applicable SIGNED BY: RT Derick(R) March 14, 2022 7:26 AM documented in this encounter [facility] 03-08-2022 History of Past i llness Narrative Problem Noted Date Resolved Date Acute headache 03/08/2022 03/08/2022 documented as of this encounter (statuses as of 03/08/2022) [facility] History of Past illness Narrative* Problem Noted Date Resolved Date Acute headache 03/08/2022 03/08/2022 documented as of this encounter (statuses as of 03/14/2022) [facility] History of Past illness Narrative* Problem Noted Date Resolved Date Acute headache 03/08/2022 03/08/2022 documented as of this encounter (statuses as of 03/14/2022) [facility] History of Past illness Narrative* Problem Noted Date Resolved Date Acute headache 03/08/2022 03/08/2022 documented as of this encounter (statuses as of 03/18/2022) [facility] History of Past illness Narrative* Problem Noted Date Resolved Date Acute headache 03/08/2022 03/08/2022 documented as of this encounter (statuses as of 03/19/2022) [address] History of Past illness Narrative* Problem Noted Date Diagnosed Date Resolved Date Acute headache 03/08/2022 03/08/2022 documented as of this encounter (statuses as of 12/14/2022) [address] History of Past illness Narrative* Problem Noted Date Diagnosed Date Resolved Date Acute headache 03/08/2022 03/08/2022 documented as of this encounter (statuses as of 12/14/2022) [address] History of Past illness Narrative* Problem Noted Date Diagnosed Date Resolved Date Acute headache 03/08/2022 03/08/2022 documented as of this encounter (statuses as of 03/16/2023) [address]-2023 History of Past illness Narrative* Problem Noted Date Diagnosed Date Resolved Date Acute headache 03/08/2022 03/08/2022 documented as of this encounter (statuses as of 04/27/2023) [address]-2023 History of Past illness Narrative* Problem Noted Date Diagnosed Date Resolved Date Acute headache 03/08/2022 03/08/2022 documented as of this encounter (statuses as of 05/04/2023) [address]23 History of Past illness Narrative* Problem Noted Date Diagnosed Date Resolved Date Acute headache 03/08/2022 03/08/2022 documented as of this encounter (statuses as of 05/12/2023) [address] History of Past illness Narrative* Problem Noted Date Diagnosed Date Resolved Date Acute headache 03/08/2022 03/08/2022 documented as of this encounter (statuses as of 05/13/2023) [address] History of Past illness Narrative* Problem Noted Date Diagnosed Date Resolved Date Acute headache 03/08/2022 03/08/2022 documented as of this encounter (statuses as of 05/18/2023) [address]23 History of Present illness Narrative* Vincenzo Garcia MD - 03/08/2022 8:01 AM EST Patient presents with: 6 Month Exam Wart: Wart on right ankle HPI: Patient presents today for office visit for follow up. Wart on right ankle. Been there for a year. Tried OTC freezing product but has not completely gone away. Sore spot on right calf. Can feel knot inside calf. X years HTN: Does not check BP at home Denies chest pain Feels like she has to catch her breath sometimes. She says it is often at work. Just feels like shehas to take a deep breath. Once she does that she ok. No shortness of breath when exerting self etc. Red flags for re-assessment reviewed with patient in detail. No edema No palpitations No syncope Frequent headaches. Related to her chronic migraines. No dizziness ROMAN: Not using CPAP. Afraid to use it after pulling it off nightstand and it falling on the floor. Sleeping well without it. Snoring constantly. Refers to snoring like a freight train. Feeling rested whenshe wakes up. Discussed retrying it. HYPOTHYROID: TSH good. 2.790 energy level good. No hair or skin changes PSYCH: medications are working. Hasn't felt on edge. Sleeping well. No suicidal ideation. Component Latest Ref Rng & Units 03/04/2022 WBC 3.70 - 11.00 k/uL 5.95 RBC 3.90 - 5.20 m/uL 4.79 Hemoglobin 11.5 - 15.5 g/dL 13.6 Hematocrit 36.0 - 46.0 % 41.7 MCV 80.0 - 100.0 fL 87.1 MCH 26.0 - 34.0 pg 28.4 MCHC 30.5 - 36.0 g/dL 32.6 RDW-CV 11.5 - 15.0 % 12.5 Platelet Count 150 - 400 k/uL 266 MPV 9.0 - 12.7 fL 11.7 Neut% % 49.9 Abs Neut (ANC) 1.45 - 7.50 k/uL 2.97 Lymph% % 39.7 Abs Lymph 1.00 - 4.00 k/uL 2.36 Divide% % 6.4 Abs Divide <0.87 k/uL 0.38 Eosin% % 2.5 Abs Eosin <0.46 k/uL 0.15 Baso% % 1.2 Abs Baso <0.11 k/uL 0.07 Immature Gran % % 0.3 IMMATURE GRANS (ABS) <0.10 k/uL <0.03 NRBC /100 WBC 0.0 Absolute nRBC <0.01 k/uL <0.01 DTYPE Auto Protein, Total 6.3 - 8.0 g/dL 7.6 Albumin 3.9 - 4.9 g/dL 4.6 Calcium 8.5 - 10.2 mg/dL 9.6 Bilirubin, Total 0.2 - 1.3 mg/dL 0.3 Alkaline Phosphatase 34 - 123 U/L 54 AST 13 - 35 U/L 19 ALT 7 - 38 U/L 23 Glucose 74 - 99 mg/dL 74 BUN 7 - 21 mg/dL 18 Creatinine 0.58 - 0.96 mg/dL 0.78 Sodium 136 - 144 mmol/L 138 Potassium 3.7 - 5.1 mmol/L 4.3 Chloride 97 - 105 mmol/L 103 CO2 22 - 30 mmol/L 26 Anion Gap 9 - 18 mmol/L 9 eGFR >=60 mL/min/1.73m 94 Cholesterol, Total <200 mg/dL 189 Triglyceride <150 mg/dL 227 (H) HDL Cholesterol >39 mg/dL 37 (L) Non HDL Cholesterol <130 mg/dL 152 (H) Fasting Time hrs 3 VLDL Cholesterol <30 mg/dL 45 (H) TC:HDL Ratio <5.10 5.11 (H) LDL Cholesterol <100 mg/dL 107 (H) LDL:HDL Ratio <2.54 2.89 (H) HIV 12 Combo (Ag/Ab) Nonreactive Nonreactive HIV 1/2 Ab HIV Interpretation TSH 0.270 - 4.200 mIU/L 2.790 Hep C Antibody IA Negative Negative MEDICATIONS: Current Outpatient Medications Medication Sig metoprolol succinate ER (TOPROL XL) 25 mg 24 hr tablet Take 1 tablet by mouth once daily. buPROPion XL (WELLBUTRIN XL) 150 mg 24 hr tablet Take 1 tablet by mouth once daily. levothyroxine (SYNTHROID) 75 mcg tablet Take 1 tablet by mouth daily before breakfast. citalopram (CELEXA) 40 mg tablet Take 1 tablet by mouth once daily. COMPOUNDED PRESCRIPTION AutoPAP 5-15 cmH2O with heated humidification A medium Respironics Jolly View full face mask without chin strap No current facility-administered medications for this visit. ALLERGIES: ALLERGIES Allergen Reactions Amoxicillin Hives Chlorhexidine Rash Chlorapep Ventolin [Albuterol* Shortness of Breath PAST MEDICAL HISTORY Diagnosis Date Hypertension Hypothyroid ROMAN (obstructive sleep apnea) DME [employer] Panic disorder without agoraphobia Panic disorder PAST SURGICAL HISTORY Procedure Laterality Date PAST SURGICAL HISTORY OF Bilateral 2018 carpal tunnel THYROIDECTOMY SUBTOTAL/PARTIAL TONSILLECTOMY PRIMARY/SECONDARY <AGE 12 Tonsillectomy FAMILY HISTORY Problem Relation Age of Onset Hypertension Mother Diabetes Mother Hypertension Father Arthritis Father Rheumatoid Stroke Maternal Grandmother Stroke Maternal Grandfather Social History Tobacco Use Smoking status: Never Smokeless tobacco: Never Vaping Use Vaping Use: Never used Substance Use Topics Alcohol use: No Drug use: No Reviewed current medications, allergies, past medical history, surgical history, family history andsocial history today. REVIEW OF SYSTEMS All other reviewed and negative other than HPI. HEALTH MAINTENANCE: Reviewed health maintenance issues today and recommended the following in detail. COLORECTAL CANCER SCREENING Never done DEPRESSION ASSESSMENT Never done MAMMOGRAM due on 02/22/2022 VITALS: BP 138/86 Pulse 82 Ht 165.1 cm (5' 5) Wt 112.9 kg (249 lb) LMP 06/03/2019 SpO2 97% BMI41.44 kg/m Last 4 Encounter Wt Readings: Date: Wt: 08/02/2021 114.3 kg (252 lb) 07/26/2021 115.7 kg (255 lb) 01/24/2021 114.8 kg (253 lb) 07/16/2020 117 kg (258 lb) PHYSICAL EXAMINATION: General appearance: Well appearing, alert, in no acute distress, well-hydrated, well nourished. Skin: smooth lesion on right leg. Was wart like before. Is flattened out likely from otc tx. Head: Normocephalic, no masses, lesions, tenderness or abnormalities Neck: Supple, no adenopathy Lungs: Lungs clear to auscultation. No wheezing, rhonchi, rales Heart: RRR without murmur, gallop, or rubs. No ectopy Abdomen: Normal abdominal exam, Abdomen soft, non-tender. Bowel sounds normal. No masses, organomegaly Extremities: No deformities, edema, skin discoloration, clubbing or cyanosis. Good capillary refill. Musculoskeletal: No joint swelling, deformity, or tenderness ASSESSMENT/PLAN: 1. Essential hypertension - ICD9: 401.9, ICD10: I10 (primary diagnosis) - good control - Continue current medication(s) - Goal of BP <130/80 2. Hypothyroidism, unspecified type - ICD9: 244.9, ICD10: E03.9 - continue meds. Call if any issues. 3. Anxiety - ICD9: 300.00, ICD10: F41.9 - continue meds. Doing well. 4. ROMAN (obstructive sleep apnea) - ICD9: 327.23, ICD10: G47.33 - recommended reconsider tx. 5. Viral warts, unspecified type - ICD9: 078.10, ICD10: B07.9 - Procedure: Risks and benefits of procedure discussed including pain, hyper or hypopigmentation, damage to underlying nerves or blood vessels, and need for further treatment if ineffective. 3 freeze/thaw cycles with Cry-AC liquid nitrogen spray gun. Discussed care after tx. If continue to be an issue, rto in four weeks for retreatment Willing to do mammogram and cologuard. Vincenzo Garcia RTO in six months and prn. documented [facility] Miscellaneous Notes* Telephone Encounter - Alejandro Jerez LPN - 01/04/2022 8:26 AM EST Patient phones requesting refills as follows: Requested Prescriptions Pending Prescriptions Disp Refills metoprolol succinate ER (TOPROL XL) 25 mg 24 hr tablet 90 tablet 3 Sig: Take 1 tablet by mouth once daily. PER 07/26/21 NOV 01/31/22 Please review and advise. Alejandro Jerez LPN documented in this encounterGrand [facility] History of Present illness Narrative* Elizabet Swanson MD - 08/02/2021 2:32 PM EDT Shaniqua Carlson 1975 REFERRING PHYSICIAN: Vincenzo Garcia MD CHIEF COMPLAINT: Consult (hemorrhoids, colonoscopy) HPI: The patient is a 46 year old female presents with complaint of pain and itching of the anal area. She also notes intermittently protruding hemorrhoids. She describes that they protrude about 1-2 cmas demonstrated by finger motions. She describes itching of the entire perianal area. She denies hard stools. She denies abdominal pain She denies blood in stools She denies previous colonoscopy. She denies colon cancer in the family. She admits to straining occasionally with stools. She admits to prolonged sitting - taking a break from work by siting on toilet PAST MEDICAL HISTORY Diagnosis Date Hypertension Hypothyroid ROMAN (obstructive sleep apnea) DME [employer] Panic disorder without agoraphobia Panic disorder PAST SURGICAL HISTORY Procedure Laterality Date PAST SURGICAL HISTORY OF Bilateral 2018 carpal tunnel THYROIDECTOMY SUBTOTAL/PARTIAL TONSILLECTOMY PRIMARY/SECONDARY <AGE 12 Tonsillectomy Current Outpatient Medications Medication Sig buPROPion XL (WELLBUTRIN XL) 150 mg 24 hr tablet Take 1 tablet by mouth once daily. levothyroxine (SYNTHROID) 75 mcg tablet Take 1 tablet by mouth daily before breakfast. metoprolol succinate ER (TOPROL XL) 25 mg 24 hr tablet Take 1 tablet by mouth once daily. citalopram (CELEXA) 40 mg tablet Take 1 tablet by mouth once daily. COMPOUNDED PRESCRIPTION AutoPAP 5-15 cmH2O with heated humidification A medium Respironics Jolly View full face mask without chin strap ALLERGIES: Amoxicillin, Chlorhexidine, and Ventolin [Albuterol Sulfate] PERSONAL HISTORY: Social History Tobacco Use Smoking status: Never Smoker Smokeless tobacco: Never Used Vaping Use Vaping Use: Never used Substance Use Topics Alcohol use: No Drug use: No FAMILY HISTORY Problem Relation Age of Onset Hypertension Mother Diabetes Mother Hypertension Father Arthritis Father Rheumatoid Stroke Maternal Grandmother Stroke Maternal Grandfather The review of systems data was entered by the nurse and reviewed by me General: The patient denies fatigue, denies weight loss, denies weight gain, denies feeling hot, and denies feelings of cold. Eyes: The patient denies glaucoma, denies eye injury/surgery, wears glasses or contacts. Ear/Nose/Throat: The patient notes allergies, denies hayfever, denies ear infections, and denies bloody noses. Cardiovascular: The patient denies chest pain, denies heart disease, notes high blood pressure,denies cardiac stent, denies prior heart attack, denies irregular heart beat, denies high cholesterol, denies poor circulation, denies heart failure, other cardiac issues, denies claudication, denies coldfeet, denies peripheral arterial stent. Respiratory: The patient denies tuberculosis, denies pneumonia, denies frequent cough, denies pulmonary embolism, denies shortness of breath, and denies coughing up blood. Gastrointestinal: The patient denies difficulty swallowing, denies acid reflux, denies ulcers, denies vomiting, denies jaundice/hepatitis, denies gallbladder problems, denies black or tarry stools, notes hemorrhoids, denies bleeding from rectum, denies diverticulitis, denies constipation, denies diarrhea, denies loss of stool control, and denies hernias. Kidney/Bladder: The patient denies kidney stones, denies urine infections, and denies bloody urine. Skin: The patient denies a history of skin cancer, denies bleeding/changing moles, and denies a history of skin rash. Neurologic: The patient denies a history of epilepsy/convulsions, denies headaches, denies head/spinal injuries, and denies stroke/TIA. Psychiatric: The patient denies psychiatric medications, notes depression, and denies voices, denies substance abuse. Endocrine: The patient notes thyroid disorders, denies diabetes, and denies hormonal problems. Hematologic: The patient denies a history of bruising, denies bleeding, and denies anemia, denies blood clots. Infections: The patient denies a history of measles and mumps, denies rheumatic fever, and notes sexually transmitted diseases. Musculoskeletal: The patient denies back pain/injury, notes back problems, denies sciatica, denies knee/foot trouble, denies arthritis, or denies gout. When was patient's last Mammogram screening? 2021 Last Colonoscopy: none Maegan Fontanez LPN PHYSICAL EXAMINATION: General: The patient is 46 year old female, well nourished, well hydrated in no acute distress. Thepatient is oriented to time, place, and person. VITALS: Blood pressure 130/90, pulse 98, temperature 36.3 C (97.3 F), height 165.1 cm (5' 5), weight 114.3 kg (252 lb), last menstrual period 06/03/2019, SpO2 96 %. Body mass index is 41.93 kg/m . Head: Normal cephalic, atraumatic Eyes: pupils are equally round, sclera are clear/anicteric, wearing glasses Neck is supple with no tracheal deviation Respiratory: Normal respiratory excursion and pattern. Abdominal exam: Benign Perianal - normal skin except for retained fecal material, no anal fissure noted, grade 2 internal hemorrhoids, very minimal external hemorrhoids Extremities: no clubbing, cyanosis or edema. Neuro: non focal Psych: normal mood Assessment IMPRESSION: hemorrhoids, perianal itching, screening for colon cancer PLAN: I have discussed the above with the patient. I have explained to patient that her hemorrhoidal disease is not such that any surgical procedure will benefit her. The risks would outweigh the benefits. I have recommended the following for conservative treatment of hemorrhoidal disease: Use of witch zenaida pads - like Tucks - for comfort Use of Sitz baths may help with cleansing, also consider using moist towellettes instead of toilet paper to prevent abrasion to the sensitive skin Soaking in hot tubs with Dreft or epsom salts - to decrease swelling and discomfort Drinking plenty of fluids - 8 - 10 glasses of water per day Avoid caffeinated products - as it will decrease the free water in your body Follow normal bodily urge for bowel movements Avoid straining for bowel movements Avoid prolonged sitting on the toilet Adequate fiber (25-30 grams/day) and water in diet Avoiding prolonged use of hemorrhoidal creams with steroids, using perianal creams with -zack for comfort, etc. I have offered screening colonoscopy. Patient is not interested in undergoing colonoscopy at this point in time. Patient to return to her primary physician for medical care. Return to clinic if any worsening signs/symptoms Patient acknowledges above. I have answered all questions to the patient s satisfaction and the patient has no further questions. . Diagnoses: (L29.0) Anal pruritus (primary encounter diagnosis) (K62.89) Anal or rectal pain (Z12.11) Screening for colon cancer (K64.8) Internal hemorrhoids Return to Clinic: The patient is instructed to follow up in the clinic as above. Medical Decision Making: Problems: Low: Stable chronic illness Risk: Low: Low risk from testing/treatment Medical Decision Making Level: 3 - Low Elizabet Swanson MD documented in this encounterGrand [facility]06[facility] Instructions* Patient Instructions* Elizabet Swanson MD - 08/02/2021 2:16 PM EDT I have recommended the following for conservative treatment of hemorrhoidal disease: Use of witch zenaida pads - like Tucks - for comfort Use of Sitz baths may help with cleansing, also consider using moist towellettes instead of toilet paper to prevent abrasion to the sensitive skin Use of mineral oil - to prevent need for straining for hard stools, stools will become slick . Use one tablespoon ,once or twice a day - can mix with apple sauce/etc. Soaking in hot tubs with Dreft or epsom salts - to decrease swelling and discomfort Drinking plenty of fluids - 8 - 10 glasses of water per day Avoid caffeinated products - as it will decrease the free water in your body Follow normal bodily urge for bowel movements Avoid straining for bowel movements Avoid prolonged sitting on the toilet Adequate fiber (25-30 grams/day) and water in diet Avoiding prolonged use of hemorrhoidal creams with steroids, using perianal creams with -zack for comfort, etc. documented in this encounterGrand [facility]06-24-[facility] Nurse Note* Maegan Fontanez LPN - 08/02/2021 1:41 PM EDT REVIEW OF SYSTEMS: General: The patient denies fatigue, denies weight loss, denies weight gain, denies feeling hot, and denies feelings of cold. Eyes: The patient denies glaucoma, denies eye injury/surgery, wears glasses or contacts. Ear/Nose/Throat: The patient notes allergies, denies hayfever, denies ear infections, and denies bloody noses. Cardiovascular: The patient denies chest pain, denies heart disease, notes high blood pressure,denies cardiac stent, denies prior heart attack, denies irregular heart beat, denies high cholesterol, denies poor circulation, denies heart failure, other cardiac issues, denies claudication, denies coldfeet, denies peripheral arterial stent. Respiratory: The patient denies tuberculosis, denies pneumonia, denies frequent cough, denies pulmonary embolism, denies shortness of breath, and denies coughing up blood. Gastrointestinal: The patient denies difficulty swallowing, denies acid reflux, denies ulcers, denies vomiting, denies jaundice/hepatitis, denies gallbladder problems, denies black or tarry stools, notes hemorrhoids, denies bleeding from rectum, denies diverticulitis, denies constipation, denies diarrhea, denies loss of stool control, and denies hernias. Kidney/Bladder: The patient denies kidney stones, denies urine infections, and denies bloody urine. Skin: The patient denies a history of skin cancer, denies bleeding/changing moles, and denies a history of skin rash. Neurologic: The patient denies a history of epilepsy/convulsions, denies headaches, denies head/spinal injuries, and denies stroke/TIA. Psychiatric: The patient denies psychiatric medications, notes depression, and denies voices, denies substance abuse. Endocrine: The patient notes thyroid disorders, denies diabetes, and denies hormonal problems. Hematologic: The patient denies a history of bruising, denies bleeding, and denies anemia, denies blood clots. Infections: The patient denies a history of measles and mumps, denies rheumatic fever, and notes sexually transmitted diseases. Musculoskeletal: The patient denies back pain/injury, notes back problems, denies sciatica, denies knee/foot trouble, denies arthritis, or denies gout. When was patient's last Mammogram screening? 2021 Last Colonoscopy: none Maegan Fontanez LPN [facility] Diagnosis Anal pruritus- Primary Pruritus ani Anal or rectal pain Screening for colon cancer Special screening for malignant neoplasms, colon Internal hemorrhoids Internal hemorrhoids without mention of complication documented in this encounter [facility]* Diagnosis Essential hypertension Unspecified essential hypertension documented in this encounter [facility]* Diagnosis Essential hypertension- Primary Unspecified essential hypertension Hypothyroidism, unspecified type Anxiety Anxiety state, unspecified ROMAN (obstructive sleep apnea) Obstructive sleep apnea (adult) (pediatric) Viral warts, unspecified type Screening for colon cancer Special screening for malignant neoplasms, colon Screening breast examination Breast screening, unspecified documented in this encounter [facility]* Diagnosis Inconclusive mammography- Primary Inconclusive mammogram documented in this encounter [facility]* Diagnosis Visual disturbance of one eye- Primary Unspecified visual disturbance Treatment not available Procedure not carried out for other reasons documented in this encounter [facility]* Diagnosis Inconclusive mammography Inconclusive mammogram documented in this encounter [facility]* Diagnosis Screening breast examination Breast screening, unspecified documented in this encounter [facility]* Diagnosis URI, acute- Primary Acute upper respiratory infections of unspecified site Acute cough documented in this encounter [facility]* Diagnosis Encounter for screening mammogram for breast cancer documented in this encounter [facility]* Diagnosis Myalgia Mylagia and myositis, unspecified Polyarthralgia Pain in joint, multiple sites Vitamin D deficiency Unspecified vitamin D deficiency documented in this encounter [facility]* Diagnosis Anxiety with depression- Primary Essential hypertension Unspecified essential hypertension ROMAN (obstructive sleep apnea) Obstructive sleep apnea (adult) (pediatric) Hypothyroidism, unspecified type documented in this encounter [facility]* Diagnosis Anxiety- Primary Anxiety state, unspecified Essential hypertension Unspecified essential hypertension ROMAN (obstructive sleep apnea) Obstructive sleep apnea (adult) (pediatric) Hypothyroidism, unspecified type Vitamin D deficiency Unspecified vitamin D deficiency Epistaxis documented in this encounter [facility]* Diagnosis Epidermal inclusion cyst- Primary Sebaceous cyst Epistaxis documented in this encounter [facility]* Diagnosis Myalgia Mylagia and myositis, unspecified Polyarthralgia Pain in joint, multiple sites Vitamin D deficiency Unspecified vitamin D deficiency documented in this encounter [facility]* Diagnosis Neck pain Cervicalgia [facility] Diagnosis Headache, unspecified headache type- Primary Neck pain Cervicalgia Essential hypertension Unspecified essential hypertension documented in this encounter [facility]* Diagnosis Neck pain Cervicalgia documented in this encounter [facility]* Diagnosis Headache, unspecified headache type- Primary Neck pain Cervicalgia documented in this encounter [facility]* Diagnosis Neck pain- Primary Cervicalgia documented in this encounter [facility]* Diagnosis Neck pain- Primary Cervicalgia [facility]* Diagnosis Neck pain- Primary Cervicalgia documented in this encounter [facility]* Diagnosis Anxiety Anxiety state, unspecified [facility]* Diagnosis Myalgia Mylagia and myositis, unspecified Polyarthralgia Pain in joint, multiple sites Vitamin D deficiency Unspecified vitamin D deficiency documented in this [facility]* Diagnosis SOB (shortness of breath)- Primary Shortness of breath [facility]* Diagnosis Bronchitis- Primary Bronchitis, not specified as acute or chronic URI, acute Acute upper respiratory infections of unspecified site Influenza A Influenza with other respiratory manifestations documented in this [facility]* Diagnosis Encounter for screening mammogram for breast cancer documented in this encounter [facility] for referral (narrative)* Diagnostic Procedure Only (Routine) - Pending Review Specialty Diagnoses / Procedures Referred By Rahul purvis Referred To Contact [facility] Diagnoses Screening breast examination Procedures WADE SCREENING SCREENING MAMMOGRAPHY BI 2-VIEW BREAST INC CAD Vincenzo Garcia MD [address] [place] [address] [facility] [address] [address] Referral ID Status Reason Start Date Expiration Date Visits Requested Visits Authorized [id number] Pending Review Auto-Generat ed Referral 03/08/2022 04/07/2023 1 1 [facility] for referral (narrative)* Diagnostic Procedure Only (Routine) - Authorized Specialty Diagnoses / Procedures Referred By Contac t Referred To Contact [facility] Diagnoses Inconclusive mammography Procedures US BREAST LTD LT US BREAST UNI REAL TIME WITH IMAGE LIMITED Vincenzo Garcia MD [address] [place] [address] [facility] [address] [place] [address] Referral ID Status Reason Start Date Expiration Date Visits Requested Visits Authorized [id number] Authorized Auto-Generat ed Referral 03/14/2022 04/13/2023 1 1 * Diagnostic Procedure Only (Routine) - Authorized Specialty Diagnoses / Procedures Referred By Rahul purvis Referred To Contact [facility] Diagnoses Inconclusive mammography Procedures WADE DIAGNOSTIC LT DIAGNOSTIC MAMMOGRAPHY COMPUTER-AIDED DETCJ UNI Vincenzo Garcia MD [address] [place] [address] [facility] [address] [place] [address] Referral ID Status Reason Start Date Expiration Date Visits Requested Visits Authorized [id number] Authorized Auto-Generat ed Referral 03/14/2022 04/13/2023 1 1 [facility] for referral (narrative)* Diagnostic Procedure Only (Routine) - Closed Specialty Diagnoses / Procedures Referred By Rahul purvis Referred To Contact [facility] Diagnoses Screening breast examination Procedures WADE SCREENING SCREENING MAMMOGRAPHY BI 2-VIEW BREAST INC Vincenzo Magallanes MD [address] [place] [address] [facility] [address] [place] [address] Referral ID Status Reason Start Date Expiration Date V isits Requested Visits Authorized [id number] Closed Auto-Generate d Referral 03/08/2022 04/07/2023 1 1 [facility] for referral (narrative)* Diagnostic Procedure Only (Routine) - Pending Review Specialty Diagnoses / Procedures Referred By Rahul purvis Referred To Contact [facility] Diagnoses Encounter for screening mammogram for breast cancer Procedures WADE SCREENING SCREENING MAMMOGRAPHY BI 2-VIEW BREAST INC Vincenzo Magallanes MD [address] [place] [address] [facility] [address] [place] [address] Referral ID Status Reason Start Date Expiration Date Visits Requested Visits Authorized [id number] Pending Review Auto-Generat ed Referral 04/22/2023 05/21/2024 1 1 [facility] for referral (narrative)* Diagnostic Procedure Only (Routine) - Closed Specialty Diagnoses / Procedures Referred By Contac t Referred To Contact [facility] Diagnoses Neck pain Procedures XR CERV OTHER 4V AP/LAT/OBL RADEX SPINE CERVICAL 4 OR 5 VIEWS Jacqueline Serrato, [employer]RIAN[employer]SHELL [address] [place] [address] [place] [address] Referral ID Status Reason Start Date Expiration Date V isits Requested Visits Authorized [id number] Closed Auto-Generate d Referral 01/30/2023 02/29/2024 1 1 [facility] for referral (narrative)* Diagnostic Procedure Only (Routine) - Closed Specialty Diagnoses / Procedures Referred By Contac t Referred To Contact XR IMAGING Diagnoses Neck pain Procedures XR CERV OTHER 4V AP/LAT/OBL RADEX SPINE CERVICAL 4 OR 5 VIEWS Vincenzo Garcia MD [address] [place] [address] [place] [address] Referral ID Status Reason Start Date Expiration Date V isits Requested Visits Authorized [id number] Closed Auto-Generate d Referral 11/02/2023 12/01/2024 1 1 [facility] for referral (narrative)* Diagnostic Procedure Only (Routine) - Closed Specialty Diagnoses / Procedures Referred By Contac t Referred To Contact XR IMAGING Diagnoses Neck pain Procedures XR CERV OTHER 4V AP/LAT/OBL RADEX SPINE CERVICAL 4 OR 5 VIEWS Vincenzo Garcia MD [address] [place] [address] [place] [address] Referral ID Status Reason Start Date Expiration Date V isits Requested Visits Authorized [id number] Closed Auto-Generate d Referral 11/02/2023 12/01/2024 1 1 [facility] for visit Narrative* Diagnostic Procedure Only (Routine) - Closed Specialty Diagnoses / Procedures Referred By Contac t Referred To Contact [facility] Diagnoses Inconclusive mammography Procedures WADE DIAGNOSTIC LT DIAGNOSTIC MAMMOGRAPHY COMPUTER-AIDED DETCJ UNI Vincenzo Garcia MD [address] [place] [address] [facility] [address] [place] [address] Referral ID Status Reason Start Date Expiration Date V isits Requested Visits Authorized [id number] Closed Auto-Generate d Referral 03/14/2022 04/13/2023 1 1 [facility] for visit Narrative* Diagnostic Procedure Only (Routine) - Closed Specialty Diagnoses / Procedures Referred By Contac t Referred To Contact [facility] Diagnoses Screening breast examination Procedures WADE SCREENING SCREENING MAMMOGRAPHY BI 2-VIEW BREAST INC CAD Vincenzo Garcia MD [address] [place] [address] [facility] [address] [place] [id number] Referral ID Status Reason Start Date Expiration Date V isits Requested Visits Authorized [id number] Closed Auto-Generate d Referral 03/08/2022 04/07/2023 1 1 [facility] for visit Narrative* Diagnostic Procedure Only (Routine) - Closed Specialty Diagnoses / Procedures Referred By Contac t Referred To Contact XR IMAGING Diagnoses Neck pain Procedures XR CERV OTHER 4V AP/LAT/OBL RADEX SPINE CERVICAL 4 OR 5 VIEWS Jacqueline Serrato APRN.CNP [address] [place] [address] Xr Imaging [facility] Referral ID Status Reason Start Date Expiration Date V isits Requested Visits Authorized [id number] Closed Auto-Generate d Referral 01/30/2023 02/29/2024 1 1 [facility] for visit Narrative* Diagnostic Procedure Only (Routine) - Closed Specialty Diagnoses / Procedures Referred By Contac t Referred To Contact XR IMAGING Diagnoses Neck pain Procedures XR CERV OTHER 4V AP/LAT/OBL RADEX SPINE CERVICAL 4 OR 5 VIEWS Vincenzo Garcia MD [address] [place] [address] [place] [address] Referral ID Status Reason Start Date Expiration Date V isits Requested Visits Authorized [id number] Closed Auto-Generate d Referral 11/02/2023 12/01/2024 1 1 [facility] Summary Purpose Family History No Family History Records FoundNo Family History Records FoundNo Family History Records Found Advance Directives Documents on File Type Date 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 Advance Directive(s) 11/26/2017 1:06 PM Health Concerns Infection Onset Date Last Indicated Resolved Time COVID-19 Rule-Out 03/16/2023 03/16/2023 Reason for Referral Specialty Diagnoses / Procedures Referred By Contac t Referred To Contact Ent - Otolaryngology Diagnoses Epistaxis Procedures CONSULT TO ENT OFFICE/OUTPATIENT [facility] MDM 60 MINUTES Jacqueline Serrato APRN.STONE CRUSHER OPERATOR [address] [place] [address] Referral ID Status Reason Start Date Expiration Date Visits Requested Visits Authorized [id number] Authorized PCP Requested Referral 08/14/2023 08/13/2024 1 1 Specialty Diagnoses / Procedures Referred By Contac t Referred To Contact Dermatology Diagnoses Epidermal inclusion cyst Procedures CONSULT TO DERMATOLOGY Jacqueline Serrato APRN.STONE CRUSHER OPERATOR [address] [place] [address] Referral ID Status Reason Start Date Expiration Date Visits Requested Visits Authorized [id number] Ref Not Required PCP Requested Referral 08/14/2023 08/13/2024 1 1 Specialty Diagnoses / Procedures Referred By Contac t Referred To Contact [facility] Diagnoses Neck pain Procedures CONSULT TO PHYSICAL THERAPY PHYSICAL THERAPY EVALUATION HIGH COMPLEX 45 MINS Jacqueline Serrato APRN.STONE CRUSHER OPERATOR [address] [place] [address] [facility] [address] [place] [address] Referral ID Status Reason Start Date Expiration Date Visits Requested Visits Authorized [id number] Pending Review Auto-Generat ed Referral 11/22/2024 1 1 Additional Source Comments INFORMATION SOURCE (unrecogn ized section and content) DATE CREATED AUTHOR 10/24/2017 [facility] DATE CREATED AUTHOR AUTHOR'S ORGANIZ ATION 04/18/2024 [facility] DATE CREATED AUTHOR AUTHOR'S ORGANIZ ATION 07/16/2024 [facility] Source Comments (unrecognize d section and content) In the event this informatio n is protected by the Federal Confidentiality of Alcohol and Drug Abuse Patient Records regulations: The Federal rules restrict any use of the information to criminally investigate or prosecute any alcohol or drug abuse patient.[facility] the event this information is protected by the Federal Confidentiality of Alcohol and Drug Abuse Patient Records regulations: The Federal rules restrict any use of the information to criminally investigate or prosecute any alcohol or drug abuse patient.[facility] the event this information is protected by the Federal Confidentiality of Alcohol and Drug Abuse Patient Records regulations: The Federal rules restrict any use of the information to criminally investigate or prosecute any alcohol or drug abuse patient.[facility] the event this information is protected by the Federal Confidentiality of Alcohol and Drug Abuse Patient Records regulations: The Federal rules restrict any use of the information to criminally investigate or prosecute any alcohol or drug abuse patient.[facility] HospitalIn the event this information is protected by the Federal Confidentiality of Alcohol and Drug Abuse Patient Records regulations: The Federal rules restrict any use of the information to criminally investigate or prosecute any alcohol or drug abuse patient.[facility] HospitalIn the event this information is protected by the Federal Confidentiality of Alcohol and Drug Abuse Patient Records regulations: The Federal rules restrict any use of the information to criminally investigate or prosecute any alcohol or drug abuse patient.[facility] HospitalIn the event this information is protected by the Federal Confidentiality of Alcohol and Drug Abuse Patient Records regulations: The Federal rules restrict any use of the information to criminally investigate or prosecute any alcohol or drug abuse patient.[facility] HospitalIn the event this information is protected by the Federal Confidentiality of Alcohol and Drug Abuse Patient Records regulations: The Federal rules restrict any use of the information to criminally investigate or prosecute any alcohol or drug abuse patient.[facility] HospitalIn the event this information is protected by the Federal Confidentiality of Alcohol and Drug Abuse Patient Records regulations: The Federal rules restrict any use of the information to criminally investigate or prosecute any alcohol or drug abuse patient.[facility] HospitalIn the event this information is protected by the Federal Confidentiality of Alcohol and Drug Abuse Patient Records regulations: The Federal rules restrict any use of the information to criminally investigate or prosecute any alcohol or drug abuse patient.[facility] HospitalIn the event this information is protected by the Federal Confidentiality of Alcohol and Drug Abuse Patient Records regulations: The Federal rules restrict any use of the information to criminally investigate or prosecute any alcohol or drug abuse patient.[facility] HospitalIn the event this information is protected by the Federal Confidentiality of Alcohol and Drug Abuse Patient Records regulations: The Federal rules restrict any use of the information to criminally investigate or prosecute any alcohol or drug abuse patient.[facility] HospitalIn the event this information is protected by the Federal Confidentiality of Alcohol and Drug Abuse Patient Records regulations: The Federal rules restrict any use of the information to criminally investigate or prosecute any alcohol or drug abuse patient.[facility] HospitalIn the event this information is protected by the Federal Confidentiality of Alcohol and Drug Abuse Patient Records regulations: The Federal rules restrict any use of the information to criminally investigate or prosecute any alcohol or drug abuse patient.[facility] HospitalIn the event this information is protected by the Federal Confidentiality of Alcohol and Drug Abuse Patient Records regulations: The Federal rules restrict any use of the information to criminally investigate or prosecute any alcohol or drug abuse patient.[facility] HospitalIn the event this information is protected by the Federal Confidentiality of Alcohol and Drug Abuse Patient Records regulations: The Federal rules restrict any use of the information to criminally investigate or prosecute any alcohol or drug abuse patient.[facility] HospitalIn the event this information is protected by the Federal Confidentiality of Alcohol and Drug Abuse Patient Records regulations: The Federal rules restrict any use of the information to criminally investigate or prosecute any alcohol or drug abuse patient.[facility] HospitalIn the event this information is protected by the Federal Confidentiality of Alcohol and Drug Abuse Patient Records regulations: The Federal rules restrict any use of the information to criminally investigate or prosecute any alcohol or drug abuse patient.[facility] HospitalIn the event this information is protected by the Federal Confidentiality of Alcohol and Drug Abuse Patient Records regulations: The Federal rules restrict any use of the information to criminally investigate or prosecute any alcohol or drug abuse patient.[facility] HospitalIn the event this information is protected by the Federal Confidentiality of Alcohol and Drug Abuse Patient Records regulations: The Federal rules restrict any use of the information to criminally investigate or prosecute any alcohol or drug abuse patient.[facility] HospitalIn the event this information is protected by the Federal Confidentiality of Alcohol and Drug Abuse Patient Records regulations: The Federal rules restrict any use of the information to criminally investigate or prosecute any alcohol or drug abuse patient.[facility] HospitalIn the event this information is protected by the Federal Confidentiality of Alcohol and Drug Abuse Patient Records regulations: The Federal rules restrict any use of the information to criminally investigate or prosecute any alcohol or drug abuse patient.[facility] HospitalIn the event this information is protected by the Federal Confidentiality of Alcohol and Drug Abuse Patient Records regulations: The Federal rules restrict any use of the information to criminally investigate or prosecute any alcohol or drug abuse patient.[facility] HospitalIn the event this information is protected by the Federal Confidentiality of Alcohol and Drug Abuse Patient Records regulations: The Federal rules restrict any use of the information to criminally investigate or prosecute any alcohol or drug abuse patient.[facility] HospitalIn the event this information is protected by the Federal Confidentiality of Alcohol and Drug Abuse Patient Records regulations: The Federal rules restrict any use of the information to criminally investigate or prosecute any alcohol or drug abuse patient.[facility] HospitalIn the event this information is protected by the Federal Confidentiality of Alcohol and Drug Abuse Patient Records regulations: The Federal rules restrict any use of the information to criminally investigate or prosecute any alcohol or drug abuse patient.[facility] HospitalIn the event this information is protected by the Federal Confidentiality of Alcohol and Drug Abuse Patient Records regulations: The Federal rules restrict any use of the information to criminally investigate or prosecute any alcohol or drug abuse patient.[facility] HospitalIn the event this information is protected by the Federal Confidentiality of Alcohol and Drug Abuse Patient Records regulations: The Federal rules restrict any use of the information to criminally investigate or prosecute any alcohol or drug abuse patient.[facility] HospitalIn the event this information is protected by the Federal Confidentiality of Alcohol and Drug Abuse Patient Records regulations: The Federal rules restrict any use of the information to criminally investigate or prosecute any alcohol or drug abuse patient.[facility] HospitalIn the event this information is protected by the Federal Confidentiality of Alcohol and Drug Abuse Patient Records regulations: The Federal rules restrict any use of the information to criminally investigate or prosecute any alcohol or drug abuse patient.[facility] HospitalIn the event this information is protected by the Federal Confidentiality of Alcohol and Drug Abuse Patient Records regulations: The Federal rules restrict any use of the information to criminally investigate or prosecute any alcohol or drug abuse patient.[facility] HospitalIn the event this information is protected by the Federal Confidentiality of Alcohol and Drug Abuse Patient Records regulations: The Federal rules restrict any use of the information to criminally investigate or prosecute any alcohol or drug abuse patient.[facility] Reason for Visit (unrecogniz ed section and content) Reason Comments Consult hemorrhoids, colonos copy Specialty Diagnoses / Procedures Referred By Rahul purvis Referred To Contact General Surgery Diagnoses Screening for colon cancer Internal hemorrhoids Procedures CONSULT TO GENERAL SURGERY OFFICE/OUTPATIENT [facility] MDM 60-74 MINUTES Vincenzo Garcia MD [address] [place] [address] Referral ID Status Reason Start Date Expiration Date V isits Requested Visits Authorized [id number] Closed PCP Requested Referral 07/26/2021 07/26/2022 1 1 Reason Onset Date Comments Refill Request 01/03/2022 Reason Comments 6 Month Exam Wart Wart on right ankle Reason Comments Results Reason Comments Mammogram Result Call Back Reason Comments Cough chest congestion, na tigist congestion, drainage and sore throat x 3 days Reason Comments Results Reason Comments Depression Reason Comments Anxiety Medication follow up Epistaxis Reason Onset Date Comments Refill Request 10/10/2023 Reason Comments Headache Reason Comments Recheck 2 week follow up- in creased metoprolol; added Imitrex Reason Comments Results Appointment Reason Comments PT Eval Specialty Diagnoses / Procedures Referred By Contac t Referred To Contact [facility] Diagnoses Neck pain Procedures CONSULT TO PHYSICAL THERAPY PHYSICAL THERAPY EVALUATION HIGH COMPLEX 45 MINS Jacqueline Serrato APRN.STONE CRUSHER OPERATOR [address] [place] [address] [facility] [address] [place] [address] Referral ID Status Reason Start Date Expiration Date Visits Requested Visits Authorized [id number] Authorized Auto-Generat ed Referral 02/09/2023 02/09/2024 99 99 Reason Comments Physical Therapy Specialty Diagnoses / Procedures Referred By Rahul purvis Referred To Contact PHYSICAL THERAPY Diagnoses Neck pain Procedures CONSULT TO PHYSICAL THERAPY PHYSICAL THERAPY EVALUATION HIGH COMPLEX 45 MINS Jacqueline Serrato, ADRIAN.STONE CRUSHER OPERATOR [address] [place] [address] [facility] [address] [place] [address] Reason Onset Date Comments Refill Request 02/04/2024 Reason Onset Date Comments Refill Request 03/31/2024 Reason Comments Cough Congestion, sore thr oat, chest pain, sob x 1 day Reason Comments ER F/U [facility] ER 04/02 dx: flu Care Teams (unrecognized sec tion and content) 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 Relationship Specialty Start Date End Date Vincenzo Garcia MD [address] [place] [address] PCP - General Family Practice 06/04/17 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 Relationship Specialty Start Date End Date Vincenzo Garcia MD [address] [place] [address] PCP - General Family Medicine 06/04/17 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 Relationship Specialty Start Date End Date Vincenzo Garcia MD [address] [place], [place] [address] PCP - General Family Medicine 06/04/17 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 Relationship Specialty Start Date End Date Vincenzo Garcia MD [address] [place], [place] [id number] PCP - General Family Medicine 06/04/17 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 Relationship Specialty Start Date End Date Vincenzo Garcia MD [address] [place], [place] [id number] PCP - General Family Medicine 06/04/17 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 Relationship Specialty Start Date End Date Vincenzo Garcia MD [address] [facility] [place] [address] PCP - General Family Medicine 06/04/17 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 Relationship Specialty Start Date End Date Vincenzo Garcia MD [address] [facility] [place] [place] [address] PCP - General Family Medicine 06/04/17 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 Relationship Specialty Start Date End Date Vincenzo Garcia MD [address] [facility] [place] [place] [address] PCP - General Family Medicine 06/04/17 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 Relationship Specialty Start Date End Date Vincenzo Garcia MD [address] [place] [address] PCP - General Family Medicine 06/04/17 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 Relationship Specialty Start Date End Date Vincenzo Garcia MD [address] [facility] [place] [address] PCP - General Family Medicine 06/04/17 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 Relationship Specialty Start Date End Date Vincenzo Garcia MD [address] [place] [address] PCP - General Family Medicine 06/04/17 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 Relationship Specialty Start Date End Date Vincenzo Garcia MD [address] [facility] [place] [address] PCP - General Family Medicine 06/04/17 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 Relationship Specialty Start Date End Date Vincenzo Garcia MD [address] [facility] [place] [address] PCP - General Family Medicine 06/04/17 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 Relationship Specialty Start Date End Date Vincenzo Garcia MD [address] [place], [place] [address] PCP - General Family Medicine 06/04/17 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 Relationship Specialty Start Date End Date Vincenzo Garcia MD [address] [place], [place] [address] PCP - General Family Medicine 06/04/17 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 Relationship Specialty Start Date End Date Vincenzo Garcia MD [address] [place] [address] PCP - General Family Medicine 06/04/17 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 Relationship Specialty Start Date End Date Vincenzo Garcia MD [address] [place] [address] PCP - General Family Medicine 06/04/17 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 Relationship Specialty Start Date End Date Vincenzo Garcia MD [address] [place] [address] PCP - General Family Medicine 06/04/17 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 Relationship Specialty Start Date End Date Vincenzo Garcia MD [address] [place] [address] PCP - General Family Medicine 06/04/17 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 Relationship Specialty Start Date End Date Vincenzo Garcia MD [address] [place], [place] [address] PCP - General Family Medicine 06/04/17 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 Relationship Specialty Start Date End Date Vincenzo Garcia MD [address] [place], [place] [address] PCP - General Family Medicine 06/04/17 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 Relationship Specialty Start Date End Date Vincenzo Garcia MD [address] [place], [place] [address] PCP - General Family Medicine 06/04/17 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 Relationship Specialty Start Date End Date Vincenzo Garcia MD [address] [place] [address] PCP - General Family Medicine 06/04/17 Jacqueline Serrato APRN.STONE CRUSHER OPERATOR [address] [place] [address] [employer] [facility] 01/18/24 Griselda Min INTERNAL MEDICINE VETERINARY TECHNICIAN.STONE CRUSHER OPERATOR [address] [place] [address] [facility] 01/18/24 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 Relationship Specialty Start Date End Date Vincenzo Garcia MD [address] [place] [address] PCP - General Family Medicine 06/04/17 Jacqueline Serrato INTERNAL MEDICINE VETERINARY TECHNICIAN.STONE CRUSHER OPERATOR [address] [place] [address] [facility] 01/18/24 Griselda Min INTERNAL MEDICINE VETERINARY TECHNICIAN.STONE CRUSHER OPERATOR [address] [place] [address] [facility] 01/18/24 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 Relationship Specialty Start Date End Date Vincenzo Garcia MD [address] [place] [address] PCP - General Family Medicine 06/04/17 Jacqueline Serrato APRN.STONE CRUSHER OPERATOR [address] [facility] [place] [address] [employer] 01/18/24 Griselda Min INTERNAL MEDICINE VETERINARY TECHNICIAN.STONE CRUSHER OPERATOR [address] [facility] [place] [address] [employer] 01/18/24 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 Relationship Specialty Start Date End Date Vincenzo Garcia MD [address] [facility] [address] PCP - General Family Medicine 06/04/17 Jacqueline Serrato, INTERNAL MEDICINE VETERINARY TECHNICIAN.STONE CRUSHER OPERATOR [address] [facility] [place] [address] [employer] 01/18/24 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 Relationship Specialty Start Date End Date Vincenzo Garcia MD [address] [facility] [place] [address] PCP - General Family Medicine 06/04/17 Jacqueline Serrato, INTERNAL MEDICINE VETERINARY TECHNICIAN.STONE CRUSHER OPERATOR [address] [facility] [place] [address] [facility] 01/18/24 Griselda Min INTERNAL MEDICINE VETERINARY TECHNICIAN.STONE CRUSHER OPERATOR [address] [facility] [place] [address] [employer] 01/18/24 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 Relationship Specialty Start Date End Date Vincenzo Garcia MD [address] [facility] [place] [address] PCP - General Family Medicine 06/04/17 Jacqueline Serraot APRN.STONE CRUSHER OPERATOR [address] [facility] [place] [place] [address] [facility] 01/18/24 Griselda Min APRN.STONE CRUSHER OPERATOR [address] [facility] [place] [address] [facility] 01/18/24 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 Relationship Specialty Start Date End Date Vincenzo Garcia MD [address] [place] [address] PCP - General Family Medicine 06/04/17 Jacqueline Serrato APRN.STONE CRUSHER OPERATOR [address] [place] [address] [facility] 01/18/24 Girselda Min APRN.STONE CRUSHER OPERATOR [address] [place] [address] [facility] 01/18/24 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 Relationship Specialty Start Date End Date Vincenzo Garcia MD [address] [place] [address] PCP - General Family Medicine 06/04/17 Jacqueline Serrato APRN.STONE CRUSHER OPERATOR [address] [place] [address] [facility] 01/18/24 Griselda Min APRN.STONE CRUSHER OPERATOR [address] [place] [address] [facility] 01/18/24 FOR RECORDS PERTAINING TO PATIENTS WHO ARE OR HAVE BEEN ENROLLED IN A CHEMICAL DEPENDENCY/SUBSTANCEABUSE PROGRAM, SOME INFORMATION MAY BE OMITTED. This clinical summary was aggregated from multiple sources. Caution should be exercised in using it in the provision of clinical care. This summary normalizes information from multiple sources, and as a consequence, information in this document may materially change the coding, format and clinical context of patient data. In addition, data may be omitted in some cases. CLINICAL DECISIONS SHOULD BE BASED ON THE PRIMARY CLINICAL RECORDS. [facility]. provides no warranty or guarantee of the accuracy or completeness of information in this document.
[2024-07-18 05:59] VITALS: BP 182/108; PULSE 88; RESP 18; TEMP 36.8; O2SAT 98
== END 2024-07-18 06:07 | disposition home or self-care (01) ==
PROVIDERS: Emergency Provider Emergency Medicine; PCP Family Medicine; Visit Provider Emergency Medicine
DX: G43.909 Migraine, unspecified, not intractable, without status migrainosus (principal); I10 Essential (primary) hypertension; E03.9 Hypothyroidism, unspecified; F32.A Depression, unspecified; Z79.899 Other long term (current) drug therapy; Z79.890 Hormone replacement therapy
CPT/HCPCS: 93005; 96361; 96374; 99285; A4216